=== PATIENT | male | born 1965 | race Caucasian/White ===

== ENCOUNTER → 2024-03-27 10:00 | Outpatient (REF) | payer OTHER, SELFPAY | LOC: HWRAD 10:00 | PROVIDERS: ATTENDING PHYSICIAN Internal Medicine | DX: M54.16 Radiculopathy, lumbar region (principal); M54.2 Cervicalgia | CPT/HCPCS: 72050; 72110 ==

== ENCOUNTER → 2024-04-11 13:59 | Outpatient (REF) | payer OTHER, SELFPAY | LOC: HWRAD 13:59 | PROVIDERS: ATTENDING PHYSICIAN Internal Medicine | DX: I71.40 Abdominal aortic aneurysm, without rupture, unspecified (principal) | CPT/HCPCS: 76770 ==

== ENCOUNTER → 2024-07-09 08:01 | Outpatient (REF) | payer OTHER, SELFPAY | LOC: DHCBC/DCA 08:01 | PROVIDERS: ATTENDING PHYSICIAN Internal Medicine Cardiovascular Disease; FAMILY PHYSICIAN Internal Medicine | DX: R07.89 Other chest pain (principal) | CPT/HCPCS: 78452; 93017; A9500 ==

== ENCOUNTER → 2024-08-06 13:55 | Outpatient (REF) | payer OTHER, MEDICARE, SELFPAY | LOC: HWRCS 13:55 | PROVIDERS: ATTENDING PHYSICIAN Internal Medicine Cardiovascular Disease; FAMILY PHYSICIAN Internal Medicine | DX: R07.89 Other chest pain (principal) | CPT/HCPCS: 93306 ==

== ENCOUNTER → 2025-01-28 08:05 | Outpatient (REF) | payer OTHER, SELFPAY | LOC: HWRAD 08:05 | PROVIDERS: ATTENDING PHYSICIAN Internal Medicine; FAMILY PHYSICIAN Internal Medicine | DX: Z87.891 Personal history of nicotine dependence (principal); F17.210 Nicotine dependence, cigarettes, uncomplicated | CPT/HCPCS: 71271 ==

== ENCOUNTER 2025-02-16 06:41 | Day surgery (SDC) | payer OTHER, SELFPAY ==
[2025-02-10 09:02] LABS: Hemoglobin 14.3 g/dL (13.0-18.0); Mean Corp Hgb Conc. 33.3 g/dL (33.0-37.0); Mean Corpuscular Hgb 29.7 pg (27.0-31.0); Mean Corpuscular Volume 89.4 fL (80.0-94.0); Mean Platelet Volume 9.6 fL (7.4-10.4); Platelet Count 252 10^3/uL (130-400); Red Blood Cell Count 4.81 10^6/uL (4.70-6.10); Red Cell Dist. Width 14.1 % (11.5-14.5); White Blood Cell Count 6.2 10^3/uL (4.8-10.8)
[2025-02-10 09:16] LABS: APTT 31.1 Sec (23.4-35.0); INR 1.05
[2025-02-10 09:47] LABS: Blood Urea Nitrogen 13 mg/dl (9-20); Calcium 9.5 mg/dl (8.4-10.2); Carbon Dioxide 26 mmol/L (22-30); Chloride 107 mmol/L (98-107); Glucose 129 mg/dl (70-99); Potassium 4.7 mmol/L (3.5-5.1); Sodium 143 mmol/L (135-145); eGFR > 60.00
[2025-02-10 13:53] VITALS: BMI 24.4
[2025-02-16] VITALS (9 sets, daily range): BP systolic 113–157; BP diastolic 69–92; BMI 24.4
[2025-02-16] MEDS: DUONEB 3 ML INH (12:59)
== END 2025-02-16 17:14 | disposition home or self-care (01) ==
LOC: GI 06:41
PROVIDERS: ATTENDING PHYSICIAN Internal Medicine Critical Care Medicine; FAMILY PHYSICIAN Internal Medicine
DX: C34.12 Malignant neoplasm of upper lobe, left bronchus or lung (principal); R91.8 Other nonspecific abnormal finding of lung field; R06.02 Shortness of breath; J43.9 Emphysema, unspecified; R93.89 Abnormal findings on diagnostic imaging of other specified body structures; Z72.0 Tobacco use
CPT/HCPCS: 31629; 31628; 31624; 31623; 31654; 31627; 88173; 88305; 36415; 71045; 76000; 80048; 85027; 85610; 85730; 87015; 87070; 87102; 87116; 87205; 88112; 88341; 88342; 94640; C1887

== ENCOUNTER → 2025-02-25 13:14 | Outpatient (REF) | payer OTHER, SELFPAY | LOC: PET 13:14 | PROVIDERS: ATTENDING PHYSICIAN Internal Medicine Critical Care Medicine | DX: C34.12 Malignant neoplasm of upper lobe, left bronchus or lung (principal) | CPT/HCPCS: 78815; A9552 ==

== ENCOUNTER → 2025-03-05 20:33 | Outpatient (REF) | payer OTHER, SELFPAY | LOC: MRI 3T 20:33 | PROVIDERS: ATTENDING PHYSICIAN Internal Medicine Hematology & Oncology; FAMILY PHYSICIAN Internal Medicine | DX: C34.12 Malignant neoplasm of upper lobe, left bronchus or lung (principal) | CPT/HCPCS: 70553; A9575 ==

== ENCOUNTER 2025-04-15 07:34 | Inpatient (IN) | payer OTHER, SELFPAY ==
[2025-03-26 08:28] VITALS: BMI 29.1
[2025-03-26 09:00] LABS: % Basophils 0.8 % (0-2); % Immature Granulocytes 0.8 % (0-0.5); % Lymphocytes 29.9 % (20.5-51.1); % Monocytes 7.6 % (1.7-9.3); % Neutrophils 54.9 % (42.2-75.2); Absolute Basophils 0.1 10^3/uL (0-0.2); Absolute Eosinophils 0.4 10^3/uL (0-0.7); Absolute Immature Granulocytes 0.1 10^3/uL (0-0.05); Absolute Lymphocytes 2.1 10^3/uL (1.2-3.4); Absolute Monocytes 0.5 10^3/uL (0.1-0.6); Absolute Neutrophils 3.9 10^3/uL (1.4-6.5); Hematocrit 43.9 % (39.0-52.0); Hemoglobin 14.9 g/dL (13.0-18.0); Mean Corp Hgb Conc. 33.9 g/dL (33.0-37.0); Mean Corpuscular Hgb 29.6 pg (27.0-31.0); Mean Corpuscular Volume 87.1 fL (80.0-94.0); Mean Platelet Volume 9.6 fL (7.4-10.4); Nucleated Red Blood Cells % 0 % (-); Platelet Count 251 10^3/uL (130-400); Red Blood Cell Count 5.04 10^6/uL (4.70-6.10); Red Cell Dist. Width 13.5 % (11.5-14.5); White Blood Cell Count 7.2 10^3/uL (4.8-10.8)
[2025-03-26 09:14] LABS: APTT 30.3 Sec (23.4-35.0); INR 0.99; PT 13.4 Sec (11.4-14.6)
[2025-03-26 09:34] LABS: Glycohemoglobin (HgbA1c) 5.8 % (4.0-5.6)
[2025-03-26 09:45] LABS: ALT (SGPT) 25 U/L (0-50); AST (SGOT) 20 U/L (17-59); Albumin 4.8 g/dl (3.5-5.0); Alkaline Phosphatase 63 U/L (38-126); Blood Urea Nitrogen 15 mg/dl (9-20); Calcium 9.5 mg/dl (8.4-10.2); Carbon Dioxide 21 mmol/L (22-30); Chloride 108 mmol/L (98-107); Direct Bilirubin 0.1 mg/dl (0.0-0.4); Estimated Creatinine Clearance 101 ml/min; Glucose 122 mg/dl (70-99); Potassium 4.7 mmol/L (3.5-5.1); Sodium 139 mmol/L (135-145); Total Bilirubin 0.6 mg/dl (0.2-1.3); Total Protein 7.8 g/dl (6.3-8.2); eGFR > 60.00
--- NOTE | 2025-03-26 09:52 | CM ---
Met with Mr. Serrato in [facility]. He states prior to admission he resides alone in a second floor walk-up duplex with twenty steps to enter. He states he has a one level home once inside the duplex. He states prior to admission he was independent
with ambulation and adls. He has a walker, and single point cane. He states he has a prescription plan and uses [facility]. He states he does not have anyone to assist in him at home. The discharge plan is to return home with a home
visit by the Transitional Care Nurse when medically stable.
We reviewed pre-op and post-op routines. We reviewed the shower instructions. He has the soap, written instructions and the Thoracic Lung Educational Booklet. We reviewed restrictions including driving and lifting restrictions. We also discussed
a home visit by the Transitional Care Nurse. He is agreeable to a home visit. The plan is for Left Upper Lobe Lobectomy on Sunday, April 01, 2025.
[2025-03-26 09:59] LABS: Urine Albumin Negative (Neg - Trace); Urine Bilirubin Negative (Negative); Urine Character Clear (Clear); Urine Color Yellow; Urine Glucose Negative (Negative); Urine Ketone Negative (Negative); Urine Leukocyte Negative (Negative); Urine Nitrite Negative (Negative); Urine Occult Blood Negative (Negative); Urine Urobilinogen Negative (Neg - 1+)
[2025-04-15] VITALS (14 sets, daily range): BP systolic 99–165; BP diastolic 79–128; BMI 28.4
--- NOTE | 2025-04-15 08:00 | PTCARENOTE ---
Patient clipped and prepped; CHG cloth wipes completed; Patient belongings placed in bag in room and patient oriented to room
--- NOTE | 2025-04-15 08:26 | W.CVOR.SURPR ---
CVOR Surgeon Immed Pre Op
-
I have examined this patient prior to performance of the scheduled procedure.
The patient's condition is unchanged from the time of the dictated/written History and
Physical and the patient is able to undergo the scheduled procedure.
RATS HARMEET + LN Dissection
[2025-04-15 09:54] LABS: Urine Albumin Negative (Neg - Trace); Urine Bilirubin Negative (Negative); Urine Character Clear (Clear); Urine Color Yellow; Urine Glucose Negative (Negative); Urine Ketone Negative (Negative); Urine Leukocyte Negative (Negative); Urine Nitrite Negative (Negative); Urine Occult Blood Negative (Negative); Urine Specific Gravity 1.015 (<1.030); Urine Urobilinogen Negative (Neg - 1+)
--- NOTE | 2025-04-15 12:59 | W.PN.CT.SURG ---
CT Surgery Operative Note
-
THORACIC SURGERY OPERATIVE REPORT
Preoperative Diagnosis: Left upper lobe adenocarcinoma
Postoperative Diagnosis: Same
Procedure(s) Performed:
1. Robotic assisted thoracic surgery [RATS]
2. Left upper lobectomy
3. Radical lymph node dissection
4. Serratus block performed by anesthesia
Date of Surgery: 04/15/2025
Comorbidities:
1. Left upper lobe adenocarcinoma
2. Bipolar disorder
3. Hepatitis C
4. History of pneumonia with chemical exposure?
5. History of chronic bronchitis
6. Colonic polyps
7. Asthma
8. COPD/emphysema
9. Spinal stenosis
10. Tobacco abuse
Attending Surgeon: Obey Hall MD, MS
Assistants: Marbella Villafuerte PA-C (present and necessary to telecom assistant, exchanging robotic instruments, retraction, suction, exposure, suture management, and wound closure under my direction)
Anesthesiology: Luan Crowley MD and Jarred Rmoan CRNA
Scrub and Circulating RNs: Jaki Cortez RN, Lori Box RN
Anesthesia: Dual Lumen GETA
EBL: 50 cc
Products: None
Indication(s) for Procedures: This is a 59-year-old male who was diagnosed with left upper lobe adenocarcinoma. Given the size of the mass being nearly 4 cm and cystic pattern, he was counseled by having a left upper lobectomy with lymph node
dissection. Despite his PET CT scan appearance demonstrating mild uptake of the bilateral hilar lymph nodes, EBUS evaluation of his mediastinal nodes did not demonstrate any obvious abnormal appearing lymph nodes. Therefore multidisciplinary team
discussion with oncology came to the consensus that this was likely inflammatory and so I offered him lobectomy plus lymph node dissection.
Findings: There were no obvious intrathoracic lesions that were concerning for metachronous disease. He did have an obvious changes to his lungs from history of smoking and environmental factors. He did well developed fissures between the left
upper and lower lobe, there were some adhesions of his left upper lobe to his apex particularly where he had bullous emphysema. The lung was dissected circumferentially and any lymph nodes that were seen were dissected out and For permanent
pathology. Once I had his hilum exposed, the first artery to be taken was his lingular branch which was a single branch heading up from a basilar branch towards the left lower lobe. This was taken with a white load stapler. Next a lymph node
around this area were dissected. I then worked my way posteriorly and found that there was a larger branch towards the posterior lateral apical segments. This was taken with a white load stapler. At this point in order to fully expose his
bronchus and the remaining 2 branches of the left upper lobe supplying the apex, I took the pulmonary veins flush to the hilum with a white load stapler. This then exposed the 2 remaining pulmonary arterial branches which were taken with white load
staplers. The bronchus was then elevated and a green load stapler was placed across this and clamped. Test inflation demonstrated unobstructed flow to the remaining left lower lobe and so that the stapler was fired. The hilum was then sealed with
hemostatic agent. He had a mild intermittent +1 airleak at the conclusion of the case while on positive pressure ventilation. He did not have any significant loss in tidal volumes and was able to be extubated without incident.
Specimen(s):
Station 9, x 1 nodes
Station 10, x 2 nodes
Station 11, x 4 nodes
Station 5/6, x 6 nodes
Station 7, x 1 nodes
Left upper lobe
Description of Procedure: The patient was taken to the operating room. Induction via general anesthesia with endotracheal intubation was performed and peripheral venous access and arterial monitoring were inserted. Anesthesia performed a serratus
block preoperatively. Their identity and procedure to be performed were verified and they were positioned with the left side up on the operating table. The patient was then prepped and draped in a sterile fashion. A preoperative time-out was
performed with all members of the team present. A Veress needle was used to insufflate the chest after isolating the lung. An 8 mm port was placed in the midaxillary line at approximately the eighth intercostal space and confirmed to be
intrathoracic without significant pulmonary injury. The chest was surveyed for any evidence of metastatic disease. Patient tolerate insufflation without complication. 2 additional 12 mm trocars were placed on either side under camera guidance and a
third 8 mm trocar was placed along the back. A 12 mm content assistant port was placed in the 11th intercostal space above the insertion of the diaphragm.
The thoracic cavity was inspected for evidence of metastatic disease. None was observed. We started with mobilization of the inferior pulmonary ligament. We worked our way clockwise dissecting out the hilum and harvest any lymph nodes identified.
The pulmonary arteries and veins leading to the left upper lobe were identified and skeletonized. They were sequentially divided with a white load stapler. I clamped the bronchus and performed a test inflation which demonstrated unobstructed flow
into the remaining left lower lobe. The specimen was displaced toward the apex while a chest tube was inserted and placed laterally towards the apex. A bubble test was performed to identify any air leaks. CoSeal was used to reinforce the staple
lines and hilum. The left upper lobe was then placed into a specimen bag and extracted from the chest cavity. After confirming hemostasis, the lung was fully inflated and all ports were removed. Incisions were closed in 3 layers including the
fascia, dermal, and epidermis. Additional local anesthesia was injected into all incision sites. The skin wound was cleansed and sealed with Dermabond glue.
All instrument, sponge, and needle counts were confirmed to be correct x 2 at the end of the operation. The patient was transferred to the cardiac intensive care unit extubated in critical but stable condition.
I, Dr. Obey Hall, was present, scrubbed for, and performed all critical elements of this procedure.
Oeby Hall MD, MS
Cardiothoracic Surgeon
[facility]
This operative dictation was created using the [employer] dictation system. Please excuse any grammatical, typographical, or 'sound alike' errors
--- NOTE | 2025-04-15 14:25 | PTCARENOTE ---
pt received from pacu to CVICU room 2267. pt drowsy, arouses to voice, drifts back to sleep quickly. SR on telemtry herat rate in 80s. pules palpable. no edema. pt on 2L nasal cannula, sat 98%. lung sounds diminished in bases. active bowel sounds.
denies urge to void at this time. Left pleural chest tube to -20 suction with small amount of sanginous fluid, small +1 air leak no crepitus noted. surgical sites DISTANCE LEARNING TECHNICIAN with surgical adhesive. Left arterial line leveled and zeroed with appropriate
waveform. correlating with cuff blood pressure. pt updated on plan of care.
[2025-04-15] MEDS: TYLENOL 1000 MG PO ×2 (15:14→20:49)
[2025-04-15] MEDS: HEPARIN 5000 UNITS SC ×2 (15:14→23:00)
[2025-04-15] MEDS: NEURONTIN 100 MG PO ×2 (15:14→20:49)
--- NOTE | 2025-04-15 16:45 | PTCARENOTE ---
attempted to get pt OOB to chair. sat at side of bed, stated he felt lightheaded and hot- heart rate dropped to 50s, blood pressure 99/79. assisted back to bed. pt reports feeling better, blood pressure 123/93 heart rate 80s.
[2025-04-15] MEDS: ANCEF 5 IV (17:44)
[2025-04-15] MEDS: ROXICODONE 2.5 MG PO (18:02)
[2025-04-15] MEDS: DILAUDID 0.25 MG IV (19:07)
--- NOTE | 2025-04-15 20:15 | PTCARENOTE ---
received pt from previous rn. pt AAOx4, VSS, NSR/ Sinus tachy per tele monitor HR 90-100s, +pulses, pox 98% on 2L NC, lungs diminished, Left pleural chest tube to -20 suction with sanguinous fluid, small +1 air leak no crepitus noted. +bs, pt
voiding clear urine in urinal, all surgical sites intact, CT dressing c/d/i. PIVx2 intact. plan of care discussed and questions encouraged. call robert within reach
[2025-04-15] MEDS: WELLBUTRIN SR (12 hour sustained release) 150 MG PO (20:47)
[2025-04-15] MEDS: SENOKOT 8.6 MG PO (20:49)
[2025-04-15] MEDS: ASPIR LOW (ENTERIC COATED) 81 MG PO (20:49)
[2025-04-15] MEDS: FLEXERIL 5 MG PO (20:49)
[2025-04-15] MEDS: LOPRESSOR 12.5 MG PO (20:49)
[2025-04-15] MEDS: TORADOL 15 MG IV (22:04)
[2025-04-15] MEDS: TUMS EX (EXTRA STRENGTH) CHEWABLE TABLET 300 MG PO (22:57)
[2025-04-16] VITALS (7 sets, daily range): BP systolic 136–158; BP diastolic 74–99; BMI 28.4
--- NOTE | 2025-04-16 00:05 | PTCARENOTE ---
pt resting comfortably in bed, NSR per tele monitor HR 80s, assessment remains unchanged
[2025-04-16] MEDS: ANCEF 5 IV ×2 (01:54→12:23)
--- NOTE | 2025-04-16 03:08 | W.PN.CT ---
Today's Communication / Plan
-
-pod #1
-no issues overnight
-L pleural CT on -20 sxn, has frequent intermittent air leak, put out 60/95 in 12/24 hrs
-follow daily CXR
-encourage IS, OOB
Assessment / Plan
-
- Left upper lobe adenocarcinoma- s/p Robotic assisted thoracic surgery [RATS]; Left upper lobectomy; Radical lymph node dissection by Dr. Hall on 04/15/25, pod #1
- Bipolar disorder
- Hepatitis C
- History of pneumonia with chemical exposure?
- History of chronic bronchitis
- Colonic polyps
- Asthma
- COPD/emphysema
- Spinal stenosis
- Tobacco abuse
- Acute postop atelectasis
Discussed patient care with: Nursing and Care Team
Subjective
-
Date of Service: April 16, 2025
Objective Data
-
PT 13.4 Sec (11.4-14.6) 03/26/25 08:36
INR 0.99 03/26/25 08:36
APTT 30.3 Sec (23.4-35.0) 03/26/25 08:36
Vital Signs
Vital Signs
Temp Pulse Resp BP Pulse Ox
97.6 F 88 19 158/99 97
04/16/25 00:02 04/16/25 00:02 04/16/25 00:02 04/16/25 00:02 04/16/25 00:02
CT Intake/Output/Weight
04/15/25 04/15/25 04/16/25
06:59 18:59 06:59
Intake Total 480 / 480
Output Total 35 / 940 905 / 940
Balance 445 / -460 -905 / -460
SaO2: 97
Physical Exam
-
General: Awake and AOx3
Cardiovascular: Regular rate & rhythm, No Murmurs and No Rub
Respiratory: Decreased Breath Sounds (no crepitus noted)
Incision: Clean, Dry and Dressing Intact
Extremities: No Edema
Abdomen: soft, nondistended, nontender, + bowel sounds
Data Reviewed
-
Lab Results: Results Reviewed
Medications: Active Meds Reviewed
Chest X-Ray: Report Reviewed and Image Reviewed
ECG: Report Reviewed and Image Reviewed
[2025-04-16 04:21] LABS: Hematocrit 39.8 % (39.0-52.0); Hemoglobin 13.6 g/dL (13.0-18.0); Mean Corp Hgb Conc. 34.2 g/dL (33.0-37.0); Mean Corpuscular Hgb 29.7 pg (27.0-31.0); Mean Corpuscular Volume 86.9 fL (80.0-94.0); Mean Platelet Volume 9.5 fL (7.4-10.4); Platelet Count 234 10^3/uL (130-400); Red Blood Cell Count 4.58 10^6/uL (4.70-6.10); Red Cell Dist. Width 13.8 % (11.5-14.5); White Blood Cell Count 14.9 10^3/uL (4.8-10.8)
--- NOTE | 2025-04-16 04:22 | PTCARENOTE ---
routine labs obtained. NSR per tele monitor , assessment remains unchanged.
[2025-04-16 04:48] LABS: Blood Urea Nitrogen 17 mg/dl (9-20); Calcium 9.8 mg/dl (8.4-10.2); Carbon Dioxide 24 mmol/L (22-30); Chloride 106 mmol/L (98-107); Estimated Creatinine Clearance 101 ml/min; Glucose 146 mg/dl (70-99); Potassium 4.5 mmol/L (3.5-5.1); Sodium 138 mmol/L (135-145); eGFR > 60.00
[2025-04-16] MEDS: TYLENOL 1000 MG PO ×3 (06:31→22:01)
[2025-04-16] MEDS: TORADOL 15 MG IV ×3 (06:35→22:06)
[2025-04-16] MEDS: LIDOCAINE 4% PATCH 1 PATCH TOPICAL (08:23)
[2025-04-16] MEDS: MIRALAX 17 GRAMS PO (08:23)
[2025-04-16] MEDS: FLEXERIL 5 MG PO (08:24)
[2025-04-16] MEDS: HEPARIN 5000 UNITS SC ×2 (08:24→16:00)
[2025-04-16] MEDS: LOPRESSOR 12.5 MG PO ×2 (08:24→19:56)
[2025-04-16] MEDS: NEURONTIN 100 MG PO ×3 (08:24→22:02)
[2025-04-16] MEDS: SENOKOT 8.6 MG PO ×2 (08:24→19:56)
[2025-04-16] MEDS: ROXICODONE 2.5 MG PO ×3 (08:24→18:12)
[2025-04-16] MEDS: DILAUDID 0.25 MG IV (08:25)
[2025-04-16] MEDS: WELLBUTRIN SR (12 hour sustained release) 150 MG PO ×2 (08:27→19:55)
[2025-04-16] MEDS: SPIRIVA RESPIMAT 2.5 MCG 2 PUFF INH (08:31)
[2025-04-16] MEDS: STRIVERDI RESPIMAT 2 PUFF INH (08:31)
--- NOTE | 2025-04-16 09:12 | PTCARENOTE ---
assumed care of pt from previous shift RN, sinus rhythm on tele, VSS, + peripheral pulses, no edema noted. Lungs diminished, pox 95% on RA, coughing and deep breathing encouraged. +bs, tolerating PO intake, voids spontaneously. PIV x2 flush easily.
LP CT placed to H20 seal. Pt medicated for pain. Plan of care reviewed w the pt and questions encouraged.
--- NOTE | 2025-04-16 11:36 | CM ---
Chart reviewed. Patient OOB sitting in the chair. Chest tube to H2O seal, waiting for a repeat CXR. Patient is independent of ADLS, lives alone in a 2nd floor Duplex, [address], 0 DME but has a SPC and RW at home if needed. Plan is for the
patient to return home with CT Transitional RN. CM to follow
--- NOTE | 2025-04-16 12:34 | PTCARENOTE ---
pt ambulating without difficulty, medicated for pain with good result. VSS.
--- NOTE | 2025-04-16 18:15 | PTCARENOTE ---
Pt assessed. Left pleural chest tube to water seal. (+) tidaling with inspiration and expiration. No crepitus observed. 60ml red output total for shift. SaO2 95% on room air. Incentive spirometer encouraged; 1,000ml witnessed. PRN Roxicodone 2.5mg
administered for 5/10 left chest pain. Chest XR obtained.
--- NOTE | 2025-04-16 20:00 | PTCARENOTE ---
Resumed care of pt from previous RN. Walking rounds completed. sinus rhythm on tele, VSS, + peripheral pulses, no edema noted. Lungs diminished, pox 95% on RA. LP CT placed to H20 seal. no crepitus. tidaling noted. occasional spasms' +bs, BRP. PIV
x2 will continue to montir
[2025-04-16] MEDS: ASPIR LOW (ENTERIC COATED) 81 MG PO (22:02)
[2025-04-17 00:13] VITALS: BP 140/103
[2025-04-17] MEDS: HEPARIN 5000 UNITS SC ×2 (00:18→07:59)
[2025-04-17 04:33] VITALS: BP 139/83
[2025-04-17 06:00] VITALS: BMI 28.6
[2025-04-17] MEDS: TORADOL 15 MG IV ×2 (06:07→12:07)
[2025-04-17] MEDS: TYLENOL 1000 MG PO ×2 (06:07→14:13)
[2025-04-17 07:56] VITALS: BP 148/92
[2025-04-17] MEDS: FLEXERIL 5 MG PO (07:57)
[2025-04-17] MEDS: LOPRESSOR 12.5 MG PO (07:57)
[2025-04-17] MEDS: NEURONTIN 100 MG PO ×2 (07:58→15:59)
[2025-04-17] MEDS: WELLBUTRIN SR (12 hour sustained release) 150 MG PO (07:58)
[2025-04-17] MEDS: SENOKOT 8.6 MG PO (07:58)
[2025-04-17] MEDS: LIDOCAINE 4% PATCH 1 PATCH TOPICAL (07:58)
[2025-04-17] MEDS: MIRALAX 17 GRAMS PO (07:59)
[2025-04-17] MEDS: SPIRIVA RESPIMAT 2.5 MCG 2 PUFF INH (08:14)
[2025-04-17] MEDS: STRIVERDI RESPIMAT 2 PUFF INH (08:14)
--- NOTE | 2025-04-17 08:35 | W.PN.CT ---
Addendum entered and electronically signed by Nava Mckeon PA-C 04/17/25 13:43:
additional dx:
tiny left apical pneumothorax, stable
Original Note:
Today's Communication / Plan
-
-pod #2
-no issues overnight
-L pleural CT on water seal, has air leak with cough only. No significant CT output (<20 overnight)
-CXR is stable
-encourage IS, OOB
Assessment / Plan
-
- Left upper lobe adenocarcinoma- s/p Robotic assisted thoracic surgery [RATS]; Left upper lobectomy; Radical lymph node dissection by Dr. Hall on 04/15/25, pod #2
- Bipolar disorder
- Hepatitis C
- History of pneumonia with chemical exposure?
- History of chronic bronchitis
- Colonic polyps
- Asthma
- COPD/emphysema
- Spinal stenosis
- Tobacco abuse
- Acute postop atelectasis
Discussed patient care with: Nursing and Care Team
Subjective
-
Date of Service: April 17, 2025
Objective Data
-
Lab Results
04/16/25 04:09
04/16/25 04:09
PT 13.4 Sec (11.4-14.6) 03/26/25 08:36
INR 0.99 03/26/25 08:36
APTT 30.3 Sec (23.4-35.0) 03/26/25 08:36
Vital Signs
Vital Signs
Temp Pulse Resp BP Pulse Ox
97.7 F 64 16 148/82 99
04/17/25 08:00 04/17/25 08:18 04/17/25 08:18 04/17/25 07:57 04/17/25 08:18
CT Intake/Output/Weight
04/16/25 04/17/25 04/17/25
18:59 06:59 18:59
Intake Total 580 / 1060 480 / 1060 480 / 480
Output Total 60 / 145 85 / 145
Balance 520 / 915 395 / 915 480 / 480
SaO2: 99
Physical Exam
-
General: Awake and AOx3
Cardiovascular: Regular rate & rhythm, No Murmurs and No Rub
Respiratory: Decreased Breath Sounds (no crepitus noted)
Incision: Clean, Dry and Dressing Intact
Abdomen: soft, nondistended, nontender, + bowel sounds
Extremities: No Edema
Data Reviewed
-
Lab Results: Results Reviewed
Medications: Active Meds Reviewed
Chest X-Ray: Report Reviewed and Image Reviewed
ECG: Report Reviewed and Image Reviewed
--- NOTE | 2025-04-17 10:37 | PTCARENOTE ---
Assumed care of pt from classroom instructor RN. AAOx3. Pt anxious at times. NSR on greens or grounds superintendent. VSS. Lungs diminished at bases. SpO2 96% on 2L. LP CT clamped per order. No crepitus noted. Dressing CDI.Portable CXR ordered for 1100. Surgical sites
approximated with surgical adhesive present. +BS, BM x1 today. Pt OOB in chair, call robert in reach.
--- NOTE | 2025-04-17 10:56 | PN.CDI ---
CDI
- -
CDI:
Physician Documentation Request
Admit Date: 04/15/25 07:[address] Surgery,
Please review the following and provide your response in the progress notes.
Clinical Indicators:
The diagnosis of pneumothorax was included in the signed 04/15 CXR
- 04/15 CXR 'Tiny left-sided pneumothorax is present'
- 04/16 CXR 'Minimally enlarged but small left pneumothorax'
- 04/17 XCR 'Tiny left-sided pneumothorax, stable'
- Incentive spirometry initiated
Please indicate in your progress notes if you are in agreement that the above diagnosis is valid for this patient:
____ - Pneumothorax is a valid diagnosis (Please include it in your progress notes)
____ - Pneumothorax is not a valid diagnosis for this patient
____ - Pneumothorax is not yet confirmed but remains a suspected condition
____ - Other
Use of terms such as suspected, likely, concern for, or probable are acceptable for a diagnosis that is being evaluated, monitored or treated as if it exists and can be coded in the inpatient setting, when documented at the time of discharge.
Thank you,
Anaya Hanley RN
CDI Specialist
Please use your independent medical judgment in providing your response.
[2025-04-17 11:15] VITALS: BP 126/76
--- NOTE | 2025-04-17 12:00 | PTCARENOTE ---
LP CT removed at bedside by human resources recruiter. Dressing CDI. Pt weaned to room air, SpO2 95%. Assessment otherwise unchanged.
--- NOTE | 2025-04-17 12:08 | CM ---
Chart reviewed. Patient is independent of ADLS, lives alone in a 2nd floor duplex, [address], 0 DME but has a SPC and RW at home. Plan is for the patient to return home with CT Transitional RN. CM to follow
--- NOTE | 2025-04-17 13:26 | W.PN.UPDATE ---
Update Note
Progress Note Update
Left chest tube removed by me without incident. black silk sutures removed, green ethibond tied down. vaseline gauze dressing applied. Pt tolerated very well.
--- NOTE | 2025-04-17 14:20 | W.DCSUMMARY ---
Discharge Summary
Discharge Data
Date of Admission: 04/15/25
Date of Discharge: 04/17/25
-
Pending Results: No
Hospital Course
Primary care physician: Dr. Douglas Osorio DO
Outpatient nail feeder: Dr. Lynsey Bee MD
Inpatient consultants: None
Procedures:
1. RATS HARMEET + LN Dissection
Primary Diagnosis:
1. HARMEET adenocarcinoma (NSCLC)
Secondary Diagnoses:
1. Emphysema
2. Bipolar 1 disorder
3. Hepatitis C
HPI: 59-year-old male who was diagnosed with non-small cell lung cancer of the left upper lobe who underwent elective RATS of Left Upper Lobe and Lymph Node dissection
Hospital course: Patient was admitted on 04/15/25 for RATS of left upper lobe and lymph node dissection with Dr. Obey Hall. In progressive fashion, patient's left pleural chest tube was discontinued without issue on post-op day #2. On post-op day
#1, he was ambulating and tolerating his diet. He was initiated on Metoprolol Tartrate for arrhythmia prophylaxis. He was discharged home on post-op day 2 with resumption of his previous home regiment and addition of Metoprolol Tartrate. As needed
pain medication were added for outpatient pain control. He will be followed by Transitional Care Nursing upon discharge. He was scheduled for post-operative follow-up appointment with Dr. Hall. Prior to his outpatient appointment, he was ordered to
obtain a chest x-ray.
Home medication changes:
- Metoprolol Tartrate 12.5 mg BID
- Flexeril 5 mg PRN for muscle spasms
- Oxycodone 2.5 mg q6h PRN for moderate-severe pain
- Acetaminophen 650 mg q6h PRN for mild-moderate pain
- Lidocaine 4% patch for 12 hours PRN for localized pain.
Discharge Plan
-
Patient Disposition: Home (Routine Discharge)
Discharge Diagnosis/Procedures: Left Upper Lobe adenocarcinoma (NSCLC) status post RATS Left Upper Lobe with Lymph Node dissection
Condition: Good
Diet: Regular
Activity: As tolerated
Driving Restrictions: No driving until discontinuing use of pain meds.
Bathing Restrictions: OK to Shower
Others Tests: Repeat Chest X-ray prior to your office visit with Dr. Hall.
Wound Care: Leave chest tube dressing intact for 24-hours. After 24-hours you can remove dressing and take a shower daily.
Referrals:
CT Transitional Care Nurse [Outside]
Referral Note: The Cardiothoracic Transitional Care Nurse will call you to set up a visit in 1-2 days.
Trudy Self MD [Family Provider, Internal Medicine]
Obey Hall MD [Active, Cardiac Surgery] - 05/04/25 2:15 pm
Prescriptions:
New
cyclobenzaprine 10 mg Tablet
5 mg PO Q8HPRN PRN (Reason: muscle spasm) Qty: 10 0RF
metoprolol tartrate 25 mg Tablet
12.5 mg PO BID Qty: 30 0RF
lidocaine 4 % Adhesive Patch,Medicated
1 patch topical DAILY Qty: 0 0RF
acetaminophen 325 mg Tablet
650 mg PO Q6HPRN PRN (Reason: mild pain,headache,temp >101F ) Qty: 0 0RF
oxycodone 5 mg Tablet
2.5 mg PO Q6HPRN PRN (Reason: mild pain) Qty: 14 0RF
Continued
losartan 50 mg Tablet
50 mg PO HS
bupropion HCl [Wellbutrin SR] 150 mg Tablet Sustained-Release 12 Hr
150 mg PO BID
aspirin 81 mg Tablet,Delayed Release (Dr/Ec)
81 mg PO HS
xkkrtwfohlcq-xetworhw-rdkbti Tablet
1 tab PO DAILY
minoxidil [Rogaine] 5 % Foam
1 ea TOPICAL DAILY
umeclidinium-vilanterol [Anoro Ellipta] 62.5-25 mcg/actuation Blister With Device
1 inh INHALATION DAILY
Discharge Orders:
Discharge Patient (As Directed); Ordered 04/17/25
Ordered By: Fela Grant
Care Plan Goals
Care Plan Goals:
Problem: Readiness for enhanced knowledge related to diagnosis and treatment plan
Goal: Understand your diagnosis and treatment plan needs, including medications if applicable.
Instructions: Know your diagnosis, underlying causes and treatment plan options, including medications if applicable. Consult with your health care team to learn about your diagnosis and treatment plan, including medications if applicable.
Discharge Date and Time
Print Language: DIVEHI
[2025-04-17 15:19] VITALS: BP 156/89
== END 2025-04-17 17:00 | disposition home or self-care (01) | DRG 164 ==
LOC: CVICU 07:34
PROVIDERS: Nurse Practitioner; ADMITTING PHYSICIAN Thoracic Surgery (Cardiothoracic Vascular Surgery); FAMILY PHYSICIAN Internal Medicine; OTHER PHYSICIAN Internal Medicine Cardiovascular Disease
PROC: 8E0W4CZ Robotic Assisted Procedure of Trunk Region, Percutaneous Endoscopic Approach (ICD-10-PCS; 2025-04-15)
PROC: 07T74ZZ Resection of Thorax Lymphatic, Percutaneous Endoscopic Approach (ICD-10-PCS; 2025-04-15)
PROC: 0BTG4ZZ Resection of Left Upper Lung Lobe, Percutaneous Endoscopic Approach (ICD-10-PCS; 2025-04-15)
DX: C34.12 Malignant neoplasm of upper lobe, left bronchus or lung (principal); J95.811 Postprocedural pneumothorax; J98.11 Atelectasis; J43.9 Emphysema, unspecified; F17.210 Nicotine dependence, cigarettes, uncomplicated; F31.9 Bipolar disorder, unspecified; B19.20 Unspecified viral hepatitis C without hepatic coma; M48.00 Spinal stenosis, site unspecified; Y83.6 Removal of other organ (partial) (total) as the cause of abnormal reaction of the patient, or of later complication, without mention of misadventure at the time of the procedure; Z79.82 Long term (current) use of aspirin; Z79.899 Other long term (current) drug therapy; Z87.01 Personal history of pneumonia (recurrent)
CPT/HCPCS: 88305; 88309; 32505; 36415; 71045; 80048; 80053; 81003; 81459; 82248; 83036; 83735; 85025; 85027; 85610; 85730; 86850; 86900; 86901; 86920; 87070; 88313; 93005; 94640; 99406

== ENCOUNTER → 2025-04-27 09:53 | Outpatient (REF) | payer OTHER, SELFPAY | LOC: RAD 09:53 | PROVIDERS: ATTENDING PHYSICIAN Thoracic Surgery (Cardiothoracic Vascular Surgery); FAMILY PHYSICIAN Family Medicine | DX: J95.811 Postprocedural pneumothorax (principal) | CPT/HCPCS: 71046 ==

== ENCOUNTER 2025-06-08 15:57 | Inpatient (IN) | payer OTHER, SELFPAY ==
[2025-06-08] VITALS (9 sets, daily range): BP systolic 90–137; BP diastolic 56–99; BMI 27.6; BMI 26.9; BMI 28.5
--- NOTE | 2025-06-08 12:01 | ED.GENMED ---
History of Present Illness
General
Chief Complaint: Weakness
Source: patient
Exam Limitations: altered mental status
Time Seen by Provider: 06/08/25 11:44
Nursing documentation reviewed up to this point in time: agreed with
History of Present Illness
History of Present Illness:
Patient is a 59-year-old male with history lung cancer status post recent lobectomy on chemotherapy, hypertension, hyperlipidemia who presents to the emergency department for evaluation of generalized weakness and confusion. Patient recently
diagnosed with lung CA, underwent left sided lobectomy on 04/15/2025, and had first dose of chemotherapy on Sunday, 3 days ago.
Patient states that he began feeling nauseous and weak yesterday. He states he suffered a fall in the shower and is unknown if he hit his head. He was too weak to get off of the shower floor and is unknown how long he was lying there. Patient
states that he has been having multiple episodes of diarrhea as well as confusion which began last night.
Today�his sister came to check in on him and states he seemed very weak and had a temperature.
He denies any significant chest pain or shortness of breath. No cough. No dizziness. He denies any neck pain.
Past History
Past History
ED Past Medical History: HTN
ED Past Surgical History: Other ( Surg L knee and L hand)
Social History
Tobacco: Smoker
Alcohol: Former
Drug: Cocaine
Personal: Single
Living: other (Living at an alcoholic intermediate.)
Review of Systems
Review of Systems
Allergies reviewed?: Yes
All Other Systems: ROS reviewed and negative except as documented in HPI and ROS
Phy Exam
Physical Exam
Physical Exam:
Vitals: Patient's vital signs are stable. Temp 100.7 F
General: Patient is generally weak
Skin: Warm and dry, no rashes or lesions
Head: Normocephalic, atraumatic
Eyes: Sclera nonicteric. EOMs intact. Pupils equal round and reactive to light bilaterally.
Throat: Protecting airway
Neck: Normal ROM, no cervical spine tenderness, no meningismus
Cardiac: Regular rate and rhythm, no murmurs.
Pulm: Diminished at left upper lobe. Otherwise lungs clear.
Abdomen: Abdomen soft. No areas of focal tenderness.
Extremities: No evidence of cyanosis or edema. Palpable DP pulses bilaterally.
Neuro: AAOx3. Appears drowsy. Moving all extremities. No focal neurologic deficits.
Psychiatric: Normal affect.
Course
Orders/Labs/Results
Orders:
Orders
06/08/25 11:57
CT Head W/o Iv Contrast Urgent
Comment:
Reason For Exam: unwitnessed fall, AMS
06/08/25 11:58
Electrocardiogram (*1) Urgent
Reason for Study: Chest Pain
EKG- Treatment ONCE
Acetaminophen [Tylenol] 650 mg PO NOW STA
CR Chest - 2 Views Urgent
Comment:
Reason For Exam: cough, fever
06/08/25 12:19
COVID-19 Antigen Urgent
Source: Nasal Swab
Complete Blood Count/With Diff Urgent
Comprehensive Metabolic Panel Urgent
Creatine Phosphokinase Urgent
Comment: ADD ON
Lactic Acid Q4H
Comment: CANCEL 2nd LACTIC ACID IF 1st LACTIC ACID IS LESS THAN 2
Serum Osmolality Urgent
Comment: ADD ON
Blood Culture Q30M
KIMBERLY Source: Blood/Venous
Specimen Description:
Influenza A+B Rapid Molecular Urgent
KIMBERLY Source: Nasal Swab
Specimen Description:
06/08/25 12:20
0.9% Sodium Chloride 1000 ml [Nss] 1,000 ml IV BOLUS
06/08/25 13:27
Add On- LAB Urgent
Tests Added?: CK
06/08/25 13:56
Osmolality, Random Urine Urgent
Date Specimen was Collected: 06/08/25
Time Specimen was Collected: 13:55
Comment: ADD ON
Urinalysis Reflex To Culture Urgent
Date Specimen was Collected: 06/08/25
Time Specimen was Collected: 13:55
Urine Drug Abuse Screen Urgent
Date Specimen was Collected: 06/08/25
Time Specimen was Collected: 13:55
Urine Sodium Urgent
Date Specimen was Collected: 06/08/25
Time Specimen was Collected: 13:55
Comment: ADD ON
06/08/25 14:42
Add On- LAB Urgent
Tests Added?: serum osmolality, urine osmolality, urine sodium
06/08/25 15:15
CefTRIAXone [Rocephin] 1,000 mg IV NOW STA
06/08/25 15:16
Azithromycin [Zithromax] 500 mg PO NOW STA
06/08/25 15:17
Norovirus by PCR Routine
KIMBERLY Source: Feces/Stool
Specimen Description:
Stool Culture Routine
KIMBERLY Source: Feces/Stool
Specimen Description:
Stool For WBC Routine
KIMBERLY Source: Feces/Stool
Specimen Description:
06/08/25 15:25
Admit/Transfer Patient As Directed
Co-Sign Provider:
Level of Care: Inpatient admission
Assign to:: Medical/Surgical
Physician / Group: marcy
Diagnosis: acute hypoxic respiratory failure
Reason for Hospitalization: acute hypoxic respiratory failure
Expected length of stay greater than two midnights?: Yes
ELOS- Estimated Length of Stay in days: 3
I certify the patient meets the requirements for IP care: Yes
PRN Pain Medication Management As Directed
May give lesser potent ordered pain med per pt: Yes
preference::
Protocol:: Medication orders for pain may be administered in a
manner that supports deferring to patient preference
when the pt is:
- Requesting an ordered lesser potent pain medication.
Least to most potent pain medications are defined
as: acetaminophen < NSAID < tramadol < opioids
(morphine, oxycodone, hydromorphone).
- Requesting a lesser dose of the same medication IF
ORDERED.
- Requesting a less intrusive route of administration
if both routes are prescribed by the provider (PO <
IV).
06/08/25 15:26
Code Status As Directed
Resuscitation Status: Full Code
06/08/25 15:30
NEPHROLOGY CONSULT Routine
Consulting Provider: Kyree Juarez
Was physician already notified: Yes
06/08/25 15:40
Sterile Water [Sterile Water For Injection] 10 ml IV NOW STA
06/08/25 16:24
Blood Culture Q30M
KIMBERLY Source: Blood/Venous
Specimen Description:
06/08/25 17:17
0.9% Sodium Chloride 1000 ml [Nss] 1,000 ml IV 125 mls/hr
Acetaminophen [Tylenol] 650 mg PO Q4HPRN PRN
06/08/25 17:17
Activity As Directed
Activity Level: Out of Bed-Early Mobility
Intake/ Output As Directed
Frequency: Per unit guidelines
Vital Signs As Directed
Frequency: Per unit guidelines
Weight As Directed
Frequency: Once
Comment: on admission
O2 Therapy [RESP] Routine
Titrate/Wean O2 to maintain O2 sat greater than (%): 95
Special Instructions: Wean as tolerated
Pt Eval And Treat Routine
Activity Level: As Tolerated
DX Deep Vein Thrombosis Video Routine
06/08/25 17:29
Respiratory Culture/Gram Stain Urgent
KIMBERLY Source: Sputum
Specimen Description:
Date Specimen was Collected: 06/08/25
Time Specimen was Collected: 17:25
06/08/25 18:00
Enoxaparin Sodium [Lovenox] 40 mg SC QPM
06/08/25 20:00
Guaifenesin [Mucinex] 600 mg PO Q12
Metoprolol [Lopressor] 12.5 mg PO BID
06/08/25 20:47
Legionella Urinary Antigen Routine
KIMBERLY Source: Urine
Specimen Description:
Strep pneumoniae Antigen Routine
KIMBERLY Source: Urine
Specimen Description:
06/08/25 22:00
Losartan [Cozaar] 50 mg PO HS
06/09/25 06:00
Basic Metabolic Panel IN AM
Complete Blood Count/No Diff IN AM
06/09/25 08:00
Azithromycin [Zithromax] 500 mg PO DAILY
06/09/25 16:00
CefTRIAXone [Rocephin] 1,000 mg IV Q24H
06/10/25 06:00
Basic Metabolic Panel IN AM
Complete Blood Count/No Diff IN AM
06/11/25 06:00
Basic Metabolic Panel IN AM
Complete Blood Count/No Diff IN AM
06/12/25 06:00
Basic Metabolic Panel IN AM
Complete Blood Count/No Diff IN AM
Abnormal Lab Results
06/08/25 06/08/25
12:19 13:56
WBC 15.1 H 10^3/uL
(4.8-10.8)
Abs Immat Gran (auto) 0.2 H 10^3/uL
(0-0.05)
Absolute Neuts (auto) 13.4 H 10^3/uL
(1.4-6.5)
Absolute Lymphs (auto) 1.0 L 10^3/uL
(1.2-3.4)
Immature Gran % 1.3 H %
(0-0.5)
Neutrophils % 88.4 H %
(42.2-75.2)
Lymphocytes % 6.5 L %
(20.5-51.1)
Sodium 125 L mmol/L
(135-145)
Chloride 90 L mmol/L
(98-107)
Glucose 130 H mg/dl
(70-99)
Serum Osmolality 262 L mOsm/kg
(275-300)
Total Bilirubin 1.5 H mg/dl
(0.2-1.3)
Creatine Kinase 50 L U/L
(55-170)
Urine Osmolality 169 L mOsm/kg
(300-900)
Urine Sodium 9 L mmol/L
(30-90)
06/08/25 12:19
06/08/25 12:19
Vital Signs
Initial and Last Documented VS:
Initial Vital Signs
Temp Pulse Resp BP Pulse Ox
100.7 F H 92 16 121/99 97
06/08/25 10:31 06/08/25 10:31 06/08/25 10:31 06/08/25 10:31 06/08/25 10:31
Last Documented Vital Signs
Temp Pulse Resp BP Pulse Ox
98.8 F 92 17 135/73 99
06/08/25 17:31 06/08/25 22:28 06/08/25 17:31 06/08/25 22:28 06/08/25 18:30
MDM/Problems Addressed
Differential Diagnosis Includes:
Not limited to: Medication side effect, acute dehydration, electrolyte abnormality, intracerebral hemorrhage,
MDM/Problems Addressed:
59-year-old male presenting with generalized weakness and confusion in setting up really initiated chemotherapy for lung CA. Patient febrile on arrival otherwise stable vital signs. On exam � patient alert and oriented. He does seem mildly confused
although no focal neurologic deficits noted. Abdomen benign. Lungs clear. No meningeal signs.
Differential broad. Symptoms possibly related to medication side effect from new chemotherapy or underlying infectious process. Other considerations would include dehydration secondary to diarrhea/G.I. losses. ED plan: check labs, cultures, head CT,
chest x-ray, UA and reassess. Will give IV fluids. Will hold any further sedating medications.
Update: labs reviewed. Leukocytosis of 15.1 with left shift. Chemistry reveals acute hyponatremia with sodium of 125. Lactic normal. Chest x-ray and head CT without acute findings. Urine does not appear infected.
Patients mentation appears improved following IV fluids. Symptoms possibly secondary to dehydration/hyponatremia or medication side effect. Underlying infectious process is a consideration however no identifiable cause in ED. Will hold antibiotics
at this time pending blood cultures.
However, patient will require admission to the hospital for further monitoring and fluid resuscitation. Patient accepted to hospitalist service in stable condition. Nephrology aware.
Chronic conditions affecting care:
Lung CA on chemotherapy
Acute Exacerbation and/or Progression of Chronic Illness:
N/A
*Radiology
Radiology exam reviewed: radiology read reviewed
*Pulse Oximetry
SaO2: 97
Oxygen Mode of Delivery: Room air
Patient hypoxic: no
*EKG
Interpreted by ED Provider?: Yes
EKG Intrepretation Date: 06/08/25
Interpretation: normal
Comparison EKG: no changes
Heart Rate: 82
Rate: normal
Rhythm: sinus
Interval: normal QT interval
QRS Pattern: normal QRS
Ischemia: no ischemia
*Sql Report Writer Interpretation
Rate: normal
Interpretation: normal
Heart Rate: 94
Rhythm: sinus
*Critical Care Note
Total Time (30-74mins, 75-104mins- exclusive of procedures): Not Applicable
Data Reviewed
Review of Other/Old Records Reveals: Radiology Studies (Operative note 04/15/2025 left upper lobectomy and lymph node dissection)
Source: previous radiology exam
Patient Management
Discussion with other providers: Hospitalist
Escalation/DeEscalation of care consider admission/obs:
Admit indicated
ED Attending Note
-
Portions of this chart may have been created with voice recognition software.� Occasional wrong word or��sound alike� substitutions may have occurred due to the inherent limitations of voice recognition software.
Discharge Plan
Departure
Patient Disposition: Admit
Date of Disposition: 06/08/25
Time of Disposition: 14:38
Presentation/result/management discussed w/ accepting MD/DO: Hospitalist
Discharge Problem:
Generalized weakness, Acute hyponatremia
Interventions
Interventions:
*Risk Screen - Suicide Last Done: 06/08/25 10:33
*General Assessment Last Done: 06/08/25 16:49
*Neglect/Abuse Screening Last Done: 06/08/25 10:33
*ED- Fall Risk Assessment Last Done: 06/08/25 16:49
*ED COVID-19 Vaccine History Last Done: 06/08/25 16:49
*Nursing Disposition Last Done: 06/08/25 17:15
ED- Cardiac Assessment Last Done: 06/08/25 16:22
ED- Neurological Assessment Last Done: 06/08/25 12:24
ED- Pulmonary Assessment Last Done: 06/08/25 16:23
Discharge Date and Time
Discharge Date/Time: 06/08/25 17:16
[2025-06-08] MEDS: TYLENOL 650 MG PO (12:12)
[2025-06-08] MEDS: NSS 1000 IV ×2 (12:21→17:44)
[2025-06-08 12:40] LABS: Hematocrit 46.3 % (39.0-52.0); Hemoglobin 15.7 g/dL (13.0-18.0); Mean Corp Hgb Conc. 33.9 g/dL (33.0-37.0); Mean Corpuscular Volume 86.2 fL (80.0-94.0); Nucleated Red Blood Cells % 0 % (-); Platelet Count 339 10^3/uL (130-400); Red Cell Dist. Width 14.1 % (11.5-14.5)
[2025-06-08 12:55] LABS: ALT (SGPT) 31 U/L (0-50); AST (SGOT) 20 U/L (17-59); Albumin 4.3 g/dl (3.5-5.0); Alkaline Phosphatase 53 U/L (38-126); Blood Urea Nitrogen 17 mg/dl (9-20); Calcium 8.4 mg/dl (8.4-10.2); Carbon Dioxide 26 mmol/L (22-30); Chloride 90 mmol/L (98-107); Estimated Creatinine Clearance 93 ml/min; Glucose 130 mg/dl (70-99); Potassium 3.8 mmol/L (3.5-5.1); Sodium 125 mmol/L (135-145); Total Protein 7.3 g/dl (6.3-8.2); eGFR > 60.00
[2025-06-08 12:58] LABS: COVID-19 Antigen Negative (Negative)
[2025-06-08 14:12] LABS: Urine Character Clear (Clear)
--- NOTE | 2025-06-08 14:49 | HPS.HSE ---
Family Physician
-
Family Physician: Douglas Osorio
Chief Complaint
-
confusion, weakness, diarrhea,fever
History of Present Illness
59-year-old male with history lung cancer status post recent lobectomy on chemotherapy, hypertension, hyperlipidemia who presents to the emergency department for evaluation of generalized weakness and confusion since yesterday. he had a temp 100.4
yesterday. he had a fall in the shower yesterday and he was incontinence of diarrhea yesterday. since then he had diarrhea three times. he passed out when he fell yesterday. he was having trouble getting up from the floor yesterday. he complained of
mid sternum chest pain.he complained of sob and having productive cough. his abdomen is upset when taking medication. stated nauseous and denied vomit. denied dysuria or hematuria.
Patient recently diagnosed with lung CA, underwent left sided lobectomy on 04/15/2025, and had first dose of chemotherapy on Sunday, 3 days ago.
He was noted hyponatremic, concern for pneumonia. Ordered IV ceftriaxone and azithromycin. Admitting for further management
Medical History
Past Medical History
Past Medical History: Reports Other
Additional Past Medical History:
Lumbar radiculopathy
Cervical radiculopathy
Osteoarthritis
Emphysema
Hypertension
Palpitation
Bipolar
Lung cancer
Chronic bronchitis
Past Surgical History: Reports Other
Additional Past Surgical History:
Torn meniscus right knee
Left hand surgery
Carpal tunnel release
Left upper lobectomy, radical lymph node dissection
Social History
Tobacco: Former Smoker
Alcohol: None
Drug: None
Personal: Single
Living: Alone
Family History
Family History: Not pertinent
Allergies / Home Medications
Allergies reflects when Allergies were last updated in [employer].
Home Medications with original date entered in [employer]
Allergy/Medication List:
Allergies
Allergy/AdvReac Type Severity Reaction Status Date / Time
No Known Allergies Allergy Verified 06/08/25 10:34
Home Medications
aspirin 81 mg tablet,delayed release 81 mg PO HS Blood Clot Prevention/Tx 02/11/25
bupropion HCl 150 mg tablet,12 hr sustained-release (Wellbutrin SR) 150 mg PO BID Mental Health/Anxiety 02/11/25
losartan 50 mg tablet 50 mg PO HS Blood Pressure 02/11/25
minoxidil 5 % topical foam (Rogaine) 1 ea topical DAILY HAIR GROWTH 02/11/25
uloljhizecdd-alefatzi-lwnlrm tablet 1 tab PO DAILY Supplement 02/11/25
umeclidinium 62.5 mcg-vilanterol 25 mcg/actuation powdr for inhalation (Anoro Ellipta) 1 inh inhalation DAILY Lung/Breathing Issues 02/11/25
acetaminophen 325 mg tablet 650 mg (2 x 325 mg) PO Q6HPRN PRN mild pain,headache,temp >101F #0 tabs 04/17/25
cyclobenzaprine 10 mg tablet 5 mg (1/2 x 10 mg) PO Q8HPRN PRN muscle spasm #10 tabs 04/17/25
lidocaine 4 % topical patch 1 patch topical DAILY #0 ea 04/17/25
metoprolol tartrate 25 mg tablet 12.5 mg (1/2 x 25 mg) PO BID Heart Rate Control #30 tabs 04/17/25
oxycodone 5 mg tablet 2.5 mg (1/2 x 5 mg) PO Q6HPRN PRN mild pain #14 tabs 04/17/25
Review of Systems
-
Constitutional: Reports Fever, Fatigue and Chills
EENT: Reports No Symptoms
Respiratory: Reports No Symptoms
Cardiac: Reports No Symptoms
Abdomen/GI: Reports Abdominal Pain, Nausea and Diarrhea
: Reports No Symptoms
Musculoskeletal: Reports No Symptoms
Skin: Reports No Symptoms
Neurological: Reports Weakness
Endocrine: Reports No Symptoms
Hematologic/Lymphatic: Reports No Symptoms
Psych: Reports No Symptoms
Physical Exam
Vital Signs
Vital Signs
Temp Pulse Resp BP Pulse Ox
99.2 F 74 21 108/56 97
06/08/25 13:00 06/08/25 13:00 06/08/25 13:00 06/08/25 13:00 06/08/25 13:00
Physical Exam
General: Well Developed, Well Nourished and No Apparent Distress
HEENT: NormoCephalic, Moist mucous membranes and Atraumatic
Respiratory: Clear
Cardiac: S1/S2 and Regular Rhythm; No Murmur or Rub
GI: Soft, Non Tender, Non Distended and Normal Bowel Sounds; No Organomegaly
Rectal: Deferred by Provider
Musculoskeletal: No Clubbing, No Cyanosis and No Edema
Skin: No Rash
Neuro: AO x 3 and Nonfocal/grossly intact
Psych: Calm
Laboratory Results
-
06/08/25 12:19
06/08/25 12:19
Laboratory Results
Lactic Acid 1.5 mmol/L (0.7-2.0) 06/08/25 12:19
Total Bilirubin 1.5 mg/dl (0.2-1.3) H 06/08/25 12:19
AST 20 U/L (17-59) 06/08/25 12:19
ALT 31 U/L (0-50) 06/08/25 12:19
Alkaline Phosphatase 53 U/L (38-126) 06/08/25 12:19
Data Reviewed
-
Diagnostic Radiology: Report Reviewed by me
Lab Data: Labs Reviewed by me
Impression/Plan
-
# Metabolic encephalopathy/acute hypoxia likely secondary to pneumonia
# Sepsis as evidenced by hypotension, tach, tachypnea, leukocytosis
-Head CT with no evidence of acute intracranial abnormality
- IV ceftriaxone and azithromycin
- Obtain sputum
- Obtain urine Legionella, strep pneumonia
- Tylenol as needed for fever
- Chest x-ray with impression Status post left upper lobectomy with postsurgical changes.The lungs appear slightly hypoinflated but clear. No evidence for pulmonary edema or pleural effusion.
- Blood culture sent from ER
- Continue supplemental oxygen to keep negative to 95, wean as tolerated
-covid flu negative.
# Generalized weakness secondary to pneumonia
- PT/OT consulted
#-Acute hyponatremia likely hypovolemic
- Sodium 125
-Urine osmolality, serum osmolality, urine sodium's ordered in ER
-Fluids continue
-BMP in a.m.
-Nephrology consulted
# Recent lung cancer with last chemo on Sunday
- [facility]
# Nausea diarrhea likely from pneumonia
- Obtain stool cultures
- Clear liquid diet, advance as tolerated
# Essential hypertension
- Metoprolol and losartan continue with hold parameter
# DVT prophylaxis
- Lovenox subcu
# CODE STATUS
- Full code
--- NOTE | 2025-06-08 15:24 | W.PN.UPDATE ---
Update Note
Progress Note Update
This is an addendum to H&P written by Karlee Stanton on 06/08/2025. �Patient seen and examined independently with [employer].
59-year-old male past medical history of lung cancer status post lobectomy on 04/15 on chemotherapy started 3 days ago, history of peptic ulcer, hypertension, hyperlipidemia, presenting for generalized weakness and confusion. �Had a fall. Ongoing
abdominal pain, nausea, diarrhea, cough and shortness of breath.
Vital signs show temperature 100.7. Hypoxic requiring 3 L oxygen
Labs show leukocytosis. �Sodium 125.
CT head shows no acute abnormality. �Chest x-ray shows postlumpectomy changes.
This is an immunocompromise patient with sepsis secondary to gastroenteritis/with hypoxemia secondary to strongly suspected pneumonia. Hyponatremia secondary to GI losses and decreased p.o. intake.
Blood cultures pending. Check stool studies. Pneumonia workup with sputum culture, strep, Legionella, MRSA. IV fluids. Ceftriaxone/azithromycin.
--- NOTE | 2025-06-08 15:35 | W.CON.NEPH ---
Consultation
-
Date/Time Consultation Requested: 06/08/251529
Date/Time Consultation Performed: 06/08/251529
Requesting Provider: Pelon Ruvalcaba
Performing Provider: Radha Cosme
Reason for Consultation: hyponatremia
Medical History
-
Chief Complaint: weakness, fever, confusion
History of Present Illness:
59-year-old male with history lung cancer status post recent lobectomy in April 15, just started on chemotherapy on 06/05, hypertension on Losartan, BB, hyperlipidemia, h/o PUD who presents to the emergency department for evaluation of generalized
weakness and confusion.Patient has fast chemotherapy with cisplatin combo chemo on Tuesday 06/05. On way home he felt weak and possible mild confusion. Since home he continued to have confusion and also was nauseous. His food intake was poor
however was drinking liquids. He had fever of 100.4 yesterday. He had a fall in the shower yesterday and he was incontinence of diarrhea, does not know if he passed out. since then he had diarrhea three times. he had hard time to getting up from
the floor yesterday. he complained of sob and having productive cough. his abdomen is upset when taking medication. denied dysuria or hematuria.
His blood pressures were soft and admission received 1 L of normal saline. He feels better now however not back to his baseline. He is also on 4 L of nasal cannula. No active chest pain or lower extremity edema.
He was noted hyponatremic 125 hence nephrology consulted. no previous h/o hyponatremia noted. With concern of pneumonia started on abx.
Past Medical History
Lumbar radiculopathy
Cervical radiculopathy
Osteoarthritis
Emphysema
Hypertension
Palpitation
Bipolar
Lung cancer
Chronic bronchitis
Past Surgical History: Other (Torn meniscus right knee Left hand surgery Carpal tunnel release Left upper lobectomy, radical lymph node dissection)
Social History
Tobacco: Former Smoker
Alcohol: Former
Drug: None
Personal: Single
Employment: Disabled
Family History
Family History: Not Pertinent
Allergies / Home Medications
Allergy/AdvReac Type Severity Reaction Status Date / Time
No Known Allergies Allergy Verified 06/08/25 10:34
�Medication �Instructions �Recorded �Confirmed �Type
losartan 50 mg tablet 50 mg PO HS Blood Pressure 02/11/25 06/08/25 History
metoprolol tartrate 25 mg tablet 12.5 mg (1/2 x 25 mg) PO BID Heart 04/17/25 06/08/25 Rx
Rate Control #30 tabs
oxycodone 5 mg tablet 2.5 mg (1/2 x 5 mg) PO Q6HPRN PRN 04/17/25 Rx
mild pain #14 tabs
Review of Systems
-
All other systems: Negative unless noted
Physical Exam
Vital Signs
Vital Signs
Temp Pulse Resp BP Pulse Ox
99.2 F 74 21 108/56 97
06/08/25 13:00 06/08/25 13:00 06/08/25 13:00 06/08/25 13:00 06/08/25 13:00
Lab Results
WBC 15.1 10^3/uL (4.8-10.8) H 06/08/25 12:19
RBC 5.37 10^6/uL (4.70-6.10) 06/08/25 12:19
Hgb 15.7 g/dL (13.0-18.0) 06/08/25 12:19
Hct 46.3 % (39.0-52.0) 06/08/25 12:19
Plt Count 339 10^3/uL (130-400) 06/08/25 12:19
Sodium 125 mmol/L (135-145) L 06/08/25 12:19
Potassium 3.8 mmol/L (3.5-5.1) 06/08/25 12:19
Chloride 90 mmol/L (98-107) L 06/08/25 12:19
Carbon Dioxide 26 mmol/L (22-30) 06/08/25 12:19
BUN 17 mg/dl (9-20) 06/08/25 12:19
Creatinine 0.9 mg/dL (0.7-1.3) 06/08/25 12:19
eGFR > 60.00 06/08/25 12:19
Glucose 130 mg/dl (70-99) H 06/08/25 12:19
Calcium 8.4 mg/dl (8.4-10.2) 06/08/25 12:19
Albumin 4.3 g/dl (3.5-5.0) 06/08/25 12:19
Physical Exam
General: Awake, Alert, Oriented, AOx3, No Distress and Nontoxic
HEENT: EOMI, Anicteric, Dentition Intact, Facial Symmetry and No JVD
Respiratory: Clear, Normal Excursion and Nonlabored Respirations
Cardiac: S1/S2 and Regular Rate/Rhythm
Breast: Deferred by me
Abdomen: Soft, Nontender and Nondistended
Musculoskeletal: No Cyanosis and No Edema
Skin: No Rash
Neuro: Nonfocal/Grossly Intact
Psych: Appropriate
Data Reviewed
-
CT Scan: Report Reviewed by me, Discussed with Patient and Discussed with Family
Labs: Labs Reviewed by me, Discussed with Patient and Discussed with Family
Assessment/Plan
-
IMP:
Metabolic encephalopathy/acute hypoxia likely secondary to pneumonia
Sepsis as evidenced
Generalized weakness secondary to pneumonia
n/diarrhea pot chemo
Hyponatremia likely hypovolemic
Recent lung cancer with last chemo on 06/05
Essential hypertension
HLD
chr bronchitis
plan:
A/w gen weakness and confusion
Hyponatremia-possible hypovolemia
agree with isotonic fluids and recheck labs later today
await urine studies, urine seem dilute
has no hyponatremia before
maintain FR if U osmo and encourage solute intake
abx per primary
hold ARB for soft BPs
d/w pt and sister at bedside
[2025-06-08] MEDS: ZITHROMAX 500 MG PO (16:11)
[2025-06-08] MEDS: STERILE WATER FOR INJECTION 10 ML IV (16:12)
[2025-06-08] MEDS: ROCEPHIN 1000 MG IV (16:12)
[2025-06-08] MEDS: LOVENOX 40 MG SC (17:43)
[2025-06-08] MEDS: MUCINEX 600 MG PO (20:25)
[2025-06-08] MEDS: LOPRESSOR 12.5 MG PO (20:27)
[2025-06-08] MEDS: TUMS CHEWABLE TABLET 200 MG PO (21:21)
[2025-06-08 21:49] LABS: Blood Urea Nitrogen 17 mg/dl (9-20); Calcium 8.6 mg/dl (8.4-10.2); Carbon Dioxide 26 mmol/L (22-30); Chloride 93 mmol/L (98-107); Estimated Creatinine Clearance 87 ml/min; Glucose 138 mg/dl (70-99); Potassium 4.2 mmol/L (3.5-5.1); Sodium 125 mmol/L (135-145); eGFR > 60.00
[2025-06-08] MEDS: COZAAR 50 MG PO (22:28)
[2025-06-08] MEDS: MELATONIN 5 MG PO (23:07)
[2025-06-09] MEDS: NSS 1000 IV ×2 (01:10→13:02)
[2025-06-09 06:12] LABS: Hematocrit 42.2 % (39.0-52.0); Hemoglobin 14.7 g/dL (13.0-18.0); Mean Corp Hgb Conc. 34.8 g/dL (33.0-37.0); Mean Corpuscular Volume 84.2 fL (80.0-94.0); Platelet Count 241 10^3/uL (130-400); Red Cell Dist. Width 14.0 % (11.5-14.5)
[2025-06-09 06:44] LABS: Blood Urea Nitrogen 16 mg/dl (9-20); Calcium 8.5 mg/dl (8.4-10.2); Carbon Dioxide 25 mmol/L (22-30); Chloride 90 mmol/L (98-107); Estimated Creatinine Clearance 87 ml/min; Glucose 160 mg/dl (70-99); Potassium 3.7 mmol/L (3.5-5.1); Sodium 125 mmol/L (135-145); eGFR > 60.00
[2025-06-09 07:00] VITALS: BP 137/83
[2025-06-09] MEDS: MUCINEX 600 MG PO ×2 (09:11→19:40)
[2025-06-09] MEDS: ZITHROMAX 500 MG PO (09:11)
[2025-06-09] MEDS: LOPRESSOR 12.5 MG PO ×2 (09:11→19:40)
[2025-06-09] MEDS: TYLENOL 650 MG PO (09:18)
[2025-06-09] MEDS: TUMS CHEWABLE TABLET 200 MG PO (09:18)
[2025-06-09 10:36] VITALS: BP 103/66; BP 91/65; PULSE 78; O2SAT 97
--- NOTE | 2025-06-09 14:31 | W.PN.NEPH.PH ---
Today's Communication / Plan
-
IVF
Assessment/Plan
-
IMP:
Metabolic encephalopathy/acute hypoxia likely secondary to pneumonia
Sepsis as evidenced
Generalized weakness secondary to pneumonia
n/diarrhea pot chemo
Hyponatremia likely hypovolemic
Recent lung cancer with last chemo on 06/05
Essential hypertension
HLD
chr bronchitis
Plan:
still most likely hypovolemia hyponatremia.
continue IVF NSS
follow BMP
-
-
Date of Service: June 09, 2025
CC / HPI / ROS
-
Chief Complaint:
hyponatremia
History of Present Illness:
Na stable 125
BP stable
breathing better
Review of Systems:
no CP/SOB
Labs
-
Labs:
WBC 12.2 10^3/uL (4.8-10.8) H 06/09/25 05:36
RBC 5.01 10^6/uL (4.70-6.10) 06/09/25 05:36
Hgb 14.7 g/dL (13.0-18.0) 06/09/25 05:36
Hct 42.2 % (39.0-52.0) 06/09/25 05:36
Plt Count 241 10^3/uL (130-400) D 06/09/25 05:36
Sodium 125 mmol/L (135-145) L 06/09/25 05:36
Potassium 3.7 mmol/L (3.5-5.1) 06/09/25 05:36
Chloride 90 mmol/L (98-107) L 06/09/25 05:36
Carbon Dioxide 25 mmol/L (22-30) 06/09/25 05:36
BUN 16 mg/dl (9-20) 06/09/25 05:36
Creatinine 0.9 mg/dL (0.7-1.3) 06/09/25 05:36
eGFR > 60.00 06/09/25 05:36
Glucose 160 mg/dl (70-99) H 06/09/25 05:36
Calcium 8.5 mg/dl (8.4-10.2) 06/09/25 05:36
Albumin 4.3 g/dl (3.5-5.0) 06/08/25 12:19
Physical Exam
-
Vital Signs:
Vital Signs
Temp Pulse Resp BP Pulse Ox
98.1 F 95 18 137/83 98
06/09/25 07:00 06/09/25 09:11 06/09/25 07:00 06/09/25 09:11 06/09/25 12:28
Cardiovascular:: Regular rate and rhythm
Respiratory:: Bilateral: Coarse
Lung Excursion:: Normal
Abdomen:: Nontender and Soft
Bowel Sounds:: Normal
Extremity Edema:: None: Bilateral:
--- NOTE | 2025-06-09 14:32 | W.PN.HOSP.TC ---
Addendum entered and electronically signed by Jessica Cruz MD 06/09/25 20:54:
I saw and evaluated the patient independently. I reviewed the resident�s note and agree with findings and plan as documented by Dr. Mendoza.
GENERAL: well developed, well nourished, male in no apparent distress--mental status seems mostly back to normal but not 100% per sister at bedside
HEENT: NC/AT--O2 was off and on the floor
HEART: regular rate and rhythm, +S1, +S2
LUNGS : rhonchi bilaterally
ABDOM: soft, nontender, nondistended, + bowel sounds
EXT: no cyanosis, clubbing, or edema
NEUROLOGIC: grossly intact
sepsis (POA) with Metabolic encephalopathy--likely due to acute hypoxia likely secondary to pneumonia--wean O2 to off--cont rocephin/zithromax--consult onc since pt with recent lobectomy and started chemo--follow cultures--holding losartan for now
Generalized weakness secondary to pneumonia-- Physical therapy has been consulted
Hyponatremia--likely volume depletion as cause--apprec renal--cont IVF--follow BMP--check stool cultures
Lung cancer--s/p recent lobectomy--started on chemo- [facility], will [facility]
Diarrhea-- Obtain stool culture, full liquid diet
Essential Hypertension--Metoprolol and losartan to be continued based on blood pressure
DVT proph--subcutaneous Lovenox
code status--Full code
Original Note:
Today's Communication/Plan
-
Full liquid diet.
Continue isotonic fluids.
Will consult [facility] since patient is on chemotherapy for lung cancer.
Will follow blood pressure and hold off losartan temporarily.
Repeat labs tomorrow.
Assessment / Plan
Assessment / Plan
59-year-old male with a history of lung cancer status post recent lobectomy and chemotherapy, hypertension, hyperlipidemia who presents with generalized weakness and confusion for the past few days. Patient had lobectomy performed on 04/15/2025, and
received his first dose of chemotherapy on Sunday (06/05/2025). Since receiving his first chemotherapy, patient has had fatigue, nausea, > 10 episodes of diarrhea per day. Patient also has shortness of breath and a productive cough. He denies
vomiting, dysuria or hematuria. Patient did not take nausea medications after chemotherapy and thinks that may be the cause of why his symptoms progressed. He has dyslexia and has trouble reading medication names, which may have contributed to
this. At the time of admission patient had hyponatremia (Na 125) with concerns of pneumonia. Hypotensive, tachycardic, tachypneic with leukocytosis on CBC, meeting criteria for sepsis.
Assessment/plan:
# Metabolic encephalopathy, acute hypoxia likely secondary to pneumonia
# Sepsis
-Mentation was improved with IV fluids in the ED
-Continue IV ceftriaxone and azithromycin, blood cultures sent. Waiting for sputum culture, Legionella, strep, MRSA
-Continue supplemental oxygen as needed.
-Tylenol for fever as needed
-Holding losartan due to low BP
# Generalized weakness secondary to pneumonia
- Physical therapy has been consulted
# Hyponatremia
- Nephrology Dr. Juarez on 06/08/25: Hyponatremia is possibly hypovolemia due to recurrent episodes of diarrhea.
- Continue isotonic fluids and monitor labs.
# Lung cancer
- [facility], will [facility]
# Diarrhea
- Obtain stool culture, full liquid diet
# Hypertension
- Metoprolol and losartan to be continued based on blood pressure
DVT prophylaxis subcutaneous Lovenox
Full code
Anticipated Discharge: > 48 hours
Subjective/Interval History
-
Date of Service: June 09, 2025
59-year-old male with a history of lung cancer status post recent lobectomy and chemotherapy, hypertension, hyperlipidemia who presents with generalized weakness and confusion for the past few days. Patient had lobectomy performed on 04/15/2025, and
received his first dose of chemotherapy on Sunday (06/05/2025). Since receiving his first chemotherapy, patient has had fatigue, nausea, > 10 episodes of diarrhea per day. Patient also has shortness of breath and a productive cough. He denies
vomiting, dysuria or hematuria. Patient states he feels slightly better compared to yesterday, but is still having nausea and diarrhea every hour. Trying to wean off of 3 L of oxygen. CBC showed WBC 12.2, decreased from 15 from yesterday. BMP
shows sodium 125 which is the same as yesterday.
Objective Data
-
Labs:
Laboratory Results
06/09/25
05:36
WBC 12.2 H
Hgb 14.7
Hct 42.2
Plt Count 241 D
Sodium 125 L
Potassium 3.7
Chloride 90 L
Carbon Dioxide 25
BUN 16
Creatinine 0.9
Glucose 160 H
Calcium 8.5
Vital Signs:
Vital Signs
Temp Pulse Resp BP Pulse Ox
98.1 F 95 18 137/83 98
06/09/25 07:00 06/09/25 09:11 06/09/25 07:00 06/09/25 09:11 06/09/25 12:28
I&O
06/08/25 06/09/25 06/10/25
06:59 06:59 06:59
Intake Total 1300 / 1300
Output Total 650 / 650 1905 / 1905
Balance -650 / -650 -605 / -605
Review of Systems
-
History Source: Patient
All other systems: Reviewed and negative
Constitutional: Reports No Symptoms
EENT: Reports No Symptoms Reported
Respiratory: Reports Cough
Cardiac: Reports No Symptoms
Abdomen/GI: Reports Nausea and Diarrhea
Breast: Reports No Symptoms
Genitourinary: Reports No Symptoms
Musculoskeletal: Reports No Symptoms
Skin: Reports No Symptoms
Neuro: Reports No Symptoms
Endocrine: Reports No Symptoms
Hematologic / Lymphatic: Reports No Symptoms
Allergy / Immunology: Reports No Symptoms
Physical Exam
-
General: No Apparent Distress and Comfortable
HEENT: Normocephalic, Atraumatic and Moist Mucous Membranes
Respiratory: Clear to Auscultation
Cardiac: Regular Rhythm and S1/S2
Breast: Deferred by me
GI: Soft, Nontender, Nondistended and Normal Bowel Sounds
Rectal: Deferred by Provider
Genito-urinary: No Costovertebral Tender
Musculoskeletal: No Clubbing, No Cyanosis and No Edema
Skin: Warm and Dry
Neuro: AO x 3 and Nonfocal/Grossly Intact
Hematologic / Lymphatic: No Lymphadenopathy
Psych: Calm
Data Reviewed
-
Diagnostic Radiology: Report Reviewed by me and Discussed with Physician
Labs: Labs Reviewed by me and Discussed with Physician
Old Records: Reviewed
[2025-06-09 15:10] VITALS: BP 101/66
--- NOTE | 2025-06-09 15:54 | PTCARENOTE ---
Pt forgetful, BENITES and complaining of nausea. MD and resident made aware, jes roberts provided, see MAR.
[2025-06-09] MEDS: ROCEPHIN 1000 MG IV (15:58)
[2025-06-09] MEDS: ZOFRAN 4 MG PO (15:58)
[2025-06-09] MEDS: STERILE WATER FOR INJECTION 10 ML IV (15:58)
[2025-06-09] MEDS: FLUSH (NSS) 2 FLUSH IV (15:59)
--- NOTE | 2025-06-09 17:03 | CM ---
Patient seen at bedside with physicians on . Patient stated that he lives alone in a 2 story home with no VN and no home O2. Patient thinks he had [facility] in the past. Patient PCP is Dr. Cho and his sister Chitra is his point person
and he is intrested in giving her a poa. CM will provide forms tomorrow. Patient wish is to go home with no needs pending physician assessments. CM will continue to follow for discharge planning needs
Plan; home with VN; watch for therapy assessments/ medical treatment plan
[2025-06-09] MEDS: LOVENOX 40 MG SC (18:10)
[2025-06-09] MEDS: MELATONIN 5 MG PO (22:58)
[2025-06-09] MEDS: COZAAR 50 MG PO (22:58)
[2025-06-09 23:08] VITALS: BP 133/76
[2025-06-10] MEDS: NSS IV ×2 (06:01→10:43)
[2025-06-10] MEDS: NSS 1000 IV (06:02)
[2025-06-10 06:29] LABS: Hematocrit 38.5 % (39.0-52.0); Hemoglobin 13.4 g/dL (13.0-18.0); Mean Corp Hgb Conc. 34.8 g/dL (33.0-37.0); Mean Corpuscular Volume 82.8 fL (80.0-94.0); Platelet Count 232 10^3/uL (130-400); Red Cell Dist. Width 13.5 % (11.5-14.5)
[2025-06-10 06:52] LABS: Blood Urea Nitrogen 19 mg/dl (9-20); Calcium 8.1 mg/dl (8.4-10.2); Carbon Dioxide 28 mmol/L (22-30); Chloride 88 mmol/L (98-107); Estimated Creatinine Clearance 87 ml/min; Glucose 156 mg/dl (70-99); Magnesium 1.9 mg/dl (1.6-2.3); Potassium 3.3 mmol/L (3.5-5.1); Sodium 122 mmol/L (135-145); eGFR > 60.00
[2025-06-10 07:00] VITALS: BP 103/57
[2025-06-10] MEDS: TYLENOL 650 MG PO ×2 (08:30→15:38)
[2025-06-10] MEDS: TUMS CHEWABLE TABLET 200 MG PO ×2 (08:30→15:38)
[2025-06-10] MEDS: LOPRESSOR 12.5 MG PO ×2 (08:30→21:19)
[2025-06-10] MEDS: MUCINEX 600 MG PO ×2 (08:31→21:13)
[2025-06-10] MEDS: ZOFRAN 4 MG PO ×2 (08:31→17:22)
[2025-06-10] MEDS: ZITHROMAX 500 MG PO (08:31)
--- NOTE | 2025-06-10 08:50 | CON.ONC ---
Consultation
-
Date Consultation Requested: 06/09/25
Date Consultation Performed: 06/10/25
Requesting Provider: CHRISTOPHER
Performing Provider: Nancy
Reason for Consultation: Lung Ca on chemotherapy
Impression
Impression
POA pneumonia (?) without neutropenia
Metabolic encephalopathy
Generalized weakness
Hyponatremia
Stage IIb NSCLCa
Plan
Plan
Continue supportive care. Empiric treatment with antibiotics. Blood counts are adequate. No evidence of neutropenia. He did not receive G-CSF as part of his treatments to monitor his white blood count. His diagnosis is pneumonia with sepsis
although his chest x-ray is relatively clear send for now we will continue treatment and supportive care and monitor his status. Nephrology is following him for hyponatremia and feels it is related to dehydration (hypovolemic).
Patient History
History of Present Illness
CC: weakness, fever, confusion
HPI:
59-year-old male with stage IIb lung cancer status post lobectomy 04/15, just started adjuvant cisplatin + Alimta chemotherapy on 06/05 presents to the emergency department for evaluation of generalized weakness and confusion. Post chemotherapy he felt
weak and was confused. He had a fall in the shower and he was incontinence of diarrhea. He complained of sob and having productive cough. He was treated with IVF and started on 4 L of nasal cannula. With concern of pneumonia started on abx.
Past-Medical/Surgical History
PMH:
Lumbar radiculopathy
Cervical radiculopathy
Osteoarthritis
Emphysema
Hypertension
Palpitation
Bipolar
Lung cancer
Chronic bronchitis
PSH:
Left upper lobectomy
Torn meniscus right knee, Left hand surgery, Carpal tunnel release
Social History
Tobacco: Former Smoker
Alcohol: Former
Drug: None
Personal: Single
Employment: Disabled
Family History
Family History: Not Pertinent
Patient Medication
�Medication �Instructions �Recorded �Confirmed �Last Taken �Type
losartan 50 mg tablet 50 mg PO HS Blood Pressure 02/11/25 06/08/25 04/08/25 History
metoprolol tartrate 25 mg tablet 12.5 mg (1/2 x 25 mg) PO BID Heart 04/17/25 06/08/25 Unknown Rx
Rate Control #30 tabs
dexamethasone 4 mg tablet 4 mg PO DIRECTED 06/08/25 06/08/25 Unknown History
Anti-Inflammatory
folic acid 1 mg tablet 1 mg PO DAILY Supplement 06/08/25 06/08/25 Unknown History
ondansetron 8 mg disintegrating 8 mg PO [id number] PRN nausea 06/08/25 06/08/25 Unknown History
tablet
prochlorperazine maleate 10 mg 10 mg PO BIDPRN PRN nausea 06/08/25 06/08/25 Unknown History
tablet (Compazine)
therapeutic multivitamin 1 tab PO DAILY Supplement 06/08/25 06/08/25 Unknown History
umeclidinium 62.5 mcg-vilanterol 1 inh inhalation R DAILY 06/08/25 06/08/25 Unknown History
25 mcg/actuation powdr for Lung/Breathing Issues
inhalation (Anoro Ellipta)
Active Medications
Generic Name Dose Route Start Last Admin
Trade Name Freq PRN Reason Stop Dose Admin
Acetaminophen 650 mg 06/08/25 17:17 06/10/25 08:30
Acetaminophen 325 Mg Tablet PO 07/06/25 17:16 650 mg
Q4HPRN PRN Administration
if temp > 101 F
Azithromycin 500 mg 06/09/25 08:00 06/10/25 08:31
Azithromycin 250 Mg Tablet PO 500 mg
DAILY ERIK Administration
Calcium Carbonate 200 mg 06/08/25 20:37 06/10/25 08:30
Calcium Antacid 200 Mg (Calcium Carbonate 500 Mg) Chew Tablet PO 07/06/25 20:36 200 mg
Q6HPRN PRN Administration
indigestion
Ceftriaxone Sodium 1,000 mg 06/09/25 16:00 06/09/25 15:58
Ceftriaxone 1000 Mg / 10 Ml Vial IV 1,000 mg
Q24H ERIK Administration
Enoxaparin Sodium 40 mg 06/08/25 18:00 06/09/25 18:10
Enoxaparin Sodium 40 Mg/0.4 Ml Syringe SC 07/06/25 17:59 40 mg
QPM ERIK Administration
Guaifenesin 600 mg 06/08/25 20:00 06/10/25 08:31
Guaifenesin 600 Mg Extended Release Tablet PO 07/06/25 19:59 600 mg
Q12 ERIK Administration
Sodium Chloride 1,000 mls @ 125 mls/hr 06/10/25 01:30 06/10/25 06:02
Nss IV 1,000 mls
.Q8H ERIK Administration
Losartan Potassium 50 mg 06/08/25 22:00 06/09/25 22:58
Losartan 50 Mg Tablet PO 07/06/25 21:59 50 mg
HS ERIK Administration
Melatonin 5 mg 06/08/25 22:55 06/09/25 22:58
Melatonin 5 Mg Tablet PO 07/06/25 22:54 5 mg
HS ERIK Administration
Metoprolol Tartrate 12.5 mg 06/08/25 20:00 06/10/25 08:30
Metoprolol 12.5 Mg Regular Release Dose (1/2 Of 25 Mg Tablet) PO 07/06/25 19:59 12.5 mg
BID ERIK Administration
Ondansetron HCl 4 mg 06/09/25 15:34 06/10/25 08:31
Ondansetron 4 Mg Tablet PO 07/07/25 15:33 4 mg
Q8HPRN PRN Administration
nausea
Sodium Chloride 0 flush 06/08/25 18:00 06/09/25 15:59
Sodium Chloride 0.9% (Flush) Syringe IV 07/06/25 17:59 2 flush
PER PROTOCOL ERIK Administration
Sterile Water 10 ml 06/09/25 16:00 06/09/25 15:58
Sterile Water For Injection 10 Ml Vial IV 07/07/25 15:59 10 ml
Q24H ERIK Administration
Physical Exam
-
General: Well Nourished, No Apparent Distress and Comfortable
HEENT: Negative Jaundice
Cardiology: S1 and S2
Pulmonary: Clear; Negative Wheezes or Rales
GI: Soft and Normal Bowel Sounds
Musculoskeletal: No Clubbing, No Cyanosis and No Edema
Extremities: No C/C/E
Skin: Warm
Hematologic / Lymphatic: No Lymphadenopathy and No Petechiae
Psych: Agitated (slightly)
Labs
Lab Results
WBC 8.3 10^3/uL (4.8-10.8) 06/10/25 05:44
RBC 4.65 10^6/uL (4.70-6.10) L 06/10/25 05:44
Hgb 13.4 g/dL (13.0-18.0) 06/10/25 05:44
Hct 38.5 % (39.0-52.0) L 06/10/25 05:44
MCV 82.8 fL (80.0-94.0) 06/10/25 05:44
MCH 28.8 pg (27.0-31.0) 06/10/25 05:44
MCHC 34.8 g/dL (33.0-37.0) 06/10/25 05:44
RDW 13.5 % (11.5-14.5) 06/10/25 05:44
Plt Count 232 10^3/uL (130-400) 06/10/25 05:44
MPV 9.3 fL (7.4-10.4) 06/10/25 05:44
Abs Immat Gran (auto) 0.2 10^3/uL (0-0.05) H 06/08/25 12:19
Absolute Neuts (auto) 13.4 10^3/uL (1.4-6.5) H 06/08/25 12:19
Absolute Lymphs (auto) 1.0 10^3/uL (1.2-3.4) L 06/08/25 12:19
Absolute Monos (auto) 0.6 10^3/uL (0.1-0.6) 06/08/25 12:19
Absolute Eos (auto) 0.0 10^3/uL (0-0.7) 06/08/25 12:19
Absolute Basos (auto) 0.0 10^3/uL (0-0.2) 06/08/25 12:19
Immature Gran % 1.3 % (0-0.5) H 06/08/25 12:19
Neutrophils % 88.4 % (42.2-75.2) H 06/08/25 12:19
Lymphocytes % 6.5 % (20.5-51.1) L 06/08/25 12:19
Monocytes % 3.7 % (1.7-9.3) 06/08/25 12:19
Eosinophils % 0.0 % (0-6) 06/08/25 12:19
Basophils % 0.1 % (0-2) 06/08/25 12:19
Creatinine 0.9 mg/dL (0.7-1.3) 06/10/25 05:44
Vital Signs
Vital Signs
Temp Pulse Resp BP Pulse Ox
97.7 F 82 18 103/57 98
06/10/25 07:00 06/10/25 08:30 06/10/25 07:00 06/10/25 08:30 06/10/25 07:00
[2025-06-10 10:02] LABS: Blood Urea Nitrogen 18 mg/dl (9-20); Calcium 8.5 mg/dl (8.4-10.2); Carbon Dioxide 27 mmol/L (22-30); Chloride 86 mmol/L (98-107); Estimated Creatinine Clearance 79 ml/min; Glucose 185 mg/dl (70-99); Potassium 3.2 mmol/L (3.5-5.1); Sodium 124 mmol/L (135-145); eGFR > 60.00
[2025-06-10] MEDS: SAMSCA 15 MG PO (10:43)
[2025-06-10] MEDS: ROXICODONE 5 MG PO ×2 (11:51→17:22)
--- NOTE | 2025-06-10 12:03 | W.PN.NEPH.PH ---
Today's Communication / Plan
-
Samsca
Assessment/Plan
-
IMP:
Metabolic encephalopathy/acute hypoxia likely secondary to pneumonia
Sepsis as evidenced
Generalized weakness secondary to pneumonia
n/diarrhea pot chemo
Hyponatremia likely hypovolemic
Recent lung cancer with last chemo on 06/05
Essential hypertension
HLD
chr bronchitis
Plan:
Sodium went down to 122 with normal saline responding physiologically like SIADH despite a low urine sodium
Discontinue IV fluid
Samsca given x 1 for repeat sodium of 124
follow BMP
Fluid restrict
Discussed with primary team as well as patient
-
-
Date of Service: June 10, 2025
CC / HPI / ROS
-
Chief Complaint:
hyponatremia
History of Present Illness:
Na remains low
BP stable
breathing better
Review of Systems:
no CP/SOB
Labs
-
Labs:
WBC 8.3 10^3/uL (4.8-10.8) 06/10/25 05:44
RBC 4.65 10^6/uL (4.70-6.10) L 06/10/25 05:44
Hgb 13.4 g/dL (13.0-18.0) 06/10/25 05:44
Hct 38.5 % (39.0-52.0) L 06/10/25 05:44
Plt Count 232 10^3/uL (130-400) 06/10/25 05:44
Sodium 124 mmol/L (135-145) L 06/10/25 08:35
Potassium 3.2 mmol/L (3.5-5.1) L 06/10/25 08:35
Chloride 86 mmol/L (98-107) L 06/10/25 08:35
Carbon Dioxide 27 mmol/L (22-30) 06/10/25 08:35
BUN 18 mg/dl (9-20) 06/10/25 08:35
Creatinine 1.0 mg/dL (0.7-1.3) 06/10/25 08:35
eGFR > 60.00 06/10/25 08:35
Glucose 185 mg/dl (70-99) H 06/10/25 08:35
Calcium 8.5 mg/dl (8.4-10.2) 06/10/25 08:35
Albumin 4.3 g/dl (3.5-5.0) 06/08/25 12:19
Physical Exam
-
Vital Signs:
Vital Signs
Temp Pulse Resp BP Pulse Ox
97.7 F 82 18 103/57 98
06/10/25 07:00 06/10/25 08:30 06/10/25 07:00 06/10/25 08:30 06/10/25 07:00
Cardiovascular:: Regular rate and rhythm
Respiratory:: Bilateral: Coarse
Lung Excursion:: Normal
Abdomen:: Nontender and Soft
Bowel Sounds:: Normal
Extremity Edema:: None: Bilateral:
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
[2025-06-10 15:05] VITALS: BP 108/63
[2025-06-10] MEDS: ROCEPHIN 1000 MG IV (15:35)
[2025-06-10] MEDS: STERILE WATER FOR INJECTION 10 ML IV (15:36)
[2025-06-10] MEDS: KCL 40 MEQ PO (15:36)
[2025-06-10] MEDS: FLUSH (NSS) 1 FLUSH IV (15:40)
--- NOTE | 2025-06-10 16:02 | CM ---
Patient seen at bedside on with physicians. Patient declined Psych supports and states that he is very uncomfortable today. Patient has a history of using [facility] in the past. Patient sister is supportive and involved. CM will continue to
follow for discharge planning needs.
Plan; home with VN anticipated, watch for further medical treatment plan needs.
[2025-06-10] MEDS: LOVENOX 40 MG SC (17:22)
[2025-06-10] MEDS: PROTONIX IV 40 MG IV (21:13)
[2025-06-10] MEDS: NSS (PRESERVATIVE FREE) 10 ML IV (21:14)
[2025-06-10] MEDS: MELATONIN 5 MG PO (21:19)
[2025-06-10] MEDS: COZAAR 50 MG PO (21:19)
[2025-06-10 21:30] VITALS: BP 115/79
[2025-06-10 23:24] VITALS: BP 117/70
[2025-06-11] MEDS: TUMS CHEWABLE TABLET 200 MG PO (00:47)
[2025-06-11] MEDS: REFRESH EYE DROPS (PF) 1 DROPS BOTH EYES (01:41)
[2025-06-11 06:52] LABS: Hematocrit 38.9 % (39.0-52.0); Hemoglobin 13.7 g/dL (13.0-18.0); Mean Corp Hgb Conc. 35.2 g/dL (33.0-37.0); Mean Corpuscular Volume 82.2 fL (80.0-94.0); Platelet Count 233 10^3/uL (130-400); Red Cell Dist. Width 13.2 % (11.5-14.5)
[2025-06-11 07:00] VITALS: BP 119/72
[2025-06-11 07:15] LABS: Blood Urea Nitrogen 24 mg/dl (9-20); Calcium 8.9 mg/dl (8.4-10.2); Carbon Dioxide 29 mmol/L (22-30); Chloride 86 mmol/L (98-107); Estimated Creatinine Clearance 60 ml/min; Glucose 180 mg/dl (70-99); Potassium 3.3 mmol/L (3.5-5.1); Sodium 123 mmol/L (135-145); eGFR > 60.00
--- NOTE | 2025-06-11 07:37 | CON.GI ---
Addendum entered and electronically signed by Maninder Huffman, 06/11/25 14:49:
ADDENDUM/UPDATE:
Repeat H/h continues to remain stable with Hgb 13s without any melena or other concern for overt GI bleeding. Although patient as heme (+) stools, would DEFER any plans for an endoscopic evaluation at this time given his sepsis and pneumonia along
with his stable Hgb without any signs to suggest overt GI bleeding. Favor ongoing supportive care with IV PPI and trending Hgb with daily CBC. However, if patient's clinical course were to change (ie overt melena, bloody stools, etc) would consider
pursuing an endoscopic evaluation. Ultimately, would consider an EGD/Colonoscopy as an outpatient and advise following up in the GI office. See rest of care as outlined below.
Discussed with primary internal medicine team. GI will sign-off, please re-contact with any questions or concerns.
Addendum entered and electronically signed by Maninder Huffman, 06/11/25 12:55:
I saw and examined the patient.
The [employer] WORK[employer]'s note was reviewed and I agree with the note.
Comment: Mr. Serrato is a 59 y.o male with a past medical history of HTN, HLD, emphysema, [facility] hx of HCV (s/p SVR with prior INF), and lung adenocarcinoma (s/p RATS procedure with resection 04/2025, on
chemo), where he initially presented to the ED on 06/08 with weakness, fevers of 100.4 and a mechanical fall. Found to have sepsis secondary to pneumonia and has been treated with IV antibiotics. Course complicated by concern for darker stools found
to have heme (+) stool early this AM. He denies any dark black or overtly bloody stools, although does note intermittent reflux as well as dyspepsia. Denies any known significant NSAIDs, however was previously on Dexamethasone. No other
antiplatelets or anticoagulants. Labs this AM with normal Hgb with 13.4 -> 13.7 this AM. Previously Hgb 15-14s, but suspect some degree of hemoconcentration as all cell-lines decreased. Further, BUN also normal and further reassuring. There was also
some concern about coughing up blood but he denies any hematemesis or coffee ground emesis. Clinically, patient is not having an overt GI bleed and given his recent sepsis and immunocompromise from chemo I would defer any plans for an endoscopic
evaluation at this time. Favor obtaining a repeat CBC this afternoon along with continuing empiric IV PPI BiD given concern for possible PUD given prior steroids but again doubt brisk UGIB. If repeat H/h is reassuring, would manage conservatively
and can discuss an eventual repeat endoscopic evaluation as outpatient. If patient's clinical course were to change (ie develop melena, maroon colored stools, significant drop in H/h, etc), would consider pursuing an EGD this admission. Agree with
rest of care as outlined below.
Thank you for allowing me to participate in the care of this patient. Please do not hesitate to call for any further questions.
Original Note:
Consultation
-
Date/Time Consultation Requested: 06/11/25599
Date/Time Consultation Performed: 06/11/25729
Requesting Provider: Main Mendoza MD
Performing Provider: CATHI Mohan, Maninder Huffman,
Reason for Consultation: hematemesis, black stools
Medical History
Chief Complaint / HPI
Chief Complaint: black stools, hematemesis
History of Present Illness:
Pt is a 59yo with hx PUD(distant history while in school -- did not recall scope), HTN, hyperlipidemia, asthma, bronchitis, emphysema, tobacco abuse, adeno lung with recent RATS procedure with resection in 04/2025 on chemo(cisplatin + Alimta),
bipolar, hep C (prior interferon therapy early ), substance abuse years ago, presents 06/08 with weakness, fever 100.4 and fall. he also reported diarrhea. On admission concern for PNA with hypoxemia with sepsis, hyponatremia. Pt was noted
with black stool during admission and reports recent black stools and also bringing up blood while in the shower.
In review with patient noted he admits to increased GERD with tums use. He did bring up some blood with mucous this am. Was unsure if from stomach or lungs. He also admit to abdominal pain. Pain is similar to when he though he had a ulcer
years ago. He did have some initial constipation then diarrhea with recent surgery and chemo treatment and also admits to black stools but noted with brown heme + stool per nursing staff. Hx colonoscopy 2020 with TA polyp, otherwise normal. Pt
was unsure about NSAID use but was on Dexamethasone prior to admission per chart. Labs notable for WBC 12,200 on admission with normalization, stable hbg 13.7, persistent hyponatremia with renal following Na 122-125, K 3.3, and normal LFT's on
admission.
Past Medical History
Past Medical History: Asthma (as child ), Cancer (adeno Ca lung ), COPD (emphysema ), GERD, HTN, Hypercholesterolemia, Psychiatric (bipolar disorder) and Other (PUD, hep C, prior PNA, bronchitis, insomnia, colon polyps, tobacco abuse, spinal
stenosis , suspected sleep apnea, MRSA)
Past Surgical History: Orthopedic (trigger finger surgery, meniscus surgery, carpel tunnel,) and Other (RATS upper lobectomy with LN dissection 04/2025 )
Social History
Tobacco: Former Smoker
Alcohol: Former
Drug: Other (hx prior substance abuse years ago )
Living: Alone
Employment: Disabled
Family History
Family History: Other (denies family hx colon CA or polyps)
Allergies / Home Medications
Allergy/AdvReac Type Severity Reaction Status Date / Time
No Known Allergies Allergy Verified 06/08/25 10:34
�Medication �Instructions �Recorded
losartan 50 mg tablet 50 mg PO HS Blood Pressure 02/11/25
metoprolol tartrate 25 mg tablet 12.5 mg (1/2 x 25 mg) PO BID Heart 04/17/25
Rate Control #30 tabs
dexamethasone 4 mg tablet 4 mg PO DIRECTED 06/08/25
Anti-Inflammatory
folic acid 1 mg tablet 1 mg PO DAILY Supplement 06/08/25
ondansetron 8 mg disintegrating 8 mg PO [id number] PRN nausea 06/08/25
tablet
prochlorperazine maleate 10 mg 10 mg PO BIDPRN PRN nausea 06/08/25
tablet (Compazine)
therapeutic multivitamin 1 tab PO DAILY Supplement 06/08/25
umeclidinium 62.5 mcg-vilanterol 1 inh inhalation R DAILY 06/08/25
25 mcg/actuation powdr for Lung/Breathing Issues
inhalation (Anoro Ellipta)
Review of Systems
-
History Source: Patient
Constitutional: Reports Fever and Fatigue
EENT: Reports No Symptoms
Respiratory: Reports Cough and Hemoptysis (? small amount of mucous with blood this am in shower )
Abdomen/GI: Reports Abdominal Pain, Nausea, Diarrhea and Black Stools
: Reports No Symptoms
Musculoskeletal: Reports No Symptoms
Skin: Reports No Symptoms
Neurological: Reports Weakness
Endocrine: Reports No Symptoms
Hematologic/Lymphatic: Reports Bleeding
Vital Signs
Temp Pulse Resp BP Pulse Ox
98 F 89 16 117/70 98
06/10/25 23:24 06/10/25 23:24 06/10/25 23:24 06/10/25 23:24 06/10/25 23:24
Physical Exam
Exam
General: Well Developed, Well Nourished, No Apparent Distress and Other (in shower noted with quarter sized blood/mucous expectorated )
HEENT: Normocephalic and Anicteric
Respiratory: Other (decreased bases )
Cardiac: Regular Rhythm
GI: Soft, Non Distended and Tender (epigastric )
Rectal: Other (brown heme + per staff )
Musculoskeletal: No Clubbing and No Cyanosis
Skin: Warm and Dry
Neuro: Awake, Alert and AO x 3
Psych: Calm
Results
WBC 5.0 10^3/uL (4.8-10.8) 06/11/25 05:56
Hgb 13.7 g/dL (13.0-18.0) 06/11/25 05:56
Hct 38.9 % (39.0-52.0) L 06/11/25 05:56
MCV 82.2 fL (80.0-94.0) 06/11/25 05:56
Plt Count 233 10^3/uL (130-400) 06/11/25 05:56
Absolute Neuts (auto) 13.4 10^3/uL (1.4-6.5) H 06/08/25 12:19
Sodium 123 mmol/L (135-145) L 06/11/25 05:56
Potassium 3.3 mmol/L (3.5-5.1) L 06/11/25 05:56
Chloride 86 mmol/L (98-107) L 06/11/25 05:56
Carbon Dioxide 29 mmol/L (22-30) 06/11/25 05:56
BUN 24 mg/dl (9-20) H 06/11/25 05:56
Creatinine 1.3 mg/dL (0.7-1.3) 06/11/25 05:56
Calcium 8.9 mg/dl (8.4-10.2) 06/11/25 05:56
Total Bilirubin 1.5 mg/dl (0.2-1.3) H 06/08/25 12:19
AST 20 U/L (17-59) 06/08/25 12:19
ALT 31 U/L (0-50) 06/08/25 12:19
Alkaline Phosphatase 53 U/L (38-126) 06/08/25 12:19
Diagnostic Image Results:
06/10/25 CT Chest With Iv Contrast
Status post left upper lobectomy.
Focal area of parenchymal airspace opacity within the right lower lobe as described, very likely representing pneumonia.
Small focus of groundglass pneumonitis in the anterolateral and inferior right upper lobe.
There is a nodular density in the superior aspect of the right middle lobe, slightly increased from CT scan of January 28, 2025. Follow-up CT of the chest is recommended after treatment for pneumonia to assess for any interval change in this right
middle lobe nodule. With increasing size of right middle lobe nodule, concern is raised for neoplasia/bronchogenic carcinoma.
Small pericardial effusion.
Prior GI Procedures:
EGD: pt did not recall in past
Colonoscopy: 07/2021- [facility] colonoscopy - One 5 mm polyp in the sigmoid colon, removed with a
cold snare. Resected and retrieved.
- The examination was otherwise normal.
bx TA
Assessment / Plan
-
Pt is a 59yo with hx PUD(distant history while in school -- did not recall scope), HTN, hyperlipidemia, asthma, bronchitis, emphysema, tobacco abuse, adeno lung with recent RATS procedure with resection in 04/2025 on chemo(cisplatin + Alimta),
bipolar, hep C (prior interferon therapy early ), substance abuse years ago, presents 06/08 with weakness, fever 100.4 and fall. he also reported diarrhea. On admission concern for PNA with hypoxemia with sepsis, hyponatremia. Pt was noted
with black stool during admission and reports recent black stools and also bringing up blood while in the shower.
brown heme + stool per nursing staff. Hx colonoscopy 2020 with TA polyp, otherwise normal. Pt was unsure about NSAID use but was on Dexamethasone prior to admission per chart. Labs notable for WBC 12,200 on admission with normalization, stable
hbg 13.7, persistent hyponatremia with renal following Na 122-125, K 3.3, and normal LFT's on admission.
-heme + stool with normal hbg
-hematemesis vs hemoptysis with quarter sized blood/mucous 06/11
-concern for PNA/sepsis on admission
-constipation then diarrhea
-persitent hyponatremia
-hypokalemia
-distant hx presumed PUD without EGD years ago
-adeno lung with recent RATS procedure with resection in 04/2025 on chemo(cisplatin + Alimta) on steroids prior to admission with immunosuppression
other med problems:
- HTN
- hyperlipidemia
-asthma/ bronchitis/ emphysema/ tobacco abuse
- bipolar
- hep C (prior interferon therapy early ) normal LFT's
- substance abuse years ago
PLAN:
etiology of heme + stools unclear -- per pt black but brown her nursing notes -- PUD with steroid use, ectasia, vs other
hbg stable 13.7
no signs of aggressive bleeding and still with persistent hyponatremia and PNA no candidate for scope at this time
can consider OP EGD if symptoms persist
trend hbg repeat at 1400
ok for full liquids if H/H stable and no further signs of bleeding ok to advance diet later
cont PPI BID -- ok to add tums PRN
cont correction of Na and K
monitor for recurrent diarrhea
updated nursing staff
-
-
Thank you for consultation and allowing me to participate in the patient's care. Please call the director [employer] GI physician during the after hours with any questions or concerns.
[2025-06-11] MEDS: MUCINEX 600 MG PO ×2 (08:22→21:22)
[2025-06-11] MEDS: TUMS CHEWABLE TABLET 400 MG PO (08:22)
[2025-06-11] MEDS: PROTONIX IV 40 MG IV ×2 (08:24→21:22)
[2025-06-11] MEDS: NSS (PRESERVATIVE FREE) 10 ML IV ×2 (08:24→21:22)
[2025-06-11] MEDS: ZITHROMAX 500 MG PO (08:24)
[2025-06-11] MEDS: LOPRESSOR 12.5 MG PO ×2 (08:24→21:22)
--- NOTE | 2025-06-11 09:51 | W.PN.ONC2 ---
Documented by User: CATHI Rios 06/11/25 11:24
Today's Communication / Plan
-
OP follow up wtih Dr. Clifford 06/22, next cycle due 06/26
Impression
Impression
a/w acute hypoxic respiratory failure/sepsis
Stage IIb NSCLCa s/p left upper lobectomy April 2025, C1 cisplatin, alimta 06/05, no GCSF
RUL Pneumonia, influenza negative, Bcx NTD
Metabolic encephalopathy
Hyponatremia/hypokalemia
diarrhea, heme positive stool, Hx PUD, stool culture neg, c.diff neg
hep C with prior interferon therapy early
Plan
Plan
hyponatremia and electrolytes s/p tolvaptan per nephrology
GI following heme positive stool, hgb 13.7gd/L
abx per primary service
continue supportive care
optimize performance status to continue chemotherapy. If needs SNF at [facility] then will hold antineoplastic therapy until performance status allows for return home.
Subjective/Objective
Subjective
no new complaints
afebrile, no hypoxia or hypotension
using oxycodone IR prn pain
cough unchanged
Vital Signs:
Vital Signs
Temp Pulse Resp BP Pulse Ox
99.0 F 88 18 119/72 95
06/11/25 07:00 06/11/25 07:00 06/11/25 07:00 06/11/25 07:00 06/11/25 08:15
Lab Results:
Laboratory Data
WBC 5.0 10^3/uL (4.8-10.8) 06/11/25 05:56
Hgb 13.7 g/dL (13.0-18.0) 06/11/25 05:56
Plt Count 233 10^3/uL (130-400) 06/11/25 05:56
eGFR > 60.00 06/11/25 05:56
Physical Exam
HEENT: Moist Mucous Membranes; No Jaundice
Pulmonary: Other (unlabored)
GI: Soft
Extremities: Pulses Present

Documented by User: Bryant Reid MD 06/11/25 11:55
Plan
Plan
hyponatremia and electrolytes s/p tolvaptan per nephrology
GI following heme positive stool, hgb 13.7gd/L
abx per primary service
continue supportive care
optimize performance status to continue chemotherapy. If needs SNF at [facility] then will hold antineoplastic therapy until performance status allows for return home.
Oncology Addendum:
Patient seen and evaluated and agree w/ [employer] note and plan as outlined
-stage IIB NSCLC - s/p 1 cycle cis/alimta
-hyponatremia - tolvaptan per nephrology
-follow BMP
-RUL pneumonia - antibiotics
-cont supportive care
will continue to follow with you
--- NOTE | 2025-06-11 09:53 | W.PN.HOSP.TC ---
Addendum entered and electronically signed by Jessica Cruz MD 06/11/25 13:57:
I saw and evaluated the patient independently. I reviewed the resident�s note and agree with findings and plan as documented by Dr. Mendoza.
GENERAL: well developed, well nourished, male in no apparent distress--pt c/o of black stool/diarrhea--pt no longer cold and clammy, now warm to touch
HEENT: NC/AT
HEART: regular rate and rhythm, +S1, +S2
LUNGS : rhonchi bilaterally
ABDOM: soft, nontender, nondistended, + bowel sounds
EXT: no cyanosis, clubbing, or edema
NEUROLOGIC: grossly intact
sepsis (POA) with Metabolic encephalopathy--likely due to acute hypoxia secondary to pneumonia (confirmed by CT of chest)--O2 to off--change rocephin/zithromax to vanco/zosyn--consult ID--apprec onc since pt with recent lobectomy and started
chemo--cultures all negative--holding losartan for now
Generalized weakness --likely secondary to pneumonia-- Physical therapy has been consulted--pt cold, clammy, does not feel well--? whether he has been taking meds (i.e. opiates) and is withdrawing?--restarted oxy 5 mg PRN
Hyponatremia--likely volume depletion as cause--apprec renal-- IVF stopped--follow BMP--apprec renal--s/p samsca without result--now on 3% NaCl
black (per pt) heme positive stool--HGB stable--apprec GI--add IV PPI--no scopes at this time
Lung cancer--s/p recent lobectomy--started on chemo- [facility], apprec input
Diarrhea-- stool culture negative, full liquid diet--heme positive stool--HGB stable--apprec GI
Essential Hypertension--Metoprolol and losartan to be continued based on blood pressure
DVT proph--subcutaneous Lovenox
code status--Full code
Original Note:
Today's Communication/Plan
-
Switch to Zosyn and vancomycin
ID consult
Trend Hb at 1400
Low dose basal-bolus insulin therapy
Assessment / Plan
Assessment / Plan
59-year-old male with a past medical history of lung cancer status post lobectomy and chemotherapy, hypertension, hyperlipidemia, PTSD, bipolar disorder who presented with generalized weakness and confusion for the past few days. Patient had a
lobectomy performed on 05/06, and received first dose of chemotherapy on 06/05/2025. Since receiving the first dose of chemotherapy patient has had fatigue, nausea, more than 10 episodes of diarrhea per day. He denies vomiting, dysuria,
hematuria. At the time of admission, patient had hyponatremia at 125 with concerns of pneumonia. Patient was started on 3 L of oxygen at the time of presentation but has slowly weaned off to as needed.
#Metabolic encephalopathy, acute hypoxia likely due to pneumonia
# Sepsis
- CBC shows WBC count of 5 today, decreased from 15 at time of admission.
� CXR negative for pneumonia, but CT chest revealed pneumonia
- Symptoms not improving - infectious disease consult placed.
- Discontinue ceftriaxone and azithromycin. Switch to Zosyn and vancomycin.
# Hyponatremia -likely due to dehydration
- Nephrology following
- NA 123 today
- Follow BMP
- Fluid restrict
# Hyperglycemia
- 180 today at 6 AM
- Low dose basal-bolus insulin therapy
#Generalized weakness
- Physical therapy consult sent
# GI bleed
# Diarrhea
- Hb stable at 13.7
- GI consulted: Recommending trending Hb at 1400, can consider OP EGD if symptoms persist
- okay for full liquids if H&H stable, okay to advance diet later
- Continue PPI twice daily and Tums as needed
- Monitor for recurrent diarrhea
# History of drug abuse
- Given patient is having diarrhea and was shaking upon reevaluation of patient this morning, raises concern for opioid withdrawals.
- Will give oxycodone to monitor improvement
# History of bipolar disorder, PTSD
- Offered patient the opportunity to consult psychiatry but patient denied.
- He is currently not on any psychiatry medications. Patient states he does not need any psychiatric medications or therapy currently.
# Lung cancer
- Oncology saw patient. They recommend continuing supportive care and monitor status.
# Hypertension
- Metoprolol and losartan to be continued based on blood pressure
DVT prophylaxis subcutaneous Lovenox
Full code
Anticipated Discharge: > 48 hours
Subjective/Interval History
-
Date of Service: June 11, 2025
59-year-old male with a past medical history of lung cancer status post lobectomy and chemotherapy, hypertension, hyperlipidemia, PTSD, bipolar disorder who presented with generalized weakness and confusion for the past few days. Patient had a
lobectomy performed on 05/06, and received first dose of chemotherapy on 06/05/2025. Since receiving the first dose of chemotherapy patient has had fatigue, nausea, more than 10 episodes of diarrhea per day. He denies vomiting, dysuria,
hematuria. At the time of admission, patient had hyponatremia at 125 with concerns of pneumonia. He was empirically put on ceftriaxone and azithromycin. Initial CXR did not show pneumonia, but CT chest confirmed it. Upon evaluation today, patient
states his diarrhea stopped last night. Patient endorses intermittent cough, chills, dyspepsia, fatigue and headache. His blood glucose levels have been elevated.
Additional history obtained: He has a history of MRSA and hepatitis C. Denies history of drug use recently.
Objective Data
-
Labs:
Laboratory Results
06/11/25 06/11/25
05:56 14:00
WBC 5.0
Hgb 13.7 Pending
Hct 38.9 L Pending
Plt Count 233
Sodium 123 L
Potassium 3.3 L
Chloride 86 L
Carbon Dioxide 29
BUN 24 H
Creatinine 1.3
Glucose 180 H
Calcium 8.9
Vital Signs:
Vital Signs
Temp Pulse Resp BP Pulse Ox
99.0 F 88 18 119/72 95
06/11/25 07:00 06/11/25 07:00 06/11/25 07:00 06/11/25 07:00 06/11/25 08:15
I&O
06/10/25 06/11/25 06/12/25
06:59 06:59 06:59
Intake Total 2100 / 2099 2400 / 2400
Output Total 2205 / 2205
Balance -105 / -105 2400 / 2400
Review of Systems
-
History Source: Patient
All other systems: Reviewed and negative
Constitutional: Reports Fatigue and Chills
EENT: Reports No Symptoms Reported
Respiratory: Reports Cough
Cardiac: Reports No Symptoms
Abdomen/GI: Reports Indigestion
Breast: Reports No Symptoms
Genitourinary: Reports No Symptoms
Musculoskeletal: Reports No Symptoms
Skin: Reports No Symptoms
Neuro: Reports Headache
Endocrine: Reports No Symptoms
Hematologic / Lymphatic: Reports No Symptoms
Allergy / Immunology: Reports No Symptoms
Physical Exam
-
General: No Apparent Distress, Comfortable and Conversant
HEENT: Normocephalic, Atraumatic, Moist Mucous Membranes, PERRLA, Nose Appears Normal and Ears Appear Normal
Respiratory: Clear to Auscultation
Cardiac: Regular Rhythm and S1/S2
Breast: Deferred by me
GI: Soft, Nontender, Nondistended and Normal Bowel Sounds
Rectal: Deferred by Provider
Genito-urinary: No Costovertebral Tender
Musculoskeletal: No Clubbing, No Cyanosis and No Edema
Skin: Warm and Dry
Neuro: AO x 3
Hematologic / Lymphatic: No Lymphadenopathy
Psych: Calm
Data Reviewed
-
CT Scan: Report Reviewed by me, Discussed with Physician and Discussed with Patient
[2025-06-11] MEDS: SODIUM CHLORIDE 3% 250 IV (10:47)
[2025-06-11 11:06] LABS: Glucose - Point of Care 200 mg/dl (70-99)
--- NOTE | 2025-06-11 11:19 | PHA.VAN.IN ---
Assessment
- Assessment
Renal Function: SCR Appears Elevated from baseline (SCR 1.3 vs 0.8-1)
Concomitant Antimicrobials: piperacillin/tazobactam
Plan
- Plan
Initial / Loading Dose: 2000mg - administration pending
Maintenance Regimen: dosing by level to follow SCR trend
Monitoring: random 06/12 0600
MRSA Screen: Ordered per protocol
Pharmacokinetics Vancomycin I
- -
Patient Age: 59
Patient Sex: Male
Vancomycin Day #: 1
Indication: Pulmonary/Respiratory
Requesting Provider: Dr. Mendoza ([facility])
Pertinent Antimicrobial Allergies:
NKDA
Height / Weight:
Height 5 ft 9 in
Actual Weight 87.543 kg
Pertinent Past Medical History: Lung Cancer
- Vital Signs / Lab Results
Temp Pulse Resp BP Pulse Ox
99.0 F 88 18 119/72 95
06/11/25 07:00 06/11/25 07:00 06/11/25 07:00 06/11/25 07:00 06/11/25 08:15
Lab Results - Hematology
06/08/25 06/09/25 06/10/25
12:19 05:36 05:44
WBC 15.1 H 12.2 H 8.3
06/11/25
05:56
WBC 5.0
Lab Results - Chemistry
06/08/25 06/08/25 06/09/25
12:19 21:16 05:36
BUN 17 17 16
Creatinine 0.9 0.9 0.9
Estimated Creat Clear 93 87 87
Albumin 4.3
06/10/25 06/10/25 06/11/25
05:44 08:35 05:56
BUN 19 18 24 H
Creatinine 0.9 1.0 1.3
Estimated Creat Clear 87 79 60
Albumin
06/08/25 06/08/25
12:00 12:19
Lactic Acid Cancelled 1.5
Lab Results - Urine
06/08/25
13:56
Urine Nitrite (Reflex) Negative
Leukocyte Esterase Rfl Negative
Microbiology Results
06/09/25 04:02 Salmonella/Shigella Culture - Final
Feces/Stool No Salmonella, Shigella, Aeromonas or Plesiomonas species
isolated.
Campylobacter Culture - Final
No Campylobacter species isolated.
Shiga Toxin Test - Final
No E. coli Shiga Toxin 1 or 2 detected.
06/08/25 16:24 Blood Culture - Preliminary
Blood/Venous No Growth in 48 hours- Final report to follow
06/08/25 12:19 Blood Culture - Preliminary
Blood/Venous No Growth in 48 hours- Final report to follow
06/08/25 17:29 Respiratory Culture - Final
Sputum Usual Respiratory Maria De Jesus
Gram Stain - Final
06/09/25 10:41 C. difficile GDH Antigen & Toxins - Final
Feces/Stool Negative for toxigenic C.difficile
06/09/25 04:03 Stool Leukocytes - Final
Feces/Stool
06/08/25 20:47 Legionella Urinary Antigen - Final
Urine Negative for Legionella pneumophila Serogroup 1 antigen.
A negative result does not rule out the possiblity of
Legionella infection due to other serogroups or species of
Legionella. Clinical correlation is recommended.
Streptococcus pneumoniae Antigen (M - Final
Negative for Streptococcus pneumoniae antigen.
A negative result does not exclude infection with
Streptococcus pneumoniae. Clinical correlation is
recommended.
[2025-06-11] MEDS: ZOSYN 100 IV (11:57)
[2025-06-11] MEDS: VANCOCIN 540 MG IV (12:25)
[2025-06-11] MEDS: NOVOLOG FLEXPEN-LOW RESISTANCE 2 UNITS SC (13:02)
--- NOTE | 2025-06-11 13:48 | W.PN.NEPH.PH ---
Today's Communication / Plan
-
3% saline started
Assessment/Plan
-
IMP:
Metabolic encephalopathy/acute hypoxia likely secondary to pneumonia
Sepsis as evidenced
Generalized weakness secondary to pneumonia
n/diarrhea pot chemo
Hyponatremia likely hypovolemic
Recent lung cancer with last chemo on 06/05
Essential hypertension
HLD
chr bronchitis
Plan:
Sodium went down to 122 with normal saline responding physiologically like SIADH despite a low urine sodium
Samsca given x 1 for repeat sodium of 124= no response
follow BMP
Fluid restrict
Started 3% saline
-
-
Date of Service: June 11, 2025
CC / HPI / ROS
-
Chief Complaint:
hyponatremia
History of Present Illness:
Na remains low
BP stable
breathing better
Review of Systems:
no CP/SOB
Labs
-
Labs:
WBC 5.0 10^3/uL (4.8-10.8) 06/11/25 05:56
RBC 4.73 10^6/uL (4.70-6.10) 06/11/25 05:56
Plt Count 233 10^3/uL (130-400) 06/11/25 05:56
Sodium 123 mmol/L (135-145) L 06/11/25 05:56
Potassium 3.3 mmol/L (3.5-5.1) L 06/11/25 05:56
Chloride 86 mmol/L (98-107) L 06/11/25 05:56
Carbon Dioxide 29 mmol/L (22-30) 06/11/25 05:56
BUN 24 mg/dl (9-20) H 06/11/25 05:56
Creatinine 1.3 mg/dL (0.7-1.3) 06/11/25 05:56
eGFR > 60.00 06/11/25 05:56
Glucose 180 mg/dl (70-99) H 06/11/25 05:56
Calcium 8.9 mg/dl (8.4-10.2) 06/11/25 05:56
Albumin 4.3 g/dl (3.5-5.0) 06/08/25 12:19
Physical Exam
-
Vital Signs:
Vital Signs
Temp Pulse Resp BP Pulse Ox
99.0 F 88 18 119/72 95
06/11/25 07:00 06/11/25 07:00 06/11/25 07:00 06/11/25 07:00 06/11/25 08:15
Cardiovascular:: Regular rate and rhythm
Respiratory:: Bilateral: Coarse
Lung Excursion:: Normal
Abdomen:: Nontender and Soft
Bowel Sounds:: Normal
Extremity Edema:: None: Bilateral:
[2025-06-11 14:23] LABS: Hematocrit 38.3 % (39.0-52.0); Hemoglobin 13.6 g/dL (13.0-18.0)
[2025-06-11 15:00] VITALS: BP 118/63
[2025-06-11] MEDS: TYLENOL 650 MG PO (15:17)
--- NOTE | 2025-06-11 15:43 | CON.ID ---
Consultation
-
Date/Time Consultation Requested: 06/11/2025 0557
Date/Time Consultation Performed: 06/11/2025 1530
Requesting Provider: Dr. Mendoza
Performing Provider: Dr. Chew
Reason for Consultation: Pneumonia
Chief Complaint / Past History
History of Present Illness
Meir Serrato is a 59-year-old man with a significant past medical history of recently diagnosed lung cancer being evaluated at the request of Dr. Mendoza regarding pneumonia. History is obtained from chart review, along with patient interview.
The patient recently was diagnosed with non-small cell lung cancer of the left upper lobe and underwent an elective RATS of the left upper lobe with lymph node dissection on 04/15/2025. He received his first dose of adjuvant chemotherapy (cisplatin
plus Alimta) on 06/05. Following initial chemotherapy he became weak and confused. He also sustained a fall in the shower and was incontinent of diarrhea. He admits to shortness of breath and productive cough. CT imaging has revealed the presence
of an infiltrate. He has been started on empiric antibiotics, and Infectious Diseases is asked to comment upon further antimicrobial management.
At the present time he reports feeling diffusely poor, with generalized pain. He reports some cough with some dark-colored sputum intermittently.
Past History
Additional Past Medical History:
Stage IIIb NSCLCa
Lumbar radiculopathy
Cervical radiculopathy
Osteoarthritis
Emphysema
HTN
Bipolar disease
Chronic bronchitis
Additional Past Surgical History:
Left upper lobe lobectomy
Right knee torn meniscus
Left hand surgery
Carpal tunnel release
Allergy History:
No known Allergies Allergy (Verified 06/08/25 10:34)
Medications Reviewed: Yes
Current Antibiotics:
Vancomycin (dosing per pharmacy)
Zosyn 4.5 gm IV q.6 hours
Social History
Tobacco: Former Smoker
Alcohol: Former
Drug: None
Personal: Single
Living: Alone
Employment: Disabled
Family History
Family History: Not Pertinent
Review of Systems
Vital Signs
Temp Pulse Resp BP Pulse Ox
99.0 F 88 18 119/72 95
06/11/25 07:00 06/11/25 07:00 06/11/25 07:00 06/11/25 07:00 06/11/25 08:15
Physical Exam
Physical Exam
Constitutional: No Acute Distress, Comfortable, Acutely Ill and Non-toxic
Head: Normocephalic
Eyes: Pupils Equal, Pupils Round, No Conjunctival Hemorrhage and Sclera Anicteric
Oral: No Thrush and No Ulcers
Cardiovascular: Regular Rate and S1/S2; Negative S3/S4
Pulmonary: Coarse and Non Labored; Negative Wheezes
Gastrointestinal: Soft, Non Tender, Non Distended and Normal Bowel Sounds
Genito-Urinary: Negative Emmanuel
Extremities: Negative Edema, Cyanosis or Erythema
Skin: Warm and Dry; Negative Rash or Jaundice
Neurological: Awake and Alert
Psychological: Calm
.
Lab / Diagnostic Study Results
06/11/25 14:11
Abs Immat Gran (auto) 0.2 10^3/uL (0-0.05) H 06/08/25 12:19
Absolute Neuts (auto) 13.4 10^3/uL (1.4-6.5) H 06/08/25 12:19
Absolute Lymphs (auto) 1.0 10^3/uL (1.2-3.4) L 06/08/25 12:19
Absolute Monos (auto) 0.6 10^3/uL (0.1-0.6) 06/08/25 12:19
Absolute Basos (auto) 0.0 10^3/uL (0-0.2) 06/08/25 12:19
Immature Gran % 1.3 % (0-0.5) H 06/08/25 12:19
Neutrophils % 88.4 % (42.2-75.2) H 06/08/25 12:19
Lymphocytes % 6.5 % (20.5-51.1) L 06/08/25 12:19
Monocytes % 3.7 % (1.7-9.3) 06/08/25 12:19
Eosinophils % 0.0 % (0-6) 06/08/25 12:19
Basophils % 0.1 % (0-2) 06/08/25 12:19
Lactic Acid 1.5 mmol/L (0.7-2.0) 06/08/25 12:19
Microbiology Results
Micro:
06/11/25 11:39 Nasal Screen MRSA (PCR) - Final
Nose MRSA not detected - performed by PCR methodology.
06/08/25 12:19 Blood Culture - Preliminary
Blood/Venous No Growth in 72 hours- Final report to follow
06/09/25 04:02 Salmonella/Shigella Culture - Final
Feces/Stool No Salmonella, Shigella, Aeromonas or Plesiomonas species
isolated.
Campylobacter Culture - Final
No Campylobacter species isolated.
Shiga Toxin Test - Final
No E. coli Shiga Toxin 1 or 2 detected.
06/08/25 16:24 Blood Culture - Preliminary
Blood/Venous No Growth in 48 hours- Final report to follow
06/08/25 17:29 Respiratory Culture - Final
Sputum Usual Respiratory Maria De Jesus
Gram Stain - Final
06/09/25 10:41 C. difficile GDH Antigen & Toxins - Final
Feces/Stool Negative for toxigenic C.difficile
06/09/25 04:03 Stool Leukocytes - Final
Feces/Stool
06/08/25 20:47 Legionella Urinary Antigen - Final
Urine Negative for Legionella pneumophila Serogroup 1 antigen.
A negative result does not rule out the possiblity of
Legionella infection due to other serogroups or species of
Legionella. Clinical correlation is recommended.
Streptococcus pneumoniae Antigen (M - Final
Negative for Streptococcus pneumoniae antigen.
A negative result does not exclude infection with
Streptococcus pneumoniae. Clinical correlation is
recommended.
06/08/25 12:19 Influenza Types A & B (JAMAL) - Final
Nasal Swab Negative for Influenza A & B, NAAT
Negative results must be combined with clinical observations
and patient history.
Nucleic Acid Amplification test (NAAT)performed on the
[employer] platform.
Imaging:
06/10/2025 CT chest with contrast: status post left upper lobectomy. Focal area of parenchymal opacity within the right lower lobe suspicious for pneumonia. Small focus of groundglass pneumonitis in the anterior lateral and inferior right upper
lobe. A nodular density in the superior aspect of the right middle lobe is slightly increased from a CT in January 2025. Please see the full dictation for additional detail. Film personally reviewed.
Assessment / Plan
Right lower lobe infiltrate, suspected PNA
Leukocytosis; improved
Hyponatremia
Stage IIIb NSCLCa
Lumbar radiculopathy
Cervical radiculopathy
Osteoarthritis
Emphysema
HTN
Bipolar disease
Chronic bronchitis
Recommendations:
MRSA screen negative. Discontinue further vancomycin.
Discontinue Zosyn; narrow to Unasyn 3 gm IV q.6 hours
Attempt recollection of sputum as prior sample was contaminated with oropharyngeal fluid.
Monitor white count and temperature curve.
Continue Azithromycin for atypical coverage.
Further recommendations as additional data is returned
--- NOTE | 2025-06-11 16:28 | CM ---
Patient now with pneumonia per physician. Patient plan is for home with [facility] pending therapy assessments. CM will continue to follow for discharge planning needs.
Plan; home with therapy
[2025-06-11 16:51] LABS: Glucose - Point of Care 175 mg/dl (70-99)
[2025-06-11] MEDS: NOVOLOG FLEXPEN-LOW RESISTANCE 1 UNITS SC (17:26)
[2025-06-11] MEDS: LOVENOX 40 MG SC (17:27)
[2025-06-11] MEDS: UNASYN IV ×2 (17:34→23:35)
[2025-06-11 19:53] LABS: Blood Urea Nitrogen 20 mg/dl (9-20); Calcium 8.7 mg/dl (8.4-10.2); Carbon Dioxide 29 mmol/L (22-30); Chloride 91 mmol/L (98-107); Estimated Creatinine Clearance 52 ml/min; Glucose 138 mg/dl (70-99); Potassium 3.2 mmol/L (3.5-5.1); Sodium 130 mmol/L (135-145); eGFR 52.97
[2025-06-11] MEDS: MELATONIN 5 MG PO (21:22)
[2025-06-11] MEDS: COZAAR 50 MG PO (21:22)
[2025-06-11 21:39] LABS: Glucose - Point of Care 160 mg/dl (70-99)
[2025-06-11 23:00] VITALS: BP 127/74
[2025-06-12] MEDS: UNASYN IV ×3 (05:32→18:48)
[2025-06-12 06:34] LABS: Blood Urea Nitrogen 19 mg/dl (9-20); Calcium 8.7 mg/dl (8.4-10.2); Carbon Dioxide 26 mmol/L (22-30); Chloride 90 mmol/L (98-107); Estimated Creatinine Clearance 65 ml/min; Glucose 143 mg/dl (70-99); Potassium 2.9 mmol/L (3.5-5.1); Sodium 127 mmol/L (135-145); eGFR > 60.00
[2025-06-12 06:49] LABS: Hematocrit 38.3 % (39.0-52.0); Hemoglobin 13.8 g/dL (13.0-18.0); Mean Corp Hgb Conc. 36.0 g/dL (33.0-37.0); Mean Corpuscular Volume 80.6 fL (80.0-94.0); Platelet Count 231 10^3/uL (130-400); Red Cell Dist. Width 13.7 % (11.5-14.5)
[2025-06-12 07:46] VITALS: BP 116/62
[2025-06-12 07:58] LABS: Glycohemoglobin (HgbA1c) 6.6 % (4.0-5.6)
[2025-06-12 08:39] LABS: Glucose - Point of Care 142 mg/dl (70-99)
[2025-06-12] MEDS: TYLENOL 650 MG PO (08:39)
[2025-06-12] MEDS: KCL 270 MEQ IV ×2 (08:39→14:48)
[2025-06-12] MEDS: ZITHROMAX 500 MG PO (08:40)
[2025-06-12] MEDS: MUCINEX 600 MG PO ×2 (08:40→22:16)
[2025-06-12] MEDS: NSS (PRESERVATIVE FREE) 10 ML IV ×2 (08:40→22:17)
[2025-06-12] MEDS: LOPRESSOR 12.5 MG PO ×2 (08:40→22:16)
[2025-06-12] MEDS: NOVOLOG FLEXPEN-LOW RESISTANCE SC (08:41)
[2025-06-12] MEDS: PROTONIX IV 40 MG IV ×2 (08:41→22:19)
--- NOTE | 2025-06-12 10:14 | W.PN.ID1 ---
Date of Service
Date of Service: June 12, 2025
Today's Communication
Continue antibiotics.
Assessment / Plan
Right lower lobe infiltrate, suspected PNA
Leukocytosis; improved
Hyponatremia
Stage IIIb NSCLCa
Lumbar radiculopathy
Cervical radiculopathy
Osteoarthritis
Emphysema
HTN
Bipolar disease
Chronic bronchitis
Recommendations:
MRSA screen negative; vancomycin previously discontinued.
Continue Unasyn 3 gm IV q.6 hours
Repeat sputum culture pending.
Monitor white count and temperature curve.
Continue Azithromycin for atypical coverage.
If remains clinically stable, may be able to transition Unasyn to Augmentin.
Chief Complaint
-: Pneumonia
Subjective / Review of Systems
Patient seen and examined. Reports ongoing feeling of general unwellness.
Review of Systems: No Fever, No Chills, Cough and Sputum Production (Minimal)
Vital Signs / Physical Exam
Vital Signs
Vital Signs
Temp Pulse Resp BP Pulse Ox
100.3 F 98 14 116/62 92
06/12/25 07:46 06/12/25 08:40 06/12/25 07:46 06/12/25 08:40 06/12/25 07:46
Physical Exam
Constitutional: No Acute Distress, Comfortable and Non-toxic
Eyes: No Conjunctival Hemorrhage and Sclera Anicteric
Cardiovascular: S1/S2; Negative S3/S4
Pulmonary: Non Labored and Other (Crackles right base)
Gastrointestinal: Soft, Non Tender and Non Distended
Neurological: Awake and Alert
Psychological: Calm
Objective Data
Lab Data
Lab Results
06/12/25 05:56
06/12/25 05:56
Estimated Creat Clear 65 ml/min 06/12/25 05:56
Lactic Acid 1.5 mmol/L (0.7-2.0) 06/08/25 12:19
Total Bilirubin 1.5 mg/dl (0.2-1.3) H 06/08/25 12:19
AST 20 U/L (17-59) 06/08/25 12:19
ALT 31 U/L (0-50) 06/08/25 12:19
Alkaline Phosphatase 53 U/L (38-126) 06/08/25 12:19
Most recent labs reviewed.
Micro Results:
06/11/25 18:05 Respiratory Culture - Pending
Sputum Gram Stain - Pending
06/08/25 16:24 Blood Culture - Preliminary
Blood/Venous No Growth in 72 hours- Final report to follow
06/11/25 11:39 Nasal Screen MRSA (PCR) - Final
Nose MRSA not detected - performed by PCR methodology.
06/08/25 12:19 Blood Culture - Preliminary
Blood/Venous No Growth in 72 hours- Final report to follow
06/09/25 04:02 Salmonella/Shigella Culture - Final
Feces/Stool No Salmonella, Shigella, Aeromonas or Plesiomonas species
isolated.
Campylobacter Culture - Final
No Campylobacter species isolated.
Shiga Toxin Test - Final
No E. coli Shiga Toxin 1 or 2 detected.
06/08/25 17:29 Respiratory Culture - Final
Sputum Usual Respiratory Maria De Jesus
Gram Stain - Final
06/09/25 10:41 C. difficile GDH Antigen & Toxins - Final
Feces/Stool Negative for toxigenic C.difficile
06/09/25 04:03 Stool Leukocytes - Final
Feces/Stool
06/08/25 20:47 Legionella Urinary Antigen - Final
Urine Negative for Legionella pneumophila Serogroup 1 antigen.
A negative result does not rule out the possiblity of
Legionella infection due to other serogroups or species of
Legionella. Clinical correlation is recommended.
Streptococcus pneumoniae Antigen (M - Final
Negative for Streptococcus pneumoniae antigen.
A negative result does not exclude infection with
Streptococcus pneumoniae. Clinical correlation is
recommended.
06/08/25 12:19 Influenza Types A & B (JAMAL) - Final
Nasal Swab Negative for Influenza A & B, NAAT
Negative results must be combined with clinical observations
and patient history.
Nucleic Acid Amplification test (NAAT)performed on the
[employer] platform.
Imaging:
06/10/2025 CT chest with contrast: status post left upper lobectomy. Focal area of parenchymal opacity within the right lower lobe suspicious for pneumonia. Small focus of groundglass pneumonitis in the anterior lateral and inferior right upper
lobe. A nodular density in the superior aspect of the right middle lobe is slightly increased from a CT in January 2025. Please see the full dictation for additional detail. Film personally reviewed.
[2025-06-12 11:44] LABS: Glucose - Point of Care 152 mg/dl (70-99)
[2025-06-12 13:08] LABS: Ammonia < 9 umol/L (9-30)
--- NOTE | 2025-06-12 13:50 | W.PN.NEPH.PH ---
Today's Communication / Plan
-
Fluid restrict
Assessment/Plan
-
IMP:
Metabolic encephalopathy/acute hypoxia likely secondary to pneumonia
Sepsis as evidenced
Generalized weakness secondary to pneumonia
n/diarrhea pot chemo
Hyponatremia likely hypovolemic
Recent lung cancer with last chemo on 06/05
Essential hypertension
HLD
chr bronchitis
Plan:
Sodium went down to 122 with normal saline responding physiologically like SIADH despite a low urine sodium
Samsca given x 1 for repeat sodium of 124= no response
follow BMP
Fluid restrict
Responded to 3% saline sodium increased to 130
Today it is down to 127 believe he is drinking more fluids than we are telling him
Had a long discussion about fluid restriction he keeps asking for ice
Recheck labs in the morning
-
-
Date of Service: June 12, 2025
CC / HPI / ROS
-
Chief Complaint:
hyponatremia
History of Present Illness:
Na remains low
BP stable
breathing better
Review of Systems:
no CP/SOB
Labs
-
Labs:
WBC 6.8 10^3/uL (4.8-10.8) 06/12/25 05:56
RBC 4.75 10^6/uL (4.70-6.10) 06/12/25 05:56
Hgb 13.8 g/dL (13.0-18.0) 06/12/25 05:56
Hct 38.3 % (39.0-52.0) L 06/12/25 05:56
Plt Count 231 10^3/uL (130-400) 06/12/25 05:56
Sodium 127 mmol/L (135-145) L 06/12/25 05:56
Potassium 2.9 mmol/L (3.5-5.1) L 06/12/25 05:56
Chloride 90 mmol/L (98-107) L 06/12/25 05:56
Carbon Dioxide 26 mmol/L (22-30) 06/12/25 05:56
BUN 19 mg/dl (9-20) 06/12/25 05:56
Creatinine 1.2 mg/dL (0.7-1.3) 06/12/25 05:56
eGFR > 60.00 06/12/25 05:56
Glucose 143 mg/dl (70-99) H 06/12/25 05:56
Calcium 8.7 mg/dl (8.4-10.2) 06/12/25 05:56
Albumin 4.3 g/dl (3.5-5.0) 06/08/25 12:19
Physical Exam
-
Vital Signs:
Vital Signs
Temp Pulse Resp BP Pulse Ox
100.3 F 98 14 116/62 92
06/12/25 07:46 06/12/25 08:40 06/12/25 07:46 06/12/25 08:40 06/12/25 07:46
Cardiovascular:: Regular rate and rhythm
Respiratory:: Bilateral: Coarse
Lung Excursion:: Normal
Abdomen:: Nontender and Soft
Bowel Sounds:: Normal
Extremity Edema:: None: Bilateral:
[2025-06-12 14:00] LABS: Magnesium 2.2 mg/dl (1.6-2.3)
[2025-06-12] MEDS: NOVOLOG FLEXPEN-LOW RESISTANCE 1 UNITS SC (14:00)
--- NOTE | 2025-06-12 14:32 | CM ---
Patient seen at bedside with physicians on . Patient complained of being sleepy and tired. Patient for further work up at this time. Patient plan is for home with [facility]; would like [facility] when medically appropriate. CM will continue to follow for
discharge planning needs.
Plan; home with [facility]N; jass watch for possible SNF needs and will need referrals when medically appropriate.
--- NOTE | 2025-06-12 14:39 | W.PN.HOSP.TC ---
Addendum entered and electronically signed by Jessica Cruz MD 06/12/25 16:22:
I saw and evaluated the patient independently. I reviewed the resident�s note and agree with findings and plan as documented by Dr. Mendoza.
GENERAL: well developed, well nourished, male in no apparent distress--pt c/o of black stool/diarrhea
HEENT: NC/AT
HEART: regular rate and rhythm, +S1, +S2
LUNGS : rhonchi bilaterally
ABDOM: soft, nontender, nondistended, + bowel sounds
EXT: no cyanosis, clubbing, or edema
NEUROLOGIC: grossly intact
sepsis (POA) with Metabolic encephalopathy--likely due to acute hypoxia secondary to pneumonia (confirmed by CT of chest)--O2 to off--change rocephin/zithromax to vanco/zosyn to Unasyn--apprec ID/ONC ---cultures all negative--restart losartan
Generalized weakness --likely secondary to pneumonia-- Physical therapy has been consulted--improving
Hyponatremia--likely volume depletion as cause--apprec renal-- IVF stopped--follow BMP--apprec renal--s/p samsca without result--now on 3% NaCl
black (per pt) heme positive stool--HGB stable--apprec GI--add IV PPI--no scopes at this time
Lung cancer--s/p recent lobectomy--started on chemo- [facility], apprec input
Diarrhea-- stool culture negative, full liquid diet, advance as tolerated--heme positive stool--HGB stable--apprec GI
Essential Hypertension--Metoprolol and losartan to be continued based on blood pressure
DVT proph--subcutaneous Lovenox
code status--Full code
Original Note:
Today's Communication/Plan
-
Pending TSH and random cortisol.
Continue Unasyn 3G IV every 6 hours
Continue Imodium liquid 2 Mg PO every 3 hours as needed
Monitor for altered mental status, and repeat BMP for hypokalemia.
Assessment / Plan
Assessment / Plan
59-year-old male with a past medical history of lung cancer status post lobectomy and chemotherapy, hypertension, hyperlipidemia, PTSD, bipolar disorder who presented with generalized weakness and confusion for the past few days. Patient had a
lobectomy performed on 05/06, and received first dose of chemotherapy on 06/05/2025. Since receiving the first dose of chemotherapy patient has had fatigue, nausea, more than 10 episodes of diarrhea per day. He denies vomiting, dysuria,
hematuria. At the time of admission, patient had hyponatremia at 125 with concerns of pneumonia. Patient was started on 3 L of oxygen at the time of presentation but has slowly weaned off to as needed.
#Metabolic encephalopathy, acute hypoxia likely due to pneumonia
# Sepsis
# ? Alerted mental status
� CXR negative for pneumonia, but CT chest revealed pneumonia
- ID consulted and following : MRSA screen negative-vancomycin was discontinued. Patient switched from Zosyn to Unasyn 3 g every 6 hours.
- Pending TSH and random cortisol
- Lactic acid and ammonia within normal limits. Monitor possible altered mental status.
# Hypokalemia
- K 2.9, ordered KCl rider 40 Mg IV x2 to replete
- Magnesium test ordered: Within normal limits
- Will monitor BMP
# Hyponatremia -likely due to dehydration
- Nephrology following: Samsca given no response. Continuing 3% saline
- Concern for paraneoplastic syndrome if Na still in 120s despite Samsca 3% saline
# Hyperglycemia
- Blood glucose 152 this morning
- Low dose basal-bolus insulin therapy
#Generalized weakness
- Physical therapy following
# GI bleed
# Diarrhea
- Hb stable at 13.8
- GI consulted: can consider OP EGD if symptoms persist
- Okay for regular diet
- Continue PPI twice daily and Tums as needed
- Given Imodium liquid 2 Mg p.o. every 3 hours as needed
# History of drug abuse
- The patient was given oxycodone, but symptoms still persist. Doubt opiate withdrawals.
# History of bipolar disorder, PTSD
- Offered patient the opportunity to consult psychiatry but patient denied.
- He is currently not on any psychiatry medications. Patient states he does not need any psychiatric medications or therapy currently.
# Lung cancer
- Oncology saw patient. They recommend continuing supportive care and monitor status.
# Hypertension
- Metoprolol and losartan to be continued based on blood pressure
DVT prophylaxis subcutaneous Lovenox
Full code
Anticipated Discharge: > 48 hours
Subjective/Interval History
-
Date of Service: June 12, 2025
59-year-old male with a past medical history of lung cancer status post lobectomy April 2025 and chemotherapy, hypertension, hyperlipidemia, PTSD, bipolar disorder, and hepatitis C who presented with generalized weakness and diarrhea status post
chemotherapy on 06/05/2025. He has also been having nausea, and cough with associated intermittent shortness of breath. He denied vomiting, dysuria, hematuria or any other symptoms. At the time of admission, patient had hyponatremia at 125
with concerns of pneumonia. Patient was started on 3 L of oxygen at the time of presentation but has slowly weaned off to as needed. Initial CXR did not show pneumonia, but CT chest confirmed pneumonia. He has been on Unasyn 3 g IV every 6 hours.
Upon evaluation today in the morning, patient provided limited history as he was ' sleepy.' He did express that his diarrhea returned last night. He was reevaluated in the afternoon, less sleepy at the time. He denies persistent headaches or neck
pain.
Objective Data
-
Labs:
Laboratory Results
06/12/25
05:56
WBC 6.8
Hgb 13.8
Hct 38.3 L
Plt Count 231
Sodium 127 L
Potassium 2.9 L
Chloride 90 L
Carbon Dioxide 26
BUN 19
Creatinine 1.2
Glucose 143 H
Calcium 8.7
Vital Signs:
Vital Signs
Temp Pulse Resp BP Pulse Ox
100.3 F 98 14 116/62 92
06/12/25 07:46 06/12/25 08:40 06/12/25 07:46 06/12/25 08:40 06/12/25 07:46
I&O
06/11/25 06/12/25 06/13/25
06:59 06:59 06:59
Intake Total 2400 / 2400 1780 / 1780
Output Total 1675 / 1675
Balance 2400 / 2400 105 / 105
Review of Systems
-
History Source: Patient
All other systems: Reviewed and negative
Constitutional: Reports Fatigue
EENT: Reports No Symptoms Reported
Respiratory: Reports Cough and Trouble Breathing
Cardiac: Reports No Symptoms
Abdomen/GI: Reports Diarrhea
Breast: Reports No Symptoms
Genitourinary: Reports No Symptoms
Musculoskeletal: Reports No Symptoms
Skin: Reports No Symptoms
Neuro: Reports No Symptoms
Endocrine: Reports No Symptoms
Hematologic / Lymphatic: Reports No Symptoms
Allergy / Immunology: Reports No Symptoms
Physical Exam
-
General: No Apparent Distress and Comfortable
HEENT: Normocephalic, Atraumatic, Moist Mucous Membranes, Anicteric and PERRLA
Respiratory: Crackles (Right lower lobe)
Cardiac: Regular Rhythm and S1/S2
Breast: Deferred by me
GI: Soft, Nontender, Nondistended and Normal Bowel Sounds
Rectal: Deferred by Provider
Genito-urinary: No Costovertebral Tender
Musculoskeletal: No Clubbing, No Cyanosis and No Edema
Skin: Warm and Dry
Data Reviewed
-
Labs: Labs Reviewed by me, Discussed with Physician, Discussed with Nurse and Discussed with Patient
Old Records: Reviewed
[2025-06-12 15:10] VITALS: BP 143/87
[2025-06-12 15:26] LABS: Cortisol, Random 42.4 ug/dl
[2025-06-12 16:51] LABS: Glucose - Point of Care 214 mg/dl (70-99)
[2025-06-12 16:54] VITALS: BP 112/69; BP 123/81; PULSE 98; O2SAT 96
[2025-06-12] MEDS: NOVOLOG FLEXPEN-LOW RESISTANCE 2 UNITS SC (18:27)
[2025-06-12] MEDS: LOVENOX 40 MG SC (18:29)
[2025-06-12 21:29] LABS: Glucose - Point of Care 146 mg/dl (70-99)
[2025-06-12] MEDS: MELATONIN 5 MG PO (22:16)
[2025-06-12] MEDS: COZAAR 50 MG PO (22:16)
[2025-06-12 22:56] LABS: Blood Urea Nitrogen 18 mg/dl (9-20); Calcium 8.2 mg/dl (8.4-10.2); Carbon Dioxide 28 mmol/L (22-30); Chloride 93 mmol/L (98-107); Estimated Creatinine Clearance 79 ml/min; Glucose 152 mg/dl (70-99); Potassium 3.3 mmol/L (3.5-5.1); Sodium 125 mmol/L (135-145); eGFR > 60.00
[2025-06-12 23:25] VITALS: BP 119/71
[2025-06-13] MEDS: UNASYN IV ×4 (00:26→17:46)
[2025-06-13] MEDS: KCL 270 MEQ IV (06:24)
[2025-06-13 07:00] VITALS: BP 120/77
[2025-06-13 07:46] LABS: Glucose - Point of Care 121 mg/dl (70-99)
[2025-06-13] MEDS: NOVOLOG FLEXPEN-LOW RESISTANCE SC ×3 (08:19→17:00)
[2025-06-13] MEDS: THERAGRAN 1 TABLET PO (08:57)
[2025-06-13] MEDS: LOPRESSOR 12.5 MG PO (08:57)
[2025-06-13] MEDS: FOLVITE 1 MG PO (08:57)
[2025-06-13] MEDS: PROTONIX IV 40 MG IV ×2 (08:58→21:04)
[2025-06-13] MEDS: NSS (PRESERVATIVE FREE) 10 ML IV ×2 (08:58→21:04)
[2025-06-13] MEDS: ZITHROMAX 500 MG PO (08:58)
[2025-06-13] MEDS: MUCINEX 600 MG PO ×2 (08:58→21:03)
[2025-06-13] MEDS: IMODIUM LIQUID 2 MG PO (09:09)
[2025-06-13 09:11] LABS: Hematocrit 35.5 % (39.0-52.0); Hemoglobin 12.3 g/dL (13.0-18.0); Mean Corp Hgb Conc. 34.6 g/dL (33.0-37.0); Mean Corpuscular Volume 83.7 fL (80.0-94.0); Nucleated Red Blood Cells % 0 % (-); Platelet Count 215 10^3/uL (130-400); Red Cell Dist. Width 14.1 % (11.5-14.5)
[2025-06-13 09:38] LABS: ALT (SGPT) 61 U/L (0-50); AST (SGOT) 52 U/L (17-59); Albumin 3.2 g/dl (3.5-5.0); Alkaline Phosphatase 71 U/L (38-126); Blood Urea Nitrogen 19 mg/dl (9-20); Calcium 8.5 mg/dl (8.4-10.2); Carbon Dioxide 31 mmol/L (22-30); Chloride 93 mmol/L (98-107); Estimated Creatinine Clearance 71 ml/min; Glucose 121 mg/dl (70-99); Potassium 3.5 mmol/L (3.5-5.1); Sodium 130 mmol/L (135-145); Total Protein 5.9 g/dl (6.3-8.2); eGFR > 60.00
--- NOTE | 2025-06-13 11:44 | W.PN.NEPH.PH ---
Today's Communication / Plan
-
must follow FR
Assessment/Plan
-
IMP:
Metabolic encephalopathy/acute hypoxia likely secondary to pneumonia
Sepsis as evidenced
Generalized weakness secondary to pneumonia
n/diarrhea pot chemo
Hyponatremia likely hypovolemic
Recent lung cancer with last chemo on 06/05
Essential hypertension
HLD
chr bronchitis
Plan:
sodium improving to 130 with HTS
seem he is trying to comply with FR
will d/c 3% now
follow labs in am
-
-
Date of Service: June 13, 2025
CC / HPI / ROS
-
Chief Complaint:
hyponatremia
History of Present Illness:
Na better at 130
BP stable
no fever
Review of Systems:
no CP/SOB
Labs
-
Labs:
WBC 7.7 10^3/uL (4.8-10.8) 06/13/25 07:55
RBC 4.24 10^6/uL (4.70-6.10) L 06/13/25 07:55
Hgb 12.3 g/dL (13.0-18.0) L 06/13/25 07:55
Hct 35.5 % (39.0-52.0) L 06/13/25 07:55
Plt Count 215 10^3/uL (130-400) 06/13/25 07:55
Sodium 130 mmol/L (135-145) L 06/13/25 07:55
Potassium 3.5 mmol/L (3.5-5.1) 06/13/25 07:55
Chloride 93 mmol/L (98-107) L 06/13/25 07:55
Carbon Dioxide 31 mmol/L (22-30) H 06/13/25 07:55
BUN 19 mg/dl (9-20) 06/13/25 07:55
Creatinine 1.1 mg/dL (0.7-1.3) 06/13/25 07:55
eGFR > 60.00 06/13/25 07:55
Glucose 121 mg/dl (70-99) H 06/13/25 07:55
Calcium 8.5 mg/dl (8.4-10.2) 06/13/25 07:55
Albumin 3.2 g/dl (3.5-5.0) L 06/13/25 07:55
Physical Exam
-
Vital Signs:
Vital Signs
Temp Pulse Resp BP Pulse Ox
98.1 F 72 20 120/77 98
06/13/25 07:00 06/13/25 08:57 06/13/25 07:00 06/13/25 08:57 06/13/25 07:00
Cardiovascular:: Regular rate and rhythm
Respiratory:: Bilateral: Coarse
Lung Excursion:: Normal
Abdomen:: Nontender and Soft
Bowel Sounds:: Normal
Extremity Edema:: None: Bilateral:
Emmanuel Catheter: No
[2025-06-13 11:49] LABS: Glucose - Point of Care 143 mg/dl (70-99)
--- NOTE | 2025-06-13 12:19 | CON.PUL ---
Consultation
Consultation Request
Date/Time Consultation Requested: 06/13/25
Date/Time Consultation Performed: 06/13/25
Performing Provider: Zahira
Reason for Consultation: PNA
Medical History
-
History of Present Illness:
Patient is a 59-year-old male with history of lung cancer status post recent lobectomy on chemotherapy, hypertension, hyperlipidemia who presents to the emergency department for evaluation of generalized weakness, confusion and syncope at home. Had
temp 100.4F and had diarrhea at home. Patient recently diagnosed with lung CA, underwent left sided lobectomy on 04/15/2025, and had first dose of chemotherapy on Sunday, 3 days ago.
Was noted to be hyponatremic, CT showing RLL concerning for pneumonia. Ordered IV ceftriaxone and azithromycin. Admitting for further management 06/08/25. CT showing nodules that are concerning for infection vs malignancy.
Past Medical History
Past Medical History: Other (see list below)
Social History
Tobacco: Former Smoker
Alcohol: None
Drug: None
Family History
Family History: Reviewed & Not Pertinent
Allergies / Home Medications
Allergies
Allergy/AdvReac Type Severity Reaction Status Date / Time
No Known Allergies Allergy Verified 06/08/25 10:34
Home Medications
�Medication �Instructions �Recorded �Confirmed �Last Taken �Type
losartan 50 mg tablet 50 mg PO HS Blood Pressure 02/11/25 06/08/25 04/08/25 History
metoprolol tartrate 25 mg tablet 12.5 mg (1/2 x 25 mg) PO BID Heart 04/17/25 06/08/25 Unknown Rx
Rate Control #30 tabs
dexamethasone 4 mg tablet 4 mg PO DIRECTED 06/08/25 06/08/25 Unknown History
Anti-Inflammatory
folic acid 1 mg tablet 1 mg PO DAILY Supplement 06/08/25 06/08/25 Unknown History
ondansetron 8 mg disintegrating 8 mg PO [id number] PRN nausea 06/08/25 06/08/25 Unknown History
tablet
prochlorperazine maleate 10 mg 10 mg PO BIDPRN PRN nausea 06/08/25 06/08/25 Unknown History
tablet (Compazine)
therapeutic multivitamin 1 tab PO DAILY Supplement 06/08/25 06/08/25 Unknown History
umeclidinium 62.5 mcg-vilanterol 1 inh inhalation R DAILY 06/08/25 06/08/25 Unknown History
25 mcg/actuation powdr for Lung/Breathing Issues
inhalation (Anoro Ellipta)
Review of Systems
-
History Source: Patient
All other systems: Negative unless noted
Vitals / Labs / Diagnostic Testing
Vital Signs
Temp Pulse Resp BP Pulse Ox
98.1 F 72 20 120/77 98
06/13/25 07:00 06/13/25 08:57 06/13/25 07:00 06/13/25 08:57 06/13/25 07:00
Lab Data
06/13/25 07:55
06/13/25 07:55
Microbiology
06/11/25 18:05 Sputum Respiratory Culture - Preliminary
Usual Respiratory Maria De Jesus
06/11/25 18:05 Sputum Gram Stain - Preliminary
06/08/25 16:24 Blood/Venous Blood Culture - Preliminary
No Growth in 4 days- Final report to follow
06/08/25 12:19 Blood/Venous Blood Culture - Preliminary
No Growth in 4 days- Final report to follow
06/11/25 11:39 Nose Nasal Screen MRSA (PCR) - Final
MRSA not detected - performed by PCR methodology.
06/09/25 04:02 Feces/Stool Salmonella/Shigella Culture - Final
No Salmonella, Shigella, Aeromonas or Plesiomonas species
isolated.
06/09/25 04:02 Feces/Stool Campylobacter Culture - Final
No Campylobacter species isolated.
06/09/25 04:02 Feces/Stool Shiga Toxin Test - Final
No E. coli Shiga Toxin 1 or 2 detected.
06/08/25 17:29 Sputum Respiratory Culture - Final
Usual Respiratory Maria De Jesus
06/08/25 17:29 Sputum Gram Stain - Final
Diagnostic Testing:
Physical Exam
-
HEENT: Normocephalic, Anicteric and Moist Mucous Membranes
Cardiovascular: S1/S2 and Regular Rhythm
Respiratory: Clear and Non-Labored Respirations
GI: Soft, Non Distended and Non Tender
Neurology: Awake, Alert, Oriented and No Motor Deficits
Skin: Warm, Dry and Good Color
General: Comfortable and Other (NAD)
Assessment
-
Patient is a 59-year-old male with history of lung cancer status post recent lobectomy on chemotherapy, hypertension, hyperlipidemia who presents to the emergency department for evaluation of generalized weakness, confusion and syncope at home. Had
temp 100.4F and had diarrhea at home. Patient recently diagnosed with lung CA, underwent left sided lobectomy on 04/15/2025, and had first dose of chemotherapy on Sunday, 3 days ago.
Was noted to be hyponatremic, CT showing RLL concerning for pneumonia. Ordered IV ceftriaxone and azithromycin. Admitting for further management 06/08/25. CT showing nodules that are concerning for infection vs malignancy. We are consulted for
evaluation.
RLL PNA on CT
New RML nodule
Lung adenocarcinoma s/p HARMEET resection
Hyponatremia
Diarrhea
Fever
Generalized weakness/syncope
Conditions present [facility]
Lumbar radiculopathy
Cervical radiculopathy
Osteoarthritis
Centrilobular emphysema
Hypertension
Bipolar disorder
Lung cancer s/p Left upper lobectomy, radical lymph node dissection
Chronic bronchitis
Torn meniscus right knee
Left hand surgery
Carpal tunnel release
Plan
No oxygen was needed on admission, currently saturating >90% on RA
Prior history of lung disease is noted including emphysema, former smoker
No prior PFTs for review
Suspect patient has new RML nodule that may indicate new malignant disease
Would need outpt PET for clarity on needing biopsy as this would be a contralateral location to original HARMEET lesion
Onc evaluation, but signed off 06/11, recommend OP FU
CXR/CT obtained indicating also RLL PNA
Agree with IV abx
Sputum culture if able
Prior ECHO results are reviewed indicating normal EF
Does not appear to be in CHF
Diarrhea and weakness following chemotx
IVFs and supportive care
Follow Na
Imodium PRN
Will need outpatient pulmonary evaluation in our office for PFTs and 6MWT
Follows with Dr Bee as OP
Reviewed with patient
Risk factors assessed for underlying sleep disordered breathing also noted, recommend outpatient PSG/sleep evaluation
We will follow
Diagnostic Data
Chest X-Ray: 06/13/25-Right lower lobe pneumonia. Recommend radiographic follow-up to resolution.
06/08/25- Status post left upper lobectomy with postsurgical changes. The lungs appear slightly hypoinflated but clear. No evidence for pulmonary edema or pleural effusion.
CT Scan: CHEST 06/10/25- Status post left upper lobectomy. Focal area of parenchymal airspace opacity within the right lower lobe as described, very likely representing pneumonia. Small focus of groundglass pneumonitis in the anterolateral and
inferior right upper lobe. There is a nodular density in the superior aspect of the right middle lobe, slightly increased from CT scan of January 28, 2025. Follow-up CT of the chest is recommended after treatment for pneumonia to assess for any
interval change in this right middle lobe nodule. With increasing size of right middle lobe nodule, concern is raised for neoplasia/bronchogenic carcinoma. Small pericardial effusion.
Echo: 08/06/24- Normal left ventricular size and systolic function. No regional wall motion abnormalities are seen. LV ejection fraction is 60% by Freeman's method of discs. Mild concentric left ventricular hypertrophy. Normal diastolic function.
Normal right ventricular size and function. Mild tricuspid regurgitation. Estimated pulmonary artery pressure of 25-28 mmHg, assuming a right atrial pressure of 3 mmHg. Aortic sclerosis without stenosis.
Compared to the previous echo 08/19/2020, there is no significant change.
PFT's:
Reports and relevant images were personally reviewed.
Total time spent on this consultation __75__ minutes which includes review of history, physical exam, medications, laboratory data, personal review of imaging, extensive review of outpatient records, discussion with care team and respiratory therapy.
--- NOTE | 2025-06-13 12:55 | W.PN.HOSP.TC ---
Addendum entered and electronically signed by Jessica Cruz MD 06/13/25 15:54:
I saw and evaluated the patient independently. I reviewed the resident�s note and agree with findings and plan as documented by Dr. Rivera.
GENERAL: well developed, well nourished, male in no apparent distress
HEENT: NC/AT
HEART: regular rate and rhythm, +S1, +S2
LUNGS : rhonchi bilaterally
ABDOM: soft, nontender, nondistended, + bowel sounds
EXT: no cyanosis, clubbing, or edema
NEUROLOGIC: grossly intact
sepsis (POA) with Metabolic encephalopathy--likely due to acute hypoxia secondary to pneumonia (confirmed by CT of chest)--O2 to off--change rocephin/zithromax to vanco/zosyn to Unasyn--apprec ID/ONC ---cultures all negative--restarted losartan
Generalized weakness --likely secondary to pneumonia-- Physical therapy has been consulted--improving
Hyponatremia--likely volume depletion as cause--apprec renal-- IVF stopped--follow BMP--apprec renal--s/p samsca without result--now on 3% NaCl
black (per pt) heme positive stool--HGB stable--apprec GI--add IV PPI--no scopes at this time
Lung cancer--s/p recent lobectomy--started on chemo- [facility], apprec input
Diarrhea-- stool culture negative, full liquid diet, advance as tolerated--heme positive stool--HGB stable--apprec GI
Essential Hypertension--Metoprolol and losartan to be continued based on blood pressure
DVT proph--subcutaneous Lovenox
code status--Full code
Original Note:
Today's Communication/Plan
-
Continue antibiotics
Pulmonology consult
Replete potassium
Repeat H&H in afternoon
Assessment / Plan
Assessment / Plan
59-year-old male with a past medical history of lung cancer status post lobectomy and chemotherapy, hypertension, hyperlipidemia, PTSD, bipolar disorder who presented with generalized weakness and confusion for the past few days. Patient had a
lobectomy performed on 05/06, and received first dose of chemotherapy on 06/05/2025. Since receiving the first dose of chemotherapy patient has had fatigue, nausea, more than 10 episodes of diarrhea per day. He denies vomiting, dysuria,
hematuria. At the time of admission, patient had hyponatremia at 125 with concerns of pneumonia. Patient was started on 3 L of oxygen at the time of presentation but has slowly weaned off to as needed.
# Sepsis secondary to pneumonia with metabolic encephalopathy
� CXR negative for pneumonia, but CT chest revealed pneumonia
- ID consulted and following : MRSA screen negative-vancomycin was discontinued. Patient switched from Zosyn to Unasyn 3 g every 6 hours.
- TSH 0.03 however free T4 1.15 wnl. Random cortisol elevated in setting of stress helping rule out adrenal insufficiency.
- Lactic acid and ammonia within normal limits. Monitor possible altered mental status.
# Nodular density in superior aspect of right middle lobe increased in size from 01/28/2025 CT
- Given persistent hyponatremia, symptoms, appreciate pulm for evaluation of nodule
- Consider colindres scanning as patient's symptoms persist concerning for paraneoplastic etiology
# Hypokalemia
- resolved
# Hyponatremia -likely due to dehydration
- Nephrology following: Samsca x1 given no response. s/p 1x 3% NS sodium > today 130.
# New onset DM2
- HgA1c 6.6
- Diabetic nurse practitioner consult
- Cont SSI
#Generalized weakness
- Physical therapy following
# GI bleed
# Diarrhea
- Hb stable 13.8 >12.3 - monitor H&H
- GI consulted: can consider OP EGD if symptoms persist
- Okay for regular diet
- Continue PPI twice daily and Tums as needed
- Given Imodium liquid 2 Mg p.o. every 3 hours as needed
# History of drug abuse
- The patient was given oxycodone, but symptoms still persist. Doubt opiate withdrawals.
# History of bipolar disorder, PTSD
- Offered patient the opportunity to consult psychiatry but patient denied.
- He is currently not on any psychiatry medications. Patient states he does not need any psychiatric medications or therapy currently.
# Lung cancer
- Oncology saw patient. They recommend continuing supportive care and monitor status.
# Hypertension
- Metoprolol and losartan to be continued based on blood pressure
DVT prophylaxis subcutaneous Lovenox
Full code
Anticipated Discharge: > 48 hours
Subjective/Interval History
-
Date of Service: June 13, 2025
Continues to have chills overnight. Complains of bridgette sputum. Slight headache that comes on and off. More awake and arousable this a.m. than yesterday. Denies any pounding headache or severe neck pain outside of the ordinary for him. He is
also complaining that he does not want to eat food because he does not have enough fluid to wash it down. Denies any difficulty swallowing or throat pain. He also complains of ongoing dark diarrhea.
Objective Data
-
Labs:
Laboratory Results
06/13/25
07:55
WBC 7.7
Hgb 12.3 L
Hct 35.5 L
Plt Count 215
Sodium 130 L
Potassium 3.5
Chloride 93 L
Carbon Dioxide 31 H
BUN 19
Creatinine 1.1
Glucose 121 H
Calcium 8.5
Total Bilirubin 0.8
AST 52
ALT 61 H
Alkaline Phosphatase 71
Vital Signs:
Vital Signs
Temp Pulse Resp BP Pulse Ox
98.1 F 72 20 120/77 98
06/13/25 07:00 06/13/25 08:57 06/13/25 07:00 06/13/25 08:57 06/13/25 07:00
I&O
06/12/25 06/13/25 06/14/25
06:59 06:59 06:59
Intake Total 1780 / 1780 1080 / 1080
Output Total 1675 / 1675
Balance 105 / 105 1080 / 1080
Review of Systems
-
History Source: Patient
Constitutional: Reports No Appetite, Fatigue, Sleep Disturbance and Chills
EENT: Reports No Symptoms Reported
Respiratory: Reports Cough and Pleurisy
Cardiac: Reports No Symptoms
Abdomen/GI: Reports No Symptoms
Genitourinary: Reports No Symptoms
Neuro: Reports Headache
Hematologic / Lymphatic: Reports No Symptoms
Physical Exam
-
General: Appears in Distress, Pain and Chills
HEENT: Normocephalic and Neck Non Tender
Respiratory: Rales
Cardiac: Regular Rhythm and S1/S2
GI: Soft, Nontender, Nondistended and Normal Bowel Sounds
Musculoskeletal: No Cyanosis and No Edema
Skin: Warm and Dry
Neuro: AO x 3
Psych: Anxious
[2025-06-13 13:10] LABS: Urine Character Clear (Clear)
[2025-06-13 14:27] LABS: Urine Red Blood Cell 0-2 /HPF (0-2); Urine Squamous Cell None seen /LPF (Few); Urine White Cell None Seen /HPF (0-5)
--- NOTE | 2025-06-13 15:10 | W.PN.ID1 ---
Date of Service
Date of Service: June 13, 2025
Today's Communication
Continue Unasyn, Azithromycin for now.
Assessment / Plan
Right lower lobe infiltrate, suspected PNA
Leukocytosis; resolved
Fever resolved
Hyponatremia
Stage IIIb NSCLCa
Lumbar radiculopathy
Cervical radiculopathy
Osteoarthritis
Emphysema
HTN
Bipolar disease
Chronic bronchitis
Recommendations:
MRSA screen negative; vancomycin previously discontinued.
Continue Unasyn 3 gm IV q.6 hours
Repeat sputum culture pending.
Monitor white count and temperature curve.
Continue Azithromycin for atypical coverage.
At time of dc transition Unasyn to Augmentin 875mg po bid plus azithromycin 500m po qd to complete 7 days total course.
Chief Complaint
-: Pneumonia
Subjective / Review of Systems
Feels same.
Vital Signs / Physical Exam
Vital Signs
Vital Signs
Temp Pulse Resp BP Pulse Ox
98.1 F 72 20 120/77 98
06/13/25 07:00 06/13/25 08:57 06/13/25 07:00 06/13/25 08:57 06/13/25 07:00
Physical Exam
Constitutional: No Acute Distress, Comfortable and Non-toxic
Eyes: No Conjunctival Hemorrhage and Sclera Anicteric
Cardiovascular: S1/S2; Negative S3/S4
Pulmonary: Non Labored and Other (Crackles right base)
Gastrointestinal: Soft, Non Tender and Non Distended
Extremities: Negative Edema
Neurological: Awake and Alert
Objective Data
Lab Data
Lab Results
06/13/25 07:55
06/13/25 07:55
Estimated Creat Clear 71 ml/min 06/13/25 07:55
Lactic Acid 2.0 mmol/L (0.7-2.0) 06/12/25 12:41
Total Bilirubin 0.8 mg/dl (0.2-1.3) 06/13/25 07:55
AST 52 U/L (17-59) 06/13/25 07:55
ALT 61 U/L (0-50) H 06/13/25 07:55
Alkaline Phosphatase 71 U/L (38-126) 06/13/25 07:55
Most recent labs reviewed.
Micro Results:
06/13/25 14:41 Blood Culture - Pending
Blood/Venous
06/13/25 12:44 Respiratory Culture - Pending
Sputum Gram Stain - Pending
06/13/25 12:42 Legionella Culture - Pending
Sputum
06/08/25 12:19 Blood Culture - Final
Blood/Venous No Growth - Final Report
06/13/25 12:26 Blood Culture - Pending
Blood/Venous
06/11/25 18:05 Respiratory Culture - Preliminary
Sputum Usual Respiratory Maria De Jesus
Gram Stain - Preliminary
06/08/25 16:24 Blood Culture - Preliminary
Blood/Venous No Growth in 4 days- Final report to follow
06/11/25 11:39 Nasal Screen MRSA (PCR) - Final
Nose MRSA not detected - performed by PCR methodology.
06/09/25 04:02 Salmonella/Shigella Culture - Final
Feces/Stool No Salmonella, Shigella, Aeromonas or Plesiomonas species
isolated.
Campylobacter Culture - Final
No Campylobacter species isolated.
Shiga Toxin Test - Final
No E. coli Shiga Toxin 1 or 2 detected.
06/08/25 17:29 Respiratory Culture - Final
Sputum Usual Respiratory Maria De Jesus
Gram Stain - Final
06/09/25 10:41 C. difficile GDH Antigen & Toxins - Final
Feces/Stool Negative for toxigenic C.difficile
06/09/25 04:03 Stool Leukocytes - Final
Feces/Stool
06/08/25 20:47 Legionella Urinary Antigen - Final
Urine Negative for Legionella pneumophila Serogroup 1 antigen.
A negative result does not rule out the possiblity of
Legionella infection due to other serogroups or species of
Legionella. Clinical correlation is recommended.
Streptococcus pneumoniae Antigen (M - Final
Negative for Streptococcus pneumoniae antigen.
A negative result does not exclude infection with
Streptococcus pneumoniae. Clinical correlation is
recommended.
06/08/25 12:19 Influenza Types A & B (JAMAL) - Final
Nasal Swab Negative for Influenza A & B, NAAT
Negative results must be combined with clinical observations
and patient history.
Nucleic Acid Amplification test (NAAT)performed on the
[employer] platform.
Imaging:
06/13/25 CXR:Right lower lobe pneumonia.
06/10/2025 CT chest with contrast: status post left upper lobectomy. Focal area of parenchymal opacity within the right lower lobe suspicious for pneumonia. Small focus of groundglass pneumonitis in the anterior lateral and inferior right upper
lobe. A nodular density in the superior aspect of the right middle lobe is slightly increased from a CT in January 2025. Please see the full dictation for additional detail. Film personally reviewed.
[2025-06-13 15:39] VITALS: BP 116/75
[2025-06-13 16:54] LABS: Glucose - Point of Care 126 mg/dl (70-99)
[2025-06-13 17:37] LABS: Hematocrit 34.7 % (39.0-52.0); Hemoglobin 12.3 g/dL (13.0-18.0)
[2025-06-13] MEDS: LOVENOX 40 MG SC (17:46)
[2025-06-13 20:47] VITALS: BP 100/67
[2025-06-13] MEDS: TYLENOL 650 MG PO (21:01)
[2025-06-13] MEDS: TUMS CHEWABLE TABLET 400 MG PO (21:01)
[2025-06-13] MEDS: ROXICODONE 5 MG PO (21:02)
[2025-06-13] MEDS: MELATONIN 5 MG PO (21:03)
[2025-06-13] MEDS: LOPRESSOR PO (21:03)
[2025-06-13] MEDS: COZAAR PO (21:04)
[2025-06-13 21:39] LABS: Glucose - Point of Care 144 mg/dl (70-99)
[2025-06-13 23:00] VITALS: BP 113/70
[2025-06-14] MEDS: UNASYN IV ×3 (00:44→12:27)
[2025-06-14 07:36] VITALS: BP 128/76
[2025-06-14 07:46] LABS: Hematocrit 36.2 % (39.0-52.0); Hemoglobin 12.6 g/dL (13.0-18.0); Mean Corp Hgb Conc. 34.8 g/dL (33.0-37.0); Mean Corpuscular Volume 83.8 fL (80.0-94.0); Platelet Count 262 10^3/uL (130-400); Red Cell Dist. Width 14.0 % (11.5-14.5)
[2025-06-14 07:59] LABS: ALT (SGPT) 90 U/L (0-50); AST (SGOT) 63 U/L (17-59); Albumin 3.4 g/dl (3.5-5.0); Alkaline Phosphatase 84 U/L (38-126); Blood Urea Nitrogen 19 mg/dl (9-20); Calcium 8.8 mg/dl (8.4-10.2); Carbon Dioxide 30 mmol/L (22-30); Chloride 96 mmol/L (98-107); Estimated Creatinine Clearance 87 ml/min; Glucose 117 mg/dl (70-99); Magnesium 1.9 mg/dl (1.6-2.3); Potassium 2.9 mmol/L (3.5-5.1); Sodium 135 mmol/L (135-145); Total Protein 6.3 g/dl (6.3-8.2); eGFR > 60.00
[2025-06-14 08:00] LABS: Glucose - Point of Care 103 mg/dl (70-99)
--- NOTE | 2025-06-14 08:36 | W.PN.HOSP.TC ---
Addendum entered and electronically signed by Jessica Cruz MD 06/14/25 15:56:
I saw and evaluated the patient independently. I reviewed the resident�s note and agree with findings and plan as documented by Dr. Rivera.
GENERAL: well developed, well nourished, male in no apparent distress
HEENT: NC/AT
HEART: regular rate and rhythm, +S1, +S2
LUNGS : rhonchi bilaterally
ABDOM: soft, nontender, nondistended, + bowel sounds
EXT: no cyanosis, clubbing, or edema
NEUROLOGIC: grossly intact
sepsis (POA) with Metabolic encephalopathy--likely due to acute hypoxia secondary to pneumonia (confirmed by CT of chest)--O2 to off--change rocephin/zithromax to vanco/zosyn to Unasyn to cefepime and finished 7 days of zithromax--apprec ID/ONC
---cultures all negative, CT A/P because diarrhea shows no evidence of acute abnormality in abdomen or pelvis, still shows pna right base--restarted losartan
Generalized weakness --likely secondary to pneumonia-- Physical therapy has been consulted--improving
Hyponatremia--likely volume depletion as cause--apprec renal-- IVF stopped--follow BMP--apprec renal--s/p samsca without result--now on 3% NaCl--TSH and random cortisol WNL
hypokalemia--replete--magnesium around 1.9-2.2
black (per pt) heme positive stool--HGB stable--apprec GI--add IV PPI--no scopes at this time
Lung cancer--s/p recent lobectomy--started on chemo- [facility], apprec input
Diarrhea-- stool culture negative, full liquid diet, advance as tolerated--heme positive stool--HGB stable--apprec GI
Essential Hypertension--Metoprolol and losartan to be continued based on blood pressure
DVT proph--subcutaneous Lovenox
code status--Full code
Original Note:
Today's Communication/Plan
-
Ab/pelvis CT
Cefepime
Replete K
Assessment / Plan
Assessment / Plan
59-year-old male with a past medical history of lung cancer status post lobectomy and chemotherapy, hypertension, hyperlipidemia, PTSD, bipolar disorder who presented with generalized weakness and confusion for the past few days. Patient had a
lobectomy performed on 05/06, and received first dose of chemotherapy on 06/05/2025. Since receiving the first dose of chemotherapy patient has had fatigue, nausea, more than 10 episodes of diarrhea per day. He denies vomiting, dysuria,
hematuria. At the time of admission, patient had hyponatremia at 125 with concerns of pneumonia. Patient was started on 3 L of oxygen at the time of presentation but has slowly weaned off to as needed.
# Sepsis secondary to pneumonia with metabolic encephalopathy
� CXR negative for pneumonia, but CT chest revealed pneumonia
- ID consulted and following : MRSA screen negative-vancomycin was discontinued. Unasyn broadened to cefepime per ID as febrile overnight. Azithromycin d/c as completed 7 day coarse.
- Repeat sputum and blood cultures pending
- Lactic acid and ammonia within normal limits. Monitor possible altered mental status.
# Nodular density in superior aspect of right middle lobe increased in size from 01/28/2025 CT
- Recommendation for f/u outpatient for possible biopsy and PET per pulm
- Ab/pelvic CT to evaluate possible mets and source of fever despite antibiotics overnight
# Hypokalemia -likely secondary to GI losses
- replete as needed
- Mg wnl
# Hyponatremia -likely due to dehydration
- Nephrology following: Samsca x1 given no response. s/p 1x 3% NS sodium > 130 >135 .
# DM2
- HgA1c 6.6 - patient newly diagnosed prior to admission and was aware
- Diabetic nurse practitioner consult
- Cont SSI
#Generalized weakness
- Physical therapy following
# GI bleed
# Diarrhea
- Hb stable - monitor H&H
- GI consulted: can consider OP EGD if symptoms persist
- Okay for regular diet
- Continue PPI twice daily and Tums as needed
- Given Imodium liquid 2 Mg p.o. every 3 hours as needed
# History of drug abuse
- The patient was given oxycodone, but symptoms still persist. Doubt opiate withdrawals.
# History of bipolar disorder, PTSD
- Interested in meeting with psychiatry now - previously refused
- Psych appreciated
# Lung cancer
- Oncology saw patient and later signed off
- Pulm recommends outpatient PET and possible biopsy
# Hypertension
- Metoprolol and losartan to be continued based on blood pressure
DVT prophylaxis subcutaneous Lovenox
Full code
Anticipated Discharge: > 48 hours
Subjective/Interval History
-
Date of Service: June 14, 2025
Complaining of fever and chills overnight. Continues to have bridgette per sputum production. Headache is resolved.
Objective Data
-
Labs:
Laboratory Results
06/14/25
07:24
WBC 5.4
Hgb 12.6 L
Hct 36.2 L
Plt Count 262 D
Sodium 135
Potassium 2.9 L
Chloride 96 L
Carbon Dioxide 30
BUN 19
Creatinine 0.9
Glucose 117 H
Calcium 8.8
Total Bilirubin 1.1
AST 63 H
ALT 90 H
Alkaline Phosphatase 84
Vital Signs:
Vital Signs
Temp Pulse Resp BP Pulse Ox
97.6 F 68 16 128/76 98
06/14/25 07:36 06/14/25 07:36 06/14/25 07:36 06/14/25 07:36 06/14/25 07:36
I&O
06/13/25 06/14/25 06/15/25
06:59 06:59 06:59
Intake Total 1080 / 1080 1210 / 1210
Balance 1080 / 1080 1210 / 1210
Review of Systems
-
History Source: Patient
Respiratory: Reports Cough and Hemoptysis
Cardiac: Reports No Symptoms
Abdomen/GI: Reports Nausea and Diarrhea
Skin: Reports No Symptoms
Neuro: Reports No Symptoms
Physical Exam
-
General: Well Developed and No Apparent Distress
HEENT: Normocephalic
Respiratory: Rales (RRL, improved from yesterday )
Cardiac: Regular Rhythm and S1/S2
GI: Soft, Nontender, Nondistended and Normal Bowel Sounds
Musculoskeletal: No Cyanosis and No Edema
Neuro: AO x 3
Psych: Calm
[2025-06-14] MEDS: NOVOLOG FLEXPEN-LOW RESISTANCE SC ×2 (09:10→12:23)
[2025-06-14] MEDS: THERAGRAN 1 TABLET PO (09:19)
[2025-06-14] MEDS: MUCINEX 600 MG PO ×2 (09:19→21:28)
[2025-06-14] MEDS: KCL 40 MEQ PO (09:19)
[2025-06-14] MEDS: ZITHROMAX 500 MG PO (09:19)
[2025-06-14] MEDS: LOPRESSOR 12.5 MG PO ×2 (09:19→21:28)
[2025-06-14] MEDS: NSS (PRESERVATIVE FREE) 10 ML IV ×2 (09:20→21:29)
[2025-06-14] MEDS: KCL 270 MEQ IV (09:20)
[2025-06-14] MEDS: FOLVITE 1 MG PO (09:20)
[2025-06-14] MEDS: PROTONIX IV 40 MG IV ×2 (09:20→21:28)
[2025-06-14] MEDS: TUMS CHEWABLE TABLET 400 MG PO (09:35)
[2025-06-14] MEDS: OMNIPAQUE 50 ML PO (10:43)
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
[2025-06-14 11:52] LABS: Glucose - Point of Care 150 mg/dl (70-99)
--- NOTE | 2025-06-14 12:23 | W.PN.NEPH.PH ---
Today's Communication / Plan
-
replace k and follow labs
Assessment/Plan
-
IMP:
Metabolic encephalopathy/acute hypoxia likely secondary to pneumonia
Sepsis as evidenced
Generalized weakness secondary to pneumonia
n/diarrhea pot chemo
Hyponatremia likely hypovolemic
Recent lung cancer with last chemo on 06/05
Essential hypertension
HLD
chr bronchitis
Plan:
sodium normal today with FR
hypokalemia-?GI loss
check U k and cr
replace k
seem he is trying to comply with FR
follow labs
-
-
Date of Service: June 14, 2025
CC / HPI / ROS
-
Chief Complaint:
hyponatremia
History of Present Illness:
Na better at 135, k low 2.9
BP stable
no fever
Review of Systems:
no CP/SOB
no n/v, decreased appetite
Labs
-
Labs:
WBC 5.4 10^3/uL (4.8-10.8) 06/14/25 07:24
RBC 4.32 10^6/uL (4.70-6.10) L 06/14/25 07:24
Hgb 12.6 g/dL (13.0-18.0) L 06/14/25 07:24
Hct 36.2 % (39.0-52.0) L 06/14/25 07:24
Plt Count 262 10^3/uL (130-400) D 06/14/25 07:24
Sodium 135 mmol/L (135-145) 06/14/25 07:24
Potassium 2.9 mmol/L (3.5-5.1) L 06/14/25 07:24
Chloride 96 mmol/L (98-107) L 06/14/25 07:24
Carbon Dioxide 30 mmol/L (22-30) 06/14/25 07:24
BUN 19 mg/dl (9-20) 06/14/25 07:24
Creatinine 0.9 mg/dL (0.7-1.3) 06/14/25 07:24
eGFR > 60.00 06/14/25 07:24
Glucose 117 mg/dl (70-99) H 06/14/25 07:24
Calcium 8.8 mg/dl (8.4-10.2) 06/14/25 07:24
Phosphorus 3.5 mg/dl (2.5-4.5) 06/14/25 07:24
Albumin 3.4 g/dl (3.5-5.0) L 06/14/25 07:24
Physical Exam
-
Vital Signs:
Vital Signs
Temp Pulse Resp BP Pulse Ox
97.6 F 68 16 128/76 98
06/14/25 07:36 06/14/25 07:36 06/14/25 07:36 06/14/25 07:36 06/14/25 07:36
Cardiovascular:: Regular rate and rhythm
Respiratory:: Bilateral: CTA
Lung Excursion:: Normal
Abdomen:: Nontender and Soft
Bowel Sounds:: Normal
Extremity Edema:: None: Bilateral:
Emmanuel Catheter: No
--- NOTE | 2025-06-14 13:42 | W.PN.ID1 ---
Date of Service
Date of Service: June 14, 2025
Today's Communication
Broaden Unasyn to cefepime 2g IV q8h
DC Azithromycin - completed 7day course.
Assessment / Plan
Right lower lobe infiltrate, suspected PNA
Leukocytosis; resolved
Fever persists
Diarrhea - C. diff neg, stool cx neg
Stage IIIb NSCLCa s/p JOHNNIE lobectomy and first cycle chemo 06/05
Lumbar radiculopathy
Cervical radiculopathy
Osteoarthritis
Emphysema
HTN
Bipolar disease
Chronic bronchitis
Recommendations:
MRSA screen negative; vancomycin previously discontinued.
Repeat sputum culture: resp julia
For CT a/p
Repeat blood cx pending
Broaden Unasyn to cefepime 2g IV q8h
DC Azithromycin - completed 7day course.
Monitor white count and temperature curve.
Chief Complaint
-: Pneumonia
Subjective / Review of Systems
Reports still cough brown sputum. Still with diarrhea. Appetite poor.
He is overwhelmed with health issues.
Vital Signs / Physical Exam
Vital Signs
Vital Signs
Temp Pulse Resp BP Pulse Ox
97.6 F 68 16 128/76 98
06/14/25 07:36 06/14/25 07:36 06/14/25 07:36 06/14/25 07:36 06/14/25 07:36
Selected Entries
06/13/25
20:47
Temp 100.4 F H
Physical Exam
Constitutional: No Acute Distress and Comfortable
Head: Other (No frontal or maxillary sinus tenderness)
Cardiovascular: Regular Rate and S1/S2
Pulmonary: Rales (right base crackles)
Gastrointestinal: Soft, Non Tender, Non Distended and Normal Bowel Sounds
Genito-Urinary: Negative CVA Tenderness
Extremities: Negative Edema
Neurological: AO x 3
Objective Data
Lab Data
Lab Results
06/14/25 07:24
06/14/25 07:24
Estimated Creat Clear 87 ml/min 06/14/25 07:24
Lactic Acid 2.0 mmol/L (0.7-2.0) 06/12/25 12:41
Total Bilirubin 1.1 mg/dl (0.2-1.3) 06/14/25 07:24
AST 63 U/L (17-59) H 06/14/25 07:24
ALT 90 U/L (0-50) H 06/14/25 07:24
Alkaline Phosphatase 84 U/L (38-126) 06/14/25 07:24
Most recent labs reviewed.
Micro Results:
06/13/25 12:26 Blood Culture - Preliminary
Blood/Venous No Growth in 24 hours- Final report to follow
06/11/25 18:05 Respiratory Culture - Final
Sputum Usual Respiratory Julia
Gram Stain - Final
06/13/25 12:44 Respiratory Culture - Preliminary
Sputum Usual Respiratory Julia
Gram Stain - Preliminary
06/08/25 16:24 Blood Culture - Final
Blood/Venous No Growth - Final Report
06/13/25 14:41 Blood Culture - Pending
Blood/Venous
06/13/25 12:42 Legionella Culture - Pending
Sputum
06/08/25 12:19 Blood Culture - Final
Blood/Venous No Growth - Final Report
06/11/25 11:39 Nasal Screen MRSA (PCR) - Final
Nose MRSA not detected - performed by PCR methodology.
06/09/25 04:02 Salmonella/Shigella Culture - Final
Feces/Stool No Salmonella, Shigella, Aeromonas or Plesiomonas species
isolated.
Campylobacter Culture - Final
No Campylobacter species isolated.
Shiga Toxin Test - Final
No E. coli Shiga Toxin 1 or 2 detected.
06/08/25 17:29 Respiratory Culture - Final
Sputum Usual Respiratory Julia
Gram Stain - Final
06/09/25 10:41 C. difficile GDH Antigen & Toxins - Final
Feces/Stool Negative for toxigenic C.difficile
06/09/25 04:03 Stool Leukocytes - Final
Feces/Stool
06/08/25 20:47 Legionella Urinary Antigen - Final
Urine Negative for Legionella pneumophila Serogroup 1 antigen.
A negative result does not rule out the possiblity of
Legionella infection due to other serogroups or species of
Legionella. Clinical correlation is recommended.
Streptococcus pneumoniae Antigen (M - Final
Negative for Streptococcus pneumoniae antigen.
A negative result does not exclude infection with
Streptococcus pneumoniae. Clinical correlation is
recommended.
06/08/25 12:19 Influenza Types A & B (JAMAL) - Final
Nasal Swab Negative for Influenza A & B, NAAT
Negative results must be combined with clinical observations
and patient history.
Nucleic Acid Amplification test (NAAT)performed on the
[employer] platform.
Imaging:
06/13/25 CXR:Right lower lobe pneumonia.
06/10/2025 CT chest with contrast: status post left upper lobectomy. Focal area of parenchymal opacity within the right lower lobe suspicious for pneumonia. Small focus of groundglass pneumonitis in the anterior lateral and inferior right upper
lobe. A nodular density in the superior aspect of the right middle lobe is slightly increased from a CT in January 2025. Please see the full dictation for additional detail. Film personally reviewed.
Care Review
Plan reviewed with: Physician (Dr. Cruz)
--- NOTE | 2025-06-14 13:42 | W.PN.PUL3 ---
Today's Communication / Plan
-
Ongoing abx per team for PNA, can repeat imaging in next 48-72 hours
Diarrhea ongoing, consider imodium or GI eval
Replete K per team
Encouraged OOB/PT, IS
Assessment
-
Patient is a 59-year-old male with history of lung cancer status post recent lobectomy on chemotherapy, hypertension, hyperlipidemia who presents to the emergency department for evaluation of generalized weakness, confusion and syncope at home. Had
temp 100.4F and had diarrhea at home. Patient recently diagnosed with lung CA, underwent left sided lobectomy on 04/15/2025, and had first dose of chemotherapy on Sunday, 3 days ago.
Was noted to be hyponatremic, CT showing RLL concerning for pneumonia. Ordered IV ceftriaxone and azithromycin. Admitting for further management 06/08/25. CT showing nodules that are concerning for infection vs malignancy. We are consulted for
evaluation.
RLL PNA on CT
New RML nodule
Lung adenocarcinoma s/p HARMEET resection
Hyponatremia
Diarrhea
Fever
Generalized weakness/syncope
Hypokalemia
Conditions present [employer]
Lumbar radiculopathy
Cervical radiculopathy
Osteoarthritis
Centrilobular emphysema
Hypertension
Bipolar disorder
Lung cancer s/p Left upper lobectomy, radical lymph node dissection
Chronic bronchitis
Torn meniscus right knee
Left hand surgery
Carpal tunnel release
Plan
No oxygen was needed on admission, currently saturating >90% on RA
Prior history of lung disease is noted including emphysema, former smoker
No prior PFTs for review
Suspect patient has new RML nodule that may indicate new malignant disease
Would need outpt PET for clarity on needing biopsy as this would be a contralateral location to original HARMEET lesion
Onc evaluation, but signed off 06/11, recommend OP FU
CXR/CT obtained indicating also RLL PNA
Agree with IV abx
Sputum culture if able
Can repeat chest imaging in next 48-72 hours
Prior ECHO results are reviewed indicating normal EF
Does not appear to be in CHF
Diarrhea and weakness following chemotx
IVFs and supportive care
Follow Na
Imodium PRN
Low K, supplementation per team
Will need outpatient pulmonary evaluation in our office for PFTs and 6MWT
Follows with Dr Bee as OP
Reviewed with patient
Risk factors assessed for underlying sleep disordered breathing also noted, recommend outpatient PSG/sleep evaluation
We will follow
Diagnostic Data
Chest X-Ray: 06/13/25-Right lower lobe pneumonia. Recommend radiographic follow-up to resolution.
06/08/25- Status post left upper lobectomy with postsurgical changes. The lungs appear slightly hypoinflated but clear. No evidence for pulmonary edema or pleural effusion.
CT Scan: CHEST 06/10/25- Status post left upper lobectomy. Focal area of parenchymal airspace opacity within the right lower lobe as described, very likely representing pneumonia. Small focus of groundglass pneumonitis in the anterolateral and
inferior right upper lobe. There is a nodular density in the superior aspect of the right middle lobe, slightly increased from CT scan of January 28, 2025. Follow-up CT of the chest is recommended after treatment for pneumonia to assess for any
interval change in this right middle lobe nodule. With increasing size of right middle lobe nodule, concern is raised for neoplasia/bronchogenic carcinoma. Small pericardial effusion.
Echo: 08/06/24- Normal left ventricular size and systolic function. No regional wall motion abnormalities are seen. LV ejection fraction is 60% by Freeman's method of discs. Mild concentric left ventricular hypertrophy. Normal diastolic function.
Normal right ventricular size and function. Mild tricuspid regurgitation. Estimated pulmonary artery pressure of 25-28 mmHg, assuming a right atrial pressure of 3 mmHg. Aortic sclerosis without stenosis.
Compared to the previous echo 08/19/2020, there is no significant change.
PFT's:
Reports and relevant images were personally reviewed.
Total time spent on this consultation __51__ minutes which includes review of history, physical exam, medications, laboratory data, personal review of imaging, extensive review of outpatient records, discussion with care team and respiratory therapy.
Subjective Data
-
Date of Service:
Date of Service: June 14, 2025
Chief Complaint: Pulmonary Follow Up
Subjective:
Remains stable on RA, ongoing diarrhea
No new complaints
Objective Data
Data Reviewed
Vital Signs / I&O / Oxygen:
Vital Signs
Temp Pulse Resp BP Pulse Ox
97.6 F 68 16 128/76 98
06/14/25 07:36 06/14/25 07:36 06/14/25 07:36 06/14/25 07:36 06/14/25 07:36
Intake and Output
06/13/25 06/14/25 06/15/25
06:59 06:59 06:59
Intake Total 1080 / 1080 1210 / 1210
Balance 1080 / 1080 1210 / 1210
SaO2 98
Nasal Cannula flow liters per 3
minute
Physical Exam
General: Comfortable and Other (NAD)
HEENT: Normocephalic, Anicteric and Moist Mucous Membranes
Cardiovascular: S1-S2 and Regular Rhythm
Respiratory: Clear and Non-Labored Respirations
GI: Soft, Non Distended and Non Tender
Neurology: Awake, Alert, Oriented and No Motor Deficits
Skin: Warm, Dry and Good Color
Labs/Micro/Reports
Lab Data
06/14/25 07:24
06/14/25 07:24
Microbiology
06/13/25 12:26 Blood/Venous Blood Culture - Preliminary
No Growth in 24 hours- Final report to follow
06/11/25 18:05 Sputum Respiratory Culture - Final
Usual Respiratory Maria De Jesus
06/11/25 18:05 Sputum Gram Stain - Final
06/13/25 12:44 Sputum Respiratory Culture - Preliminary
Usual Respiratory Maria De Jesus
06/13/25 12:44 Sputum Gram Stain - Preliminary
06/08/25 16:24 Blood/Venous Blood Culture - Final
No Growth - Final Report
06/08/25 12:19 Blood/Venous Blood Culture - Final
No Growth - Final Report
06/11/25 11:39 Nose Nasal Screen MRSA (PCR) - Final
MRSA not detected - performed by PCR methodology.
06/09/25 04:02 Feces/Stool Salmonella/Shigella Culture - Final
No Salmonella, Shigella, Aeromonas or Plesiomonas species
isolated.
06/09/25 04:02 Feces/Stool Campylobacter Culture - Final
No Campylobacter species isolated.
06/09/25 04:02 Feces/Stool Shiga Toxin Test - Final
No E. coli Shiga Toxin 1 or 2 detected.
[2025-06-14] MEDS: MAXIPIME 2000 MG IV ×2 (14:54→22:23)
[2025-06-14] MEDS: STERILE WATER FOR INJECTION 10 ML IV ×2 (14:55→22:35)
[2025-06-14 15:55] VITALS: BP 118/67
--- NOTE | 2025-06-14 16:59 | PTCARENOTE ---
Patient OOB to bathroom with a steady gait. Patient c/o chronic all over body aches, denies need for pain medication. Patient talks non stop and repeats himself frequently. RN attempted to discuss plan of care with patient, but he kept talking over
RN about multiple topics. Patient will not wear a gown, only underwear.
[2025-06-14 17:46] LABS: Glucose - Point of Care 183 mg/dl (70-99)
[2025-06-14] MEDS: LOVENOX 40 MG SC (18:00)
[2025-06-14] MEDS: NOVOLOG FLEXPEN-LOW RESISTANCE 1 UNITS SC (18:01)
[2025-06-14] MEDS: COZAAR 50 MG PO (21:28)
[2025-06-14] MEDS: MELATONIN 5 MG PO (21:29)
[2025-06-14] MEDS: ROXICODONE 5 MG PO (21:49)
[2025-06-14 22:30] LABS: Glucose - Point of Care 139 mg/dl (70-99)
[2025-06-14 23:00] VITALS: BP 107/65
[2025-06-15] MEDS: MAXIPIME 2000 MG IV ×3 (06:03→22:04)
[2025-06-15] MEDS: STERILE WATER FOR INJECTION 10 ML IV ×3 (06:03→22:05)
[2025-06-15 06:58] LABS: Hematocrit 34.8 % (39.0-52.0); Hemoglobin 12.2 g/dL (13.0-18.0); Mean Corp Hgb Conc. 35.1 g/dL (33.0-37.0); Mean Corpuscular Volume 81.9 fL (80.0-94.0); Platelet Count 301 10^3/uL (130-400); Red Cell Dist. Width 14.1 % (11.5-14.5)
[2025-06-15 07:28] LABS: Nucleated Red Blood Cells % 0 % (-)
[2025-06-15 07:31] VITALS: BP 133/78
--- NOTE | 2025-06-15 07:32 | W.PN.ONC2 ---
Today's Communication / Plan
-
OP follow up wtih Dr. Clifford 06/22, next cycle due 06/26
Impression
Impression
a/w acute hypoxic respiratory failure/sepsis
Stage IIb NSCLCa s/p left upper lobectomy April 2025, C1 cisplatin, alimta 06/05, no GCSF
RUL Pneumonia, influenza negative, Bcx NTD
Metabolic encephalopathy
Hyponatremia/hypokalemia
diarrhea, heme positive stool, Hx PUD, stool culture neg, c.diff neg
hep C with prior interferon therapy early
Plan
Plan
hyponatremia and electrolytes s/p tolvaptan per nephrology
GI following heme positive stool, hgb 12.2 gd/L
ID following
continue supportive care
optimize performance status to continue chemotherapy. If needs SNF at sd then will hold antineoplastic therapy until performance status allows for return home.
Subjective/Objective
Subjective
diarrhea
using oxycodone prn pain
afebrile, room air
Vital Signs:
Vital Signs
Temp Pulse Resp BP Pulse Ox
97.7 F 64 16 133/78 97
06/15/25 07:31 06/15/25 07:31 06/15/25 07:31 06/15/25 07:31 06/15/25 07:31
Lab Results:
Laboratory Data
WBC 4.6 10^3/uL (4.8-10.8) L 06/15/25 06:23
Hgb 12.2 g/dL (13.0-18.0) L 06/15/25 06:23
Plt Count 301 10^3/uL (130-400) 06/15/25 06:23
eGFR Cancelled 06/15/25 06:23
Physical Exam
HEENT: Moist Mucous Membranes; No Jaundice
Pulmonary: Other (unlabored)
GI: Soft
Extremities: Pulses Present
[2025-06-15 08:13] LABS: Glucose - Point of Care 100 mg/dl (70-99)
--- NOTE | 2025-06-15 08:51 | W.PN.UPDATE ---
Addendum entered and electronically signed by Bhavik Lee MD 06/15/25 15:09:
Total time spent on d/c = 34 min. This included today's physical exam, progress note, review of laboratory and diagnostic data, preparation of discharge documents and prescriptions, and discussions about the pt's hospital course and discharge plan
with the patient and other medical laboratory technicians involved in the patient's care.
Original Note:
Update Note
Progress Note Update
I saw and evaluated the patient. I reviewed the resident�s note and agree with findings and plan as documented in the resident�s note.
Pt without new complaints.
Gen: NAD, Awake and alert
Eyes: EOMI, PERRLA, no scleral icterus.
Neck: supple.
CV: RRR, +S1/S2, no m/r/g.
Resp: CTAB, no rales, wheezes, or rhonchi.
Abd: +BS, soft, NT, ND
Skin: No rashes.
Neuro: CN 2-12 intact, non-focal.
Psych: Normal mood and affect.
06/13/25 14:41 Blood/Venous Blood Culture - Preliminary
No Growth in 24 hours- Final report to follow
06/13/25 12:26 Blood/Venous Blood Culture - Preliminary
No Growth in 24 hours- Final report to follow
06/11/25 18:05 Sputum Respiratory Culture - Final
Usual Respiratory Maria De Jesus
06/11/25 18:05 Sputum Gram Stain - Final
06/13/25 12:44 Sputum Respiratory Culture - Preliminary
Usual Respiratory Maria De Jesus
06/13/25 12:44 Sputum Gram Stain - Preliminary
06/08/25 16:24 Blood/Venous Blood Culture - Final
No Growth - Final Report
06/08/25 12:19 Blood/Venous Blood Culture - Final
No Growth - Final Report
06/11/25 11:39 Nose Nasal Screen MRSA (PCR) - Final
MRSA not detected - performed by PCR methodology.
06/09/25 04:02 Feces/Stool Salmonella/Shigella Culture - Final
No Salmonella, Shigella, Aeromonas or Plesiomonas species
isolated.
06/09/25 04:02 Feces/Stool Campylobacter Culture - Final
No Campylobacter species isolated.
06/09/25 04:02 Feces/Stool Shiga Toxin Test - Final
No E. coli Shiga Toxin 1 or 2 detected.
06/08/25 17:29 Sputum Respiratory Culture - Final
Usual Respiratory Maria De Jesus
06/08/25 17:29 Sputum Gram Stain - Final
06/09/25 10:41 Feces/Stool C. difficile GDH Antigen & Toxins - Final
Negative for toxigenic C.difficile
06/09/25 04:03 Feces/Stool Stool Leukocytes - Final
06/08/25 20:47 Urine Legionella Urinary Antigen - Final
Negative for Legionella pneumophila Serogroup 1 antigen.
A negative result does not rule out the possiblity of
Legionella infection due to other serogroups or species of
Legionella. Clinical correlation is recommended.
06/08/25 20:47 Urine Streptococcus pneumoniae Antigen (M - Final
Negative for Streptococcus pneumoniae antigen.
A negative result does not exclude infection with
Streptococcus pneumoniae. Clinical correlation is
recommended.
06/08/25 12:19 Nasal Swab Influenza Types A & B (JAMAL) - Final
Negative for Influenza A & B, NAAT
Negative results must be combined with clinical observations
and patient history.
Nucleic Acid Amplification test (NAAT)performed on the
[employer] platform.
CT chest: s/p L upper lobectomy. Focal area of parenchymal airspace opacity within the right lower lobe as described, very likely representing pneumonia. Small focus of groundglass pneumonitis in the anterolateral and inferior right upper lobe.
There is a nodular density in the superior aspect of the right middle lobe, slightly increased from CT scan of January 28, 2025. Follow-up CT of the chest is recommended after treatment for pneumonia to assess for any interval change in this right
middle lobe nodule. With increasing size of right middle lobe nodule, concern is raised for neoplasia/bronchogenic carcinoma. Small pericardial effusion.
Sepsis (POA):
-due to RLL PNA
-with resulting acute metabolic encephalopathy and generalized weakness
-weaned to RA
-currently on Cefepime, ID following
Hyponatremia:
-likely a combination of volume depletion and SIADH/paraneoplastic)
-s/p IVFs, Samsca, 3% NaCl
-TSH/cortisol normal
DM2:
-new Dx
-Januvia started
-SSI/accuchecks
Other problems:
Hypokalemia: 40meq K
Heme positive stool and diarrhea: Hb stable, stool studies NEG, cont PPI, seen by GI, no scopes at this time
Lung cancer s/p recent L upper lobectomy: started on outpt chemo, ONC following
Essential HTN: cont BB/losartan
FULL/Lovenox
Dispo: d/c if pt can be transitioned to PO abx (ID to see today).
--- NOTE | 2025-06-15 09:10 | PN.DE.MGMTRT ---
Insulin Management
- -
06/15/2025 Diabetes Management Consult
Patient admitted 06/08 with weakness, R upper lobe pneumonia, sepsis, metabolic encephalopathy, new onset diabetes. PMH L lung CA, s/p recent lobectomy, on chemo, HTN, HLD, Bipolar. Prior to admission was on no medication for diabetes, A1C 6.6%.
CR .9, eGFR > 60 today.
Patient is awake alert and oriented able to discuss diabetes care. States he had pre diabetes ' for awhile' just found out he has diabetes. He does not have a meter.
Glucose range 103 to 183. Will change diet from regular to 1800 calorie and Start Januvia 100 mg daily.
Discussed with nurse.
Will follow.
Diabetes History
- -
Type of Diabetes: 2
Pre-Admission Diabetes Regimen
06/15/25
06:23
Creatinine Cancelled
Lab Results
Hemoglobin A1c 6.6 % (4.0-5.6) H 06/12/25 05:56
Insulin Pump Settings
IP Diabetes Regimen
06/14/25 06/14/25 06/14/25
11:51 17:45 22:28
Glucose
POC Glucose 150 H 183 H 139 H
06/15/25 06/15/25
06:23 08:11
Glucose Cancelled
POC Glucose 100 H
Meal type: Lunch
Meal type: Breakfast
Amount consumed: 90%
Amount consumed: 50%
Patient Education
--- NOTE | 2025-06-15 09:10 | W.PN.HOSP.TC ---
Today's Communication/Plan
-
Awaiting ID consult, if able to transition to PO antibiotics, can plan discharge. Will go home with Jesika ALTHEA
Assessment / Plan
Assessment / Plan
59-year-old male with a past medical history of lung cancer status post lobectomy and chemotherapy, hypertension, hyperlipidemia, PTSD, bipolar disorder who presented with generalized weakness and confusion for the past few days. Patient had a
lobectomy performed on 05/06, and received first dose of chemotherapy on 06/05/2025. Since receiving the first dose of chemotherapy patient has had fatigue, nausea, more than 10 episodes of diarrhea per day. He denies vomiting, dysuria,
hematuria. At the time of admission, patient had hyponatremia at 125 with concerns of pneumonia. Patient was started on 3 L of oxygen at the time of presentation but has slowly weaned off to as needed.
CT chest: s/p left upper lobectomy. Focal area of parenchymal airspace opacity within the right lower lobe as described, very likely representing pneumonia. Small focus of ground glass pneumonitis in the anterolateral and inferior right upper lobe.
There is a nodular density in the superior aspect of the right middle lobe, slightly increased from CT scan of January 28, 2025. Follow-up CT of the chest is recommended after treatment for pneumonia to assess for any interval change in this right
middle lobe nodule. With increasing size of right middle lobe nodule, concern is raised for neoplasia/bronchogenic carcinoma. Small pericardial effusion.
Assessment/plan:
# Sepsis secondary to pneumonia with metabolic encephalopathy
� CT chest revealed pneumonia
- ID consulted and following : Unasyn broadened to Cefepime per ID.
- CT A/P showed no evidence of acute abnormality, still shows PNA right base.
- Weaned to RA
# Nodular density in superior aspect of right middle lobe increased in size from 01/28/2025 CT
- Recommendation for f/u outpatient for possible biopsy and PET per pulmonary.
- Ab/pelvic CT showed no mets
# Hypokalemia -likely secondary to GI losses
- K 3.4, given 40 meq K to replete
- Mg wnl
# Hyponatremia -likely due to dehydration
- Nephrology following: s/p Samsca, 3% NaCl
- TSH and cortisol normal
# Type 2 diabetes mellitus
- HgA1c 6.6 - patient newly diagnosed prior to admission and was aware
- Diabetic nurse practitioner consult, pt started on Januvia 100 mg daily
- Continue sliding scale insulin and accuchecks daily
#Generalized weakness
- Physical therapy following
# GI bleed
# Diarrhea
- Hb stable at 12.2 - monitor H&H
- GI consulted: can consider OP EGD if symptoms persist
- Okay for regular diet
- Continue PPI twice daily and Tums as needed
- Given Imodium liquid 2 Mg p.o. every 3 hours as needed
# History of drug abuse
- The patient was given oxycodone, but symptoms still persist.� Doubt opiate withdrawals.
# History of bipolar disorder, PTSD
- Interested in meeting with psychiatry now - previously refused
- Psych appreciated
# Lung cancer
- Oncology consult: OP follow up with Dr. Clifford 06/22, next cycle due 06/26.
- Pulmonary recommends outpatient PET and possible biopsy
# Hypertension
- Metoprolol and losartan to be continued based on blood pressure
DVT prophylaxis subcutaneous Lovenox
Full code
Anticipated Discharge: Within 24 hours
Subjective/Interval History
-
Date of Service: June 15, 2025
No new complaints, diarrhea has improved. No shortness of breath.
Objective Data
-
Labs:
Laboratory Results
06/15/25 06/15/25
06:23 08:23
WBC 4.6 L
Hgb 12.2 L
Hct 34.8 L
Plt Count 301
Sodium Cancelled Pending
Potassium Cancelled Pending
Chloride Cancelled Pending
Carbon Dioxide Cancelled Pending
BUN Cancelled Pending
Creatinine Cancelled Pending
Glucose Cancelled Pending
Calcium Cancelled Pending
Total Bilirubin Cancelled Pending
AST Cancelled Pending
ALT Cancelled Pending
Alkaline Phosphatase Cancelled Pending
Vital Signs:
Vital Signs
Temp Pulse Resp BP Pulse Ox
97.7 F 64 16 133/78 97
06/15/25 07:31 06/15/25 07:31 06/15/25 07:31 06/15/25 07:31 06/15/25 07:31
I&O
06/14/25 06/15/25 06/16/25
06:59 06:59 06:59
Intake Total 1210 / 1210 1080 / 1080
Balance 1210 / 1210 1080 / 1080
Review of Systems
-
History Source: Patient
All other systems: Reviewed and negative
Constitutional: Reports No Symptoms
EENT: Reports No Symptoms Reported
Respiratory: Reports No Symptoms
Cardiac: Reports No Symptoms
Breast: Reports No Symptoms
Genitourinary: Reports No Symptoms
Musculoskeletal: Reports No Symptoms
Skin: Reports No Symptoms
Neuro: Reports No Symptoms
Endocrine: Reports No Symptoms
Physical Exam
-
General: No Apparent Distress, Comfortable and Conversant
HEENT: Normocephalic, Atraumatic, Moist Mucous Membranes and Anicteric
Respiratory: Clear to Auscultation
Cardiac: Regular Rhythm and S1/S2
GI: Soft, Nontender, Nondistended and Normal Bowel Sounds
Genito-urinary: No Costovertebral Tender
Musculoskeletal: No Clubbing, No Cyanosis and No Edema
Skin: Warm and Dry
Neuro: AO x 3 and Nonfocal/Grossly Intact
Psych: Calm
Data Reviewed
-
CT Scan: Report Reviewed by me and Discussed with Physician
Labs: Labs Reviewed by me and Discussed with Physician
Old Records: Reviewed
[2025-06-15 09:20] LABS: ALT (SGPT) 81 U/L (0-50); AST (SGOT) 43 U/L (17-59); Albumin 3.2 g/dl (3.5-5.0); Alkaline Phosphatase 72 U/L (38-126); Blood Urea Nitrogen 14 mg/dl (9-20); Calcium 8.7 mg/dl (8.4-10.2); Carbon Dioxide 28 mmol/L (22-30); Chloride 99 mmol/L (98-107); Estimated Creatinine Clearance 87 ml/min; Glucose 109 mg/dl (70-99); Magnesium 1.8 mg/dl (1.6-2.3); Potassium 3.4 mmol/L (3.5-5.1); Sodium 134 mmol/L (135-145); Total Protein 5.8 g/dl (6.3-8.2); eGFR > 60.00
--- NOTE | 2025-06-15 09:40 | W.PN.PUL.V3 ---
Today's Communication / Plan
-
Wean oxygen
Monitor hemoptysis
Antibiotics per infectious disease
Outpatient radiographic follow-up, consideration towards PET scan
Assessment
-
Patient is a 59-year-old male with history of lung cancer status post recent lobectomy on chemotherapy, hypertension, hyperlipidemia who presents to the emergency department for evaluation of generalized weakness, confusion and syncope at home. Had
temp 100.4F and had diarrhea at home. Patient recently diagnosed with lung CA, underwent left sided lobectomy on 04/15/2025, and had first dose of chemotherapy on Sunday, 3 days ago.
Was noted to be hyponatremic, CT showing RLL concerning for pneumonia. Ordered IV ceftriaxone and azithromycin. Admitting for further management 06/08/25. CT showing nodules that are concerning for infection vs malignancy. We are consulted for
evaluation.
RLL POSTERIOR SEGMENT-PNA on CT
Hemoptysis
New RML nodule
Lung adenocarcinoma s/p HARMEET resection
Hyponatremia
Diarrhea
Fever
Generalized weakness/syncope
Hypokalemia
Conditions present [employer]:
Lumbar radiculopathy
Cervical radiculopathy
Osteoarthritis
Centrilobular emphysema
Former smoker
Hypertension
Bipolar disorder
Lung cancer s/p Left upper lobectomy, radical lymph node dissection-Stage IIb NSCLCa
Chronic bronchitis
Torn meniscus right knee
Left hand surgery
Carpal tunnel release
Plan
Respiratory status relatively stable
Patient reports some hemoptysis without change-continue to observe and quantify
Nebulizers if needed-currently not bronchospastic
Supplemental oxygen as needed-not on oxygen as an outpatient
Suspect patient has new RML nodule that may indicate new malignant disease
Would need outpatient PET for clarity on needing biopsy as this would be a contralateral location to original HARMEET lesion
Onc evaluation, but signed off 06/11, recommend OP FU
Check cultures
Empiric antibiotics
Outpatient radiographic follow-up
Infectious disease to see patient
CT abdomen and pelvis 06/14/2025-posterior right lower lobe slightly improved compared to CT 06/10, no significant hiatal hernia, no significant pleural effusion, no evidence for acute abnormalities within the abdomen or pelvis
Prior ECHO results are reviewed indicating normal EF
Does not appear to be in CHF
Diarrhea and weakness following chemotx
IVFs and supportive care
Follow Na
Imodium PRN
Low K, supplementation per team
DVT prophylaxis-on Lovenox
GI prophylaxis-on pantoprazole
Nutrition
Early mobilization
Will need outpatient pulmonary evaluation in our office for PFTs and 6MWT, radiographic follow-up, possible PET scan and possible lung biopsy
Follows with Dr Bee as OP
Risk factors assessed for underlying sleep disordered breathing also noted, recommend outpatient PSG/sleep evaluation
Diagnostic Data
Chest X-Ray: 06/13/25-Right lower lobe pneumonia. Recommend radiographic follow-up to resolution.
06/08/25- Status post left upper lobectomy with postsurgical changes. The lungs appear slightly hypoinflated but clear. No evidence for pulmonary edema or pleural effusion.
CT Scan: CHEST 06/10/25- Status post left upper lobectomy. Focal area of parenchymal airspace opacity within the right lower lobe as described, very likely representing pneumonia. Small focus of groundglass pneumonitis in the anterolateral and
inferior right upper lobe. There is a nodular density in the superior aspect of the right middle lobe, slightly increased from CT scan of January 28, 2025. Follow-up CT of the chest is recommended after treatment for pneumonia to assess for any
interval change in this right middle lobe nodule. With increasing size of right middle lobe nodule, concern is raised for neoplasia/bronchogenic carcinoma. Small pericardial effusion.
Echo: 08/06/24- Normal left ventricular size and systolic function. No regional wall motion abnormalities are seen. LV ejection fraction is 60% by Freeman's method of discs. Mild concentric left ventricular hypertrophy. Normal diastolic function.
Normal right ventricular size and function. Mild tricuspid regurgitation. Estimated pulmonary artery pressure of 25-28 mmHg, assuming a right atrial pressure of 3 mmHg. Aortic sclerosis without stenosis.
Compared to the previous echo 08/19/2020, there is no significant change.
Reports and relevant images were personally reviewed.
Subjective Data
-
Date of Service:
Date of Service: June 15, 2025
Chief Complaint: Pulmonary Follow Up and Dyspnea Follow Up
Subjective:
Denies any worsening shortness of breath, chest pain, admits to some hemoptysis, no abdominal pain
Review of Systems
General: Other (Per HPI)
Objective Data
Data Reviewed
Vital Signs / I&O:
Vital Signs
Temp Pulse Resp BP Pulse Ox
97.7 F 64 16 133/78 97
06/15/25 07:31 06/15/25 07:31 06/15/25 07:31 06/15/25 07:31 06/15/25 07:31
Intake and Output
06/14/25 06/15/25 06/16/25
06:59 06:59 06:59
Intake Total 1210 / 1210 1080 / 1080
Balance 1210 / 1210 1080 / 1080
SaO2: 97
Nasal Cannula flow liters per minute: 3
Physical Exam
General: Respiratory Distress (n), Comfortable and Other (NAD)
HEENT: Normocephalic, Anicteric and Moist Mucous Membranes
Cardiovascular: Regular Rhythm
Respiratory: Clear, Crackles (Left greater than right base), Non-Labored Respirations, Accessory Resp Muscle Use (n) and Stridor (n)
GI: Soft, Non Distended and Non Tender
Neurology: Awake, Alert, Oriented and No Motor Deficits
Skin: Warm, Good Color, Cyanosis (n), Jaundice (n) and Rash (n)
Labs/Micro/Reports
Lab Data
06/15/25 06:23
06/15/25 08:23
Microbiology
06/13/25 12:44 Sputum Respiratory Culture - Final
Usual Respiratory Maria De Jesus
06/13/25 12:44 Sputum Gram Stain - Final
06/13/25 14:41 Blood/Venous Blood Culture - Preliminary
No Growth in 24 hours- Final report to follow
06/13/25 12:26 Blood/Venous Blood Culture - Preliminary
No Growth in 24 hours- Final report to follow
06/11/25 18:05 Sputum Respiratory Culture - Final
Usual Respiratory Maria De Jesus
06/11/25 18:05 Sputum Gram Stain - Final
06/08/25 16:24 Blood/Venous Blood Culture - Final
No Growth - Final Report
06/08/25 12:19 Blood/Venous Blood Culture - Final
No Growth - Final Report
[2025-06-15] MEDS: NOVOLOG FLEXPEN-LOW RESISTANCE SC ×3 (09:43→18:09)
[2025-06-15] MEDS: PROTONIX IV 40 MG IV ×2 (09:50→22:04)
[2025-06-15] MEDS: THERAGRAN 1 TABLET PO (09:50)
[2025-06-15] MEDS: NSS (PRESERVATIVE FREE) 10 ML IV ×2 (09:50→22:03)
[2025-06-15] MEDS: MUCINEX 600 MG PO ×2 (09:51→22:03)
[2025-06-15] MEDS: LOPRESSOR 12.5 MG PO ×2 (09:51→22:03)
[2025-06-15] MEDS: FOLVITE 1 MG PO (09:51)
[2025-06-15] MEDS: JANUVIA 100 MG PO (09:51)
[2025-06-15] MEDS: KCL 40 MEQ PO (09:52)
--- NOTE | 2025-06-15 11:49 | PTCARENOTE ---
I met with Meir to review diabetes management. He is newly diagnosed with T2D and states he is focusing on treatment for lung cancer.
I educated on physiology of T2D, organ damage, managing with medications, monitoring BG, nutrition, activity, sleep and managing stress. I reinforced signs of hyperglycemia, hypoglycemia and hypoglycemia protocol; BS parameters and recommended HbA1c
goals, glucometer and CGM instructions, glucose tracker, medic alert bracelet. Written material provided. He states he has dyslexia so reading is difficult, does not utilize the internet. States he will have a friend review the written material
provided.
I provided verbal explanation of using glucometer, he provided a successful repeat demonstration. States he will also pay more attention when his blood sugar is checked while inpatient. Encouraged patient to follow up with his PCP for post d/c
appointment and to monitor medication and blood glucose levels. He states his new PCP is Dr. Douglas Osorio. Requested prescription sent to pharmacy for test strips and lancets for back up SMBG. Patient verbalized understanding.
[2025-06-15 12:07] LABS: Glucose - Point of Care 82 mg/dl (70-99)
--- NOTE | 2025-06-15 13:24 | W.PN.ID1 ---
Date of Service
Date of Service: June 15, 2025
Today's Communication
Can transition cefepime to levofloxacin 750mg po daily 6 more days.
Assessment / Plan
Right lower lobe infiltrate, suspected PNA
Leukocytosis; resolved
Fever resolved
Diarrhea - C. diff neg, stool cx neg
Stage IIIb NSCLCa s/p JOHNNIE lobectomy and first cycle chemo 06/05
Lumbar radiculopathy
Cervical radiculopathy
Osteoarthritis
Emphysema
HTN
Bipolar disease
Chronic bronchitis
Recommendations:
MRSA screen negative; vancomycin previously discontinued.
Repeat sputum culture: resp julia
CT a/p: no intra-abd pathology
Repeat blood cx neg to date
s/p 7d azithromycin.
Can transition cefepime to levofloxacin 750mg po daily 6 more days.
Chief Complaint
-: Pneumonia
Subjective / Review of Systems
Feels a bit better.
Vital Signs / Physical Exam
Vital Signs
Vital Signs
Temp Pulse Resp BP Pulse Ox
97.7 F 64 16 133/78 97
06/15/25 07:31 06/15/25 07:31 06/15/25 07:31 06/15/25 07:31 06/15/25 09:40
Physical Exam
Constitutional: No Acute Distress and Comfortable
Cardiovascular: Regular Rate and S1/S2
Pulmonary: Rales (Right base crackles improved)
Gastrointestinal: Soft, Non Tender and Non Distended
Neurological: AO x 3
Objective Data
Lab Data
Lab Results
06/15/25 06:23
06/15/25 08:23
Estimated Creat Clear 87 ml/min 06/15/25 08:23
Lactic Acid 2.0 mmol/L (0.7-2.0) 06/12/25 12:41
Total Bilirubin 1.0 mg/dl (0.2-1.3) 06/15/25 08:23
AST 43 U/L (17-59) 06/15/25 08:23
ALT 81 U/L (0-50) H 06/15/25 08:23
Alkaline Phosphatase 72 U/L (38-126) 06/15/25 08:23
Most recent labs reviewed.
Micro Results:
06/13/25 12:26 Blood Culture - Preliminary
Blood/Venous No Growth in 48 hours- Final report to follow
06/13/25 12:44 Respiratory Culture - Final
Sputum Usual Respiratory Julia
Gram Stain - Final
06/13/25 14:41 Blood Culture - Preliminary
Blood/Venous No Growth in 24 hours- Final report to follow
06/11/25 18:05 Respiratory Culture - Final
Sputum Usual Respiratory Julia
Gram Stain - Final
06/08/25 16:24 Blood Culture - Final
Blood/Venous No Growth - Final Report
06/13/25 12:42 Legionella Culture - Pending
Sputum
06/08/25 12:19 Blood Culture - Final
Blood/Venous No Growth - Final Report
06/11/25 11:39 Nasal Screen MRSA (PCR) - Final
Nose MRSA not detected - performed by PCR methodology.
06/09/25 04:02 Salmonella/Shigella Culture - Final
Feces/Stool No Salmonella, Shigella, Aeromonas or Plesiomonas species
isolated.
Campylobacter Culture - Final
No Campylobacter species isolated.
Shiga Toxin Test - Final
No E. coli Shiga Toxin 1 or 2 detected.
06/08/25 17:29 Respiratory Culture - Final
Sputum Usual Respiratory Julia
Gram Stain - Final
06/09/25 10:41 C. difficile GDH Antigen & Toxins - Final
Feces/Stool Negative for toxigenic C.difficile
06/09/25 04:03 Stool Leukocytes - Final
Feces/Stool
06/08/25 20:47 Legionella Urinary Antigen - Final
Urine Negative for Legionella pneumophila Serogroup 1 antigen.
A negative result does not rule out the possiblity of
Legionella infection due to other serogroups or species of
Legionella. Clinical correlation is recommended.
Streptococcus pneumoniae Antigen (M - Final
Negative for Streptococcus pneumoniae antigen.
A negative result does not exclude infection with
Streptococcus pneumoniae. Clinical correlation is
recommended.
06/08/25 12:19 Influenza Types A & B (JAMAL) - Final
Nasal Swab Negative for Influenza A & B, NAAT
Negative results must be combined with clinical observations
and patient history.
Nucleic Acid Amplification test (NAAT)performed on the
[employer] platform.
Imaging:
06/13/25 CXR:Right lower lobe pneumonia.
06/10/2025 CT chest with contrast: status post left upper lobectomy. Focal area of parenchymal opacity within the right lower lobe suspicious for pneumonia. Small focus of groundglass pneumonitis in the anterior lateral and inferior right upper
lobe. A nodular density in the superior aspect of the right middle lobe is slightly increased from a CT in January 2025. Please see the full dictation for additional detail. Film personally reviewed.
Care Review
Plan reviewed with: Physician (Dr. Lee)
[2025-06-15 15:52] VITALS: BP 141/87
--- NOTE | 2025-06-15 16:04 | W.PN.NEPH.PH ---
Today's Communication / Plan
-
replace k
Assessment/Plan
-
IMP:
Metabolic encephalopathy/acute hypoxia likely secondary to pneumonia
Sepsis as evidenced
Generalized weakness secondary to pneumonia
n/diarrhea pot chemo
Hyponatremia likely hypovolemic
Recent lung cancer with last chemo on 06/05
Essential hypertension
HLD
chr bronchitis
Plan:
sodium slightly down to 134, cont strict FR
hypokalemia-possible from poor intake and GI loss
unlikely renal loss TTKG 3.6 only slightly higher than expected
would start daily kcl 40meq
BMP in 3days if d/c
after d/c f/u with pcp
-
-
Date of Service: June 15, 2025
CC / HPI / ROS
-
Chief Complaint:
hyponatremia
History of Present Illness:
Na slightly down to 134, k better at 3.4
BP stable
no fever
Review of Systems:
no CP/SOB
no n/v, decreased appetite
no significant diarrhea
Labs
-
Labs:
WBC 4.6 10^3/uL (4.8-10.8) L 06/15/25 06:23
RBC 4.25 10^6/uL (4.70-6.10) L 06/15/25 06:23
Hgb 12.2 g/dL (13.0-18.0) L 06/15/25 06:23
Hct 34.8 % (39.0-52.0) L 06/15/25 06:23
Plt Count 301 10^3/uL (130-400) 06/15/25 06:23
Sodium 134 mmol/L (135-145) L 06/15/25 08:23
Potassium 3.4 mmol/L (3.5-5.1) L 06/15/25 08:23
Chloride 99 mmol/L (98-107) 06/15/25 08:23
Carbon Dioxide 28 mmol/L (22-30) 06/15/25 08:23
BUN 14 mg/dl (9-20) 06/15/25 08:23
Creatinine 0.9 mg/dL (0.7-1.3) 06/15/25 08:23
eGFR > 60.00 06/15/25 08:23
Glucose 109 mg/dl (70-99) H 06/15/25 08:23
Calcium 8.7 mg/dl (8.4-10.2) 06/15/25 08:23
Phosphorus 3.5 mg/dl (2.5-4.5) 06/14/25 07:24
Albumin 3.2 g/dl (3.5-5.0) L 06/15/25 08:23
Physical Exam
-
Vital Signs:
Vital Signs
Temp Pulse Resp BP Pulse Ox
97.5 F 79 16 141/87 100
06/15/25 15:52 06/15/25 15:52 06/15/25 15:52 06/15/25 15:52 06/15/25 15:52
Cardiovascular:: Regular rate and rhythm
Respiratory:: Bilateral: CTA
Lung Excursion:: Normal
Abdomen:: Nontender and Soft
Bowel Sounds:: Normal
Extremity Edema:: None: Bilateral:
Emmanuel Catheter: No
[2025-06-15 16:35] LABS: Glucose - Point of Care 102 mg/dl (70-99)
--- NOTE | 2025-06-15 17:02 | CM ---
Pt is cleared for discharge to home today. Ref[facility] to [facility] request.
Plan: Discharge to home today with Mariama [place].
[2025-06-15] MEDS: LOVENOX 40 MG SC (18:30)
[2025-06-15 21:26] LABS: Glucose - Point of Care 121 mg/dl (70-99)
[2025-06-15 22:00] VITALS: BP 119/83
[2025-06-15] MEDS: COZAAR 50 MG PO (22:04)
[2025-06-15] MEDS: MELATONIN 5 MG PO (22:05)
[2025-06-15 23:00] VITALS: BP 108/66
[2025-06-16] MEDS: MAXIPIME 2000 MG IV (06:01)
[2025-06-16] MEDS: STERILE WATER FOR INJECTION 10 ML IV (06:01)
[2025-06-16 07:36] LABS: Hematocrit 36.7 % (39.0-52.0); Hemoglobin 12.3 g/dL (13.0-18.0); Mean Corp Hgb Conc. 33.5 g/dL (33.0-37.0); Mean Corpuscular Volume 85.7 fL (80.0-94.0); Platelet Count 447 10^3/uL (130-400); Red Cell Dist. Width 14.5 % (11.5-14.5)
[2025-06-16 07:44] VITALS: BP 108/72
[2025-06-16] MEDS: JANUVIA 100 MG PO (07:44)
[2025-06-16] MEDS: MUCINEX 600 MG PO (07:45)
[2025-06-16] MEDS: LOPRESSOR 12.5 MG PO (07:45)
[2025-06-16] MEDS: FOLVITE 1 MG PO (07:45)
[2025-06-16] MEDS: THERAGRAN 1 TABLET PO (07:45)
[2025-06-16] MEDS: PROTONIX IV 40 MG IV (07:48)
[2025-06-16] MEDS: NSS (PRESERVATIVE FREE) 10 ML IV (07:49)
[2025-06-16] MEDS: NOVOLOG FLEXPEN-LOW RESISTANCE SC (07:51)
[2025-06-16 07:52] LABS: Glucose - Point of Care 89 mg/dl (70-99)
[2025-06-16 08:02] LABS: ALT (SGPT) 79 U/L (0-50); AST (SGOT) 40 U/L (17-59); Albumin 3.6 g/dl (3.5-5.0); Alkaline Phosphatase 73 U/L (38-126); Blood Urea Nitrogen 16 mg/dl (9-20); Calcium 9.2 mg/dl (8.4-10.2); Carbon Dioxide 27 mmol/L (22-30); Chloride 101 mmol/L (98-107); Estimated Creatinine Clearance 87 ml/min; Glucose 105 mg/dl (70-99); Magnesium 1.8 mg/dl (1.6-2.3); Potassium 4.1 mmol/L (3.5-5.1); Sodium 135 mmol/L (135-145); Total Protein 6.8 g/dl (6.3-8.2); eGFR > 60.00
[2025-06-16 08:31] LABS: Nucleated Red Blood Cells % 0 % (-)
--- NOTE | 2025-06-16 08:36 | PN.DE.MGMTRT ---
Insulin Management
- -
06/16/2025 Diabetes Management Consult Follow up
Patient admitted 06/08 with weakness, R upper lobe pneumonia, sepsis, metabolic encephalopathy, new onset diabetes. PMH L lung CA, s/p recent lobectomy, on chemo, HTN, HLD, Bipolar. Prior to admission was on no medication for diabetes, A1C 6.6%.
CR .9, eGFR > 60 today.
Patient is awake alert and oriented able to discuss diabetes care. States he had pre diabetes ' for awhile' just found out he has diabetes. He does not have a meter.
Diet changed yesterday from regular to 1800 calorie and Januvia 100 mg daily added. Glucose range 82 to 121.
Will make no change to regimen.
Diabetes music education adjunct professor provided and instructed patient on steps for monitoring glucose with instructions on when to test. To report readings to primary provider. RX for test strips and lancets are in ambulatory orders, they have not been transmitted
Discussed with nurse.
Will follow.
Diabetes History
- -
Type of Diabetes: 2
Pre-Admission Diabetes Regimen
06/15/25 06/16/25
08:23 06:51
Creatinine 0.9 0.9
Lab Results
Hemoglobin A1c 6.6 % (4.0-5.6) H 06/12/25 05:56
Insulin Pump Settings
IP Diabetes Regimen
06/15/25 06/15/25 06/15/25
08:23 12:06 16:34
Glucose 109 H
POC Glucose 82 102 H
06/15/25 06/16/25 06/16/25
21:24 06:51 07:51
Glucose 105 H
POC Glucose 121 H 89
Meal type: Lunch
Meal type: Breakfast
Amount consumed: 100%
Amount consumed: 20%
Patient Education
--- NOTE | 2025-06-16 08:45 | W.PN.UPDATE ---
Update Note
Progress Note Update
I saw and evaluated the patient. I reviewed the resident�s note and agree with findings and plan as documented in the resident�s note.
Pt without new complaints.
Gen: NAD, Awake and alert
Eyes: EOMI, PERRLA, no scleral icterus.
Neck: supple.
CV: remains RRR, +S1/S2, no m/r/g.
Resp: CTAB anteriorly, no rales, wheezes, or rhonchi.
Abd: remains +BS, soft, NT, ND
Skin: No rashes.
Neuro: CN 2-12 intact, non-focal.
Psych: Normal mood and affect.
06/13/25 12:42 Sputum Legionella Culture - Preliminary
06/13/25 14:41 Blood/Venous Blood Culture - Preliminary
No Growth in 48 hours- Final report to follow
06/13/25 12:26 Blood/Venous Blood Culture - Preliminary
No Growth in 48 hours- Final report to follow
06/13/25 12:44 Sputum Respiratory Culture - Final
Usual Respiratory Maria De Jesus
06/13/25 12:44 Sputum Gram Stain - Final
06/11/25 18:05 Sputum Respiratory Culture - Final
Usual Respiratory Maria De Jesus
06/11/25 18:05 Sputum Gram Stain - Final
06/08/25 16:24 Blood/Venous Blood Culture - Final
No Growth - Final Report
06/08/25 12:19 Blood/Venous Blood Culture - Final
No Growth - Final Report
06/11/25 11:39 Nose Nasal Screen MRSA (PCR) - Final
MRSA not detected - performed by PCR methodology.
06/09/25 04:02 Feces/Stool Salmonella/Shigella Culture - Final
No Salmonella, Shigella, Aeromonas or Plesiomonas species
isolated.
06/09/25 04:02 Feces/Stool Campylobacter Culture - Final
No Campylobacter species isolated.
06/09/25 04:02 Feces/Stool Shiga Toxin Test - Final
No E. coli Shiga Toxin 1 or 2 detected.
06/08/25 17:29 Sputum Respiratory Culture - Final
Usual Respiratory Maria De Jesus
06/08/25 17:29 Sputum Gram Stain - Final
06/09/25 10:41 Feces/Stool C. difficile GDH Antigen & Toxins - Final
Negative for toxigenic C.difficile
06/09/25 04:03 Feces/Stool Stool Leukocytes - Final
06/08/25 20:47 Urine Legionella Urinary Antigen - Final
Negative for Legionella pneumophila Serogroup 1 antigen.
A negative result does not rule out the possiblity of
Legionella infection due to other serogroups or species of
Legionella. Clinical correlation is recommended.
06/08/25 20:47 Urine Streptococcus pneumoniae Antigen (M - Final
Negative for Streptococcus pneumoniae antigen.
A negative result does not exclude infection with
Streptococcus pneumoniae. Clinical correlation is
recommended.
06/08/25 12:19 Nasal Swab Influenza Types A & B (JAMAL) - Final
Negative for Influenza A & B, NAAT
Negative results must be combined with clinical observations
and patient history.
Nucleic Acid Amplification test (NAAT)performed on the
[employer] platform.
CT chest: s/p L upper lobectomy. Focal area of parenchymal airspace opacity within the right lower lobe as described, very likely representing pneumonia. Small focus of groundglass pneumonitis in the anterolateral and inferior right upper lobe.
There is a nodular density in the superior aspect of the right middle lobe, slightly increased from CT scan of January 28, 2025. Follow-up CT of the chest is recommended after treatment for pneumonia to assess for any interval change in this right
middle lobe nodule. With increasing size of right middle lobe nodule, concern is raised for neoplasia/bronchogenic carcinoma. Small pericardial effusion.
Sepsis (POA):
-due to RLL PNA
-with resulting acute metabolic encephalopathy and generalized weakness
-weaned to RA
-currently on Cefepime, d/c on Levaquin as per ID
Hyponatremia:
-likely a combination of volume depletion and SIADH/paraneoplastic)
-s/p IVFs, Samsca, 3% NaCl
-TSH/cortisol normal
DM2:
-new Dx
-Januvia started
-SSI/accuchecks
Other problems:
Hypokalemia: 40meq K
Heme positive stool and diarrhea: Hb stable, stool studies NEG, cont PPI, seen by GI, no scopes at this time
Lung cancer s/p recent L upper lobectomy: started on outpt chemo, ONC following
Essential HTN: cont BB/losartan
FULL/Lovenox
Dispo: Pt was discharged yesterday and he refused to leave. Pt states his sister is picking him up this AM.
--- NOTE | 2025-06-16 08:57 | W.PN.PUL.V3 ---
Today's Communication / Plan
-
Stable for proposed discharge
Increase activity
Finite course of antibiotics
Outpatient radiographic [id number] with pulmonary
Assessment
-
Patient is a 59-year-old male with history of lung cancer status post recent lobectomy on chemotherapy, hypertension, hyperlipidemia who presents to the emergency department for evaluation of generalized weakness, confusion and syncope at home. Had
temp 100.4F and had diarrhea at home. Patient recently diagnosed with lung CA, underwent left sided lobectomy on 04/15/2025, and had first dose of chemotherapy on Sunday, 3 days ago.
Was noted to be hyponatremic, CT showing RLL concerning for pneumonia. Ordered IV ceftriaxone and azithromycin. Admitting for further management 06/08/25. CT showing nodules that are concerning for infection vs malignancy. We are consulted for
evaluation.
RLL POSTERIOR SEGMENT-PNA on CT
Hemoptysis
New RML nodule
Lung adenocarcinoma s/p HARMEET resection
Hyponatremia
Diarrhea
Fever
Generalized weakness/syncope
Hypokalemia
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
Lumbar radiculopathy
Cervical radiculopathy
Osteoarthritis
Centrilobular emphysema
Former smoker
Hypertension
Bipolar disorder
Lung cancer s/p Left upper lobectomy, radical lymph node dissection-Stage IIb NSCLCa
Chronic bronchitis
Torn meniscus right knee
Left hand surgery
Carpal tunnel release
Plan
Respiratory status continues to improve
Patient reports some hemoptysis without change-continue to observe and quantify-no reports this a.m.
Nebulizers if needed-currently not bronchospastic
Supplemental oxygen as needed-not on oxygen as an outpatient
Suspect patient has new RML nodule that may indicate new malignant disease
Would need outpatient PET for clarity on needing biopsy as this would be a contralateral location to original HARMEET lesion
Onc evaluation, but signed off 06/11, recommend OP FU
Check cultures
Empiric antibiotics
Outpatient radiographic follow-up
Infectious disease to see patient
CT abdomen and pelvis 06/14/2025-posterior right lower lobe slightly improved compared to CT 06/10, no significant hiatal hernia, no significant pleural effusion, no evidence for acute abnormalities within the abdomen or pelvis
Prior ECHO results are reviewed indicating normal EF
Does not appear to be in CHF
Diarrhea and weakness following chemotx
IVFs and supportive care
Follow Na
Imodium PRN
Low K, supplementation per team
DVT prophylaxis-on Lovenox
GI prophylaxis-on pantoprazole
Nutrition
Early mobilization
Will need outpatient pulmonary evaluation in our office for PFTs and 6MWT, radiographic follow-up, possible PET scan and possible lung biopsy
Follows with Dr Bee as OP
Risk factors assessed for underlying sleep disordered breathing also noted, recommend outpatient PSG/sleep evaluation
Diagnostic Data
Chest X-Ray: 06/13/25-Right lower lobe pneumonia. Recommend radiographic follow-up to resolution.
06/08/25- Status post left upper lobectomy with postsurgical changes. The lungs appear slightly hypoinflated but clear. No evidence for pulmonary edema or pleural effusion.
CT Scan: CHEST 06/10/25- Status post left upper lobectomy. Focal area of parenchymal airspace opacity within the right lower lobe as described, very likely representing pneumonia. Small focus of groundglass pneumonitis in the anterolateral and
inferior right upper lobe. There is a nodular density in the superior aspect of the right middle lobe, slightly increased from CT scan of January 28, 2025. Follow-up CT of the chest is recommended after treatment for pneumonia to assess for any
interval change in this right middle lobe nodule. With increasing size of right middle lobe nodule, concern is raised for neoplasia/bronchogenic carcinoma. Small pericardial effusion.
Echo: 08/06/24- Normal left ventricular size and systolic function. No regional wall motion abnormalities are seen. LV ejection fraction is 60% by Freeman's method of discs. Mild concentric left ventricular hypertrophy. Normal diastolic function.
Normal right ventricular size and function. Mild tricuspid regurgitation. Estimated pulmonary artery pressure of 25-28 mmHg, assuming a right atrial pressure of 3 mmHg. Aortic sclerosis without stenosis.
Compared to the previous echo 08/19/2020, there is no significant change.
Reports and relevant images were personally reviewed.
Subjective Data
-
Date of Service:
Date of Service: June 16, 2025
Chief Complaint: Pulmonary Follow Up and Dyspnea Follow Up
Subjective:
Feels better, less congested, nonproductive cough, no chest pain or abdominal pain
Review of Systems
General: Other (Per HPI)
Objective Data
Data Reviewed
Vital Signs / I&O:
Vital Signs
Temp Pulse Resp BP Pulse Ox
97.2 F 69 14 108/72 97
06/16/25 07:44 06/16/25 07:44 06/16/25 07:44 06/16/25 07:44 06/16/25 07:44
Intake and Output
06/15/25 06/16/25 06/17/25
06:59 06:59 06:59
Intake Total 1080 / 1080 720 / 720 480 / 480
Balance 1080 / 1080 720 / 720 480 / 480
SaO2: 97
Nasal Cannula flow liters per minute: 3
Physical Exam
General: Respiratory Distress (n), Comfortable and Other (NAD)
HEENT: Normocephalic, Anicteric and Moist Mucous Membranes
Cardiovascular: Regular Rhythm
Respiratory: Clear, Crackles (Left greater than right base), Non-Labored Respirations, Accessory Resp Muscle Use (n) and Stridor (n)
GI: Soft, Non Distended and Non Tender
Neurology: Awake, Alert, Oriented and No Motor Deficits
Skin: Warm, Good Color, Cyanosis (n), Jaundice (n) and Rash (n)
Labs/Micro/Reports
Lab Data
06/16/25 06:51
06/16/25 06:51
Microbiology
06/13/25 12:42 Sputum Legionella Culture - Preliminary
06/13/25 14:41 Blood/Venous Blood Culture - Preliminary
No Growth in 48 hours- Final report to follow
06/13/25 12:26 Blood/Venous Blood Culture - Preliminary
No Growth in 48 hours- Final report to follow
06/13/25 12:44 Sputum Respiratory Culture - Final
Usual Respiratory Maria De Jesus
06/13/25 12:44 Sputum Gram Stain - Final
06/11/25 18:05 Sputum Respiratory Culture - Final
Usual Respiratory Maria De Jesus
06/11/25 18:05 Sputum Gram Stain - Final
06/08/25 16:24 Blood/Venous Blood Culture - Final
No Growth - Final Report
06/08/25 12:19 Blood/Venous Blood Culture - Final
No Growth - Final Report
--- NOTE | 2025-06-16 11:21 | W.PN.HOSP.TC ---
Today's Communication/Plan
-
Patient being discharged now.
Assessment / Plan
Assessment / Plan
59-year-old male with a past medical history of lung cancer status post lobectomy and chemotherapy, hypertension, hyperlipidemia, PTSD, bipolar disorder who presented with generalized weakness and confusion for the past few days. Patient had a
lobectomy performed on 05/06, and received first dose of chemotherapy on 06/05/2025. Since receiving the first dose of chemotherapy patient has had fatigue, nausea, more than 10 episodes of diarrhea per day. He denies vomiting, dysuria,
hematuria. At the time of admission, patient had hyponatremia at 125 with concerns of pneumonia. Patient was started on 3 L of oxygen at the time of presentation but has slowly weaned off to as needed.
CT chest: s/p left upper lobectomy. Focal area of parenchymal airspace opacity within the right lower lobe as described, very likely representing pneumonia. Small focus of ground glass pneumonitis in the anterolateral and inferior right upper lobe.
There is a nodular density in the superior aspect of the right middle lobe, slightly increased from CT scan of January 28, 2025. Follow-up CT of the chest is recommended after treatment for pneumonia to assess for any interval change in this right
middle lobe nodule. With increasing size of right middle lobe nodule, concern is raised for neoplasia/bronchogenic carcinoma. Small pericardial effusion.
Assessment/plan:
# Sepsis secondary to pneumonia with metabolic encephalopathy
� CT chest revealed pneumonia
- Infectious disease consulted: Was on cefepime here, and is getting discharged with Levaquin 750 mg PO for 6 days
- CT A/P showed no evidence of acute abnormality, still shows PNA right base.
- Weaned to RA
# Nodular density in superior aspect of right middle lobe increased in size from 01/28/2025 CT
- Recommendation for f/u outpatient for possible biopsy and PET per pulmonary.
- Ab/pelvic CT showed no mets
# Hypokalemia -likely secondary to GI losses
- K 4.1 today
- Mg within normal limits
# Hyponatremia -likely due to dehydration
- Nephrology following: s/p Samsca, 3% NaCl
- TSH and cortisol normal
# Type 2 diabetes mellitus
- HgA1c 6.6 - patient newly diagnosed prior to admission and was aware
- Diabetic nurse practitioner consult, pt started on Januvia 100 mg daily
- Continue sliding scale insulin and accuchecks daily
#Generalized weakness
- Physical therapy following
# GI bleed
# Diarrhea
- Hb stable at 12.3
- GI consulted: can consider OP EGD if symptoms persist
- Okay for regular diet
- Continue PPI twice daily and Tums as needed
- Continue Imodium liquid 2 Mg p.o. every 3 hours as needed
# History of drug abuse
- The patient was given oxycodone, but symptoms still persist.� Doubt opiate withdrawals.
# History of bipolar disorder, PTSD
- Interested in meeting with psychiatry now - previously refused
- Psych appreciated
# Lung cancer
- Oncology consult: OP follow up with Dr. Clifford 06/22, next cycle due 06/26.
- Pulmonary recommends outpatient PET and possible biopsy
# Hypertension
- Metoprolol and losartan to be continued based on blood pressure
DVT prophylaxis subcutaneous Lovenox
Full code
Anticipated Discharge: Today
Subjective/Interval History
-
Date of Service: June 16, 2025
Patient states he 'feels much better' and 'is ready to go'. No new complaints.
Objective Data
-
Labs:
Laboratory Results
06/16/25
06:51
WBC 7.0
Hgb 12.3 L
Hct 36.7 L
Plt Count 447 H D
Sodium 135
Potassium 4.1
Chloride 101
Carbon Dioxide 27
BUN 16
Creatinine 0.9
Glucose 105 H
Calcium 9.2
Total Bilirubin 1.1
AST 40
ALT 79 H
Alkaline Phosphatase 73
Vital Signs:
Vital Signs
Temp Pulse Resp BP Pulse Ox
97.2 F 69 14 108/72 97
06/16/25 07:44 06/16/25 07:44 06/16/25 07:44 06/16/25 07:44 06/16/25 08:57
I&O
06/15/25 06/16/25 06/17/25
06:59 06:59 06:59
Intake Total 1080 / 1080 720 / 720 960 / 960
Balance 1080 / 1080 720 / 720 960 / 960
Review of Systems
-
History Source: Patient
All other systems: Reviewed and negative
Constitutional: Reports No Symptoms
EENT: Reports No Symptoms Reported
Respiratory: Reports No Symptoms
Cardiac: Reports No Symptoms
Abdomen/GI: Reports No Symptoms
Breast: Reports No Symptoms
Genitourinary: Reports No Symptoms
Musculoskeletal: Reports No Symptoms
Skin: Reports No Symptoms
Neuro: Reports No Symptoms
Endocrine: Reports No Symptoms
Hematologic / Lymphatic: Reports No Symptoms
Allergy / Immunology: Reports No Symptoms
Physical Exam
-
General: No Apparent Distress, Comfortable and Conversant
HEENT: Normocephalic, Atraumatic, Moist Mucous Membranes, Anicteric, Nose Appears Normal and Ears Appear Normal
Respiratory: Clear to Auscultation
Cardiac: Regular Rhythm and S1/S2
GI: Soft, Nontender, Nondistended and Normal Bowel Sounds
Musculoskeletal: No Clubbing, No Cyanosis and No Edema
Skin: Warm and Dry
Neuro: Awake, AO x 3 and Nonfocal/Grossly Intact
Hematologic / Lymphatic: No Lymphadenopathy
Psych: Calm
Data Reviewed
-
Labs: Labs Reviewed by me and Discussed with Physician
Old Records: Reviewed
--- NOTE | 2025-06-16 16:59 | W.DCSUMMARY ---
Discharge Summary
Discharge Data
Date of Admission: 06/08/25
Date of Discharge: 06/16/25
-
Pending Results: No
Hospital Course
59-year-old male with a history of lung cancer status post recent lobectomy and chemotherapy, hypertension, hyperlipidemia who presents with generalized weakness and confusion for the past few days. Patient had lobectomy performed on 04/15/2025, and
received his first dose of chemotherapy on Sunday (06/05/2025). Since receiving his first chemotherapy, patient has had fatigue, nausea, > 10 episodes of diarrhea per day. Patient also has shortness of breath and a productive cough. He denies
vomiting, dysuria or hematuria. Patient did not take nausea medications after chemotherapy and thinks that may be the cause of why his symptoms progressed. He has dyslexia and has trouble reading medication names, which may have contributed to
this. At the time of admission patient had hyponatremia (Na 125) with concerns of pneumonia. Hypotensive, tachycardic, tachypneic with leukocytosis on CBC, meeting criteria for sepsis.
06/08-06/09: Mentation improved with IV fluids in the ED. Patient was started on IV ceftriaxone and azithromycin and blood cultures/sputum/urine Legionella/strep pneumoniae were sent. He was given supplemental oxygen as needed and Tylenol as needed.
Losartan was held due to low blood pressure. Physical therapy consult was sent. He was seen by nephrology on and hyponatremia was possibly due to hypovolemia due to recurrent episodes of diarrhea. He was continued on isotonic fluids, and we were
monitoring labs. Consulted oncology for recommendations. Obtain stool culture and proceeded to full liquid diet. Metoprolol and losartan to be continued based on blood pressure.
06/10/2025: X-ray did not show any signs of pneumonia so CT chest was ordered. Infectious disease was consulted. We were following BMP to monitor hyponatremia. Patient endorsed having black stools so Hemoccult test was done. It came up positive
so GI was consulted. We also suspected opioid withdrawal so gave patient oxycodone to see if symptoms improved. Continue with metoprolol and losartan based on blood pressure.
06/11/2025: CT chest revealed pneumonia. Patient switched to Zosyn and vancomycin. Patient's blood glucose was 180 at 6 AM, low-dose basal bolus insulin therapy. GI recommended trending hemoglobin and considering outpatient EGD if patient's
symptoms persisted. He was okay for full liquids if H&H were stable and then okay to advance diet later. Continue with PPI twice daily and Tums as needed. Patient was still having diarrhea and shaking opioid withdrawal is less likely.
06/12/2025: MRSA screen was negative so vancomycin was discontinued and patient was switched from Zosyn to Unasyn 3 g every 6 hours. TSH and random cortisol was ordered. Lactic acid and ammonia were within normal limits. Patient's K was 2.9, KCl
rider 40 Mg IV x 2 to replete. Nephrology gave Samsca with no response, continue 3% saline. Concern for paraneoplastic syndrome if sodium still persisted in 120s despite Samsca and 3% saline. Patient started on Imodium as needed. Oncology was
consulted for history of lung cancer and they recommended continuing supportive care and monitoring status.
06/13/2025: Continue antibiotics and pulmonology consult was sent for evaluation of nodule on CT. Patient's potassium was repleted again. Repeated H&H in the afternoon.
06/14/2025: CT abdomen/pelvis to evaluate possible metastatic cyst and source of fever despite antibiotics. Psychiatry consulted as patient expressed interest in meeting with psych.
06/15/2025: Patient was started on Januvia 100 Mg daily by FERMIN WINKLER, advised to continue sliding scale insulin and Accu-Cheks daily. TSH and cortisol were normal. Abdomen pelvis CT showed no cholestasis. Unasyn was broadened to cefepime per ID.
Awaiting ID consult to see if patient will be able to transition to p.o. antibiotics so we can plan discharge. Will go home with Jesika [place].
06/16/2025: Patient was medically cleared for discharge yesterday, but he wanted to leave this morning.
Discharge Plan
-
Patient Disposition: Home (Routine Discharge)
Discharge Diagnosis/Procedures: Sepsis secondary to pneumonia with metabolic encephalopathy
Condition: Fair
Diet: Diabetic, Carb Controlled
Additional Diets: 1800-calorie (15 carb)calorie diabetic diet
Activity: No restrictions
Driving Restrictions: As prior to admission
Bathing Restrictions: None
Blood Work: CBC with differential, CMP within a week, script from PCP
Others Tests: Biopsy and PET for nodular density in superior aspect of right middle lobe seen on chest CT
Other Services: VN
Referrals:
Lynsey Bee MD [Active, Pulmonary Medicine] - in two to three weeks
Referral Note: Pneumonia, pulmonary nodule, suspected sleep disordered breathing. Follow-up for possible biopsy and PET scan.
Douglas Osorio DO [Family Provider, Family Practice] - in less than 1 week
Referral Note: Follow-up for your infection.
Jayy Clifford MD [Active, Hematology / Oncology] - 06/22/25 8:15 am
Additional Discharge Medication Instructions: Take levofloxacin 750 mg daily for 6 more days.
Prescriptions:
New
Januvia 100 mg Tablet
100 mg PO DAILY Qty: 30 0RF
melatonin 5 mg Tablet
5 mg PO HS 30 Days Qty: 30 0RF
acetaminophen 325 mg Tablet
650 mg PO Q4HPRN PRN (Reason: before mild pain) Qty: 60 0RF
calcium carbonate [Calcium Antacid] 200 mg calcium (500 mg) Tablet,Chewable
400 mg PO Q4HPRN PRN (Reason: indigestion) Qty: 60 0RF
levofloxacin 750 mg tablet
750 mg PO DAILY Qty: 6 0RF
Rx Instructions:
Please take 1 daily starting 06/16/2025 for a total of 6 days.
(DME) Contour Next Test Strips Strip
Qty: 200 1RF
Rx Instructions:
Test glucose fasting and 2 hours after a meal in pattern provided. E11.65
(DME) lancets [Color Lancets] 21 gauge Misc
Qty: 200 1RF
Rx Instructions:
Test glucose fasting and 2 hours after a meal in pattern provided. E11.65
Continued
losartan 50 mg Tablet
50 mg PO HS 30 Days Qty: 30 0RF
therapeutic multivitamin Tablet
1 tab PO DAILY 30 Days Qty: 30 0RF
prochlorperazine maleate [Compazine] 10 mg Tablet
10 mg PO BIDPRN PRN (Reason: nausea) 30 Days Qty: 60 0RF
ondansetron 8 mg Tablet,Disintegrating
8 mg PO [id number] PRN (Reason: nausea) 30 Days Qty: 90 0RF
folic acid 1 mg Tablet
1 mg PO DAILY 30 Days Qty: 30 0RF
metoprolol tartrate 25 mg Tablet
12.5 mg PO BID 30 Days Qty: 60 0RF
umeclidinium-vilanterol [Anoro Ellipta] 62.5-25 mcg/actuation Blister With Device
1 inh INHALATION R DAILY 30 Days Qty: 2 0RF
Discontinued
dexamethasone 4 mg Tablet
4 mg PO DIRECTED
Rx Instructions:
take 1 tab bid the day before, the day or and day after chemo
Discharge Orders:
Discharge Patient (As Directed); Ordered 06/15/25
Ordered By: Bhavik Lee
Discharge Date and Time
Discharge Date/Time: 06/16/25 09:52
Print Language: AZERI
== END 2025-06-16 09:52 | disposition home health service (06) | DRG 871 ==
LOC: 3 WEST ACU 15:57
PROVIDERS: Internal Medicine Nephrology; Nurse Practitioner Adult Health; Physician Assistant; Registered Nurse; ADMITTING PHYSICIAN Hospitalist; ATTENDING PHYSICIAN Internal Medicine; CONSULT PHYSICIAN Internal Medicine; CONSULT PHYSICIAN Internal Medicine Infectious Disease; CONSULT PHYSICIAN Psychiatry & Neurology Psychiatry; CONSULT PHYSICIAN Student in an Organized Health Care Education/Training Program; EMERGENCY PHYSICIAN Emergency Medicine; FAMILY PHYSICIAN Family Medicine; OTHER PHYSICIAN Internal Medicine; OTHER PHYSICIAN Internal Medicine Hematology & Oncology
DX: A41.9 Sepsis, unspecified organism (principal); G93.41 Metabolic encephalopathy; J18.9 Pneumonia, unspecified organism; C34.92 Malignant neoplasm of unspecified part of left bronchus or lung; D84.821 Immunodeficiency due to drugs; K92.1 Melena; R04.2 Hemoptysis; E22.2 Syndrome of inappropriate secretion of antidiuretic hormone; E78.00 Pure hypercholesterolemia, unspecified; E87.6 Hypokalemia; Z90.2 Acquired absence of lung [part of]; Z79.899 Other long term (current) drug therapy; I10 Essential (primary) hypertension; M54.12 Radiculopathy, cervical region; M54.16 Radiculopathy, lumbar region; J43.2 Centrilobular emphysema; Z87.891 Personal history of nicotine dependence; Z79.60 Long term (current) use of unspecified immunomodulators and immunosuppressants; K21.9 Gastro-esophageal reflux disease without esophagitis; R53.1 Weakness; F31.9 Bipolar disorder, unspecified; E86.0 Dehydration; E11.9 Type 2 diabetes mellitus without complications; R91.1 Solitary pulmonary nodule; Z79.84 Long term (current) use of oral hypoglycemic drugs; Z11.52 Encounter for screening for COVID-19; R09.02 Hypoxemia
CPT/HCPCS: 70450; 71046; 71260; 74177; 80048; 80053; 80202; 80306; 81003; 81015; 82140; 82533; 82550; 82570; 82962; 83036; 83605; 83735; 83930; 83935; 84100; 84133; 84300; 84439; 84443; 85014; 85018; 85025; 85027; 87040; 87045; 87046; 87070; 87081; 87205; 87324; 87427; 87449; 87502; 87641; 87811; 87899; 89055; 93005; 96360; 96361; 97116; 97163; 97530; 99285; 99406; Q9967

== ENCOUNTER → 2025-07-22 10:31 | Outpatient (REF) | payer OTHER, SELFPAY | LOC: RAD 10:31 | PROVIDERS: ATTENDING PHYSICIAN Nurse Practitioner Primary Care; FAMILY PHYSICIAN Family Medicine | DX: C34.12 Malignant neoplasm of upper lobe, left bronchus or lung (principal) | CPT/HCPCS: 71046 ==

== ENCOUNTER → 2025-08-28 06:56 | Outpatient (REF) | payer OTHER, SELFPAY | LOC: RAD 06:56 | PROVIDERS: ATTENDING PHYSICIAN Nurse Practitioner Adult Health; FAMILY PHYSICIAN Family Medicine | DX: C34.12 Malignant neoplasm of upper lobe, left bronchus or lung (principal) | CPT/HCPCS: 71260; Q9967 ==

== ENCOUNTER → 2025-08-29 22:00 | Outpatient (REF) | payer OTHER, SELFPAY | LOC: DHSLP 22:00 | PROVIDERS: ATTENDING PHYSICIAN Internal Medicine; FAMILY PHYSICIAN Family Medicine | DX: G47.33 Obstructive sleep apnea (adult) (pediatric) (principal) | CPT/HCPCS: 95806 ==

== ENCOUNTER → 2025-09-24 09:13 | Outpatient (REF) | payer OTHER, SELFPAY | LOC: HWRCS 09:13 | PROVIDERS: ATTENDING PHYSICIAN Internal Medicine Cardiovascular Disease; FAMILY PHYSICIAN Family Medicine | DX: R06.02 Shortness of breath (principal) | CPT/HCPCS: 93306 ==

== ENCOUNTER → 2025-10-21 08:44 | Outpatient (REF) | payer OTHER, SELFPAY | LOC: PET 08:44 | PROVIDERS: ATTENDING PHYSICIAN Internal Medicine Hematology & Oncology | DX: C34.12 Malignant neoplasm of upper lobe, left bronchus or lung (principal) | CPT/HCPCS: 78815; A9552 ==